=== PATIENT | female | born 1995 | race Caucasian/White ===

== ENCOUNTER → 2025-02-19 | Outpatient (CLI) | payer OTHER, SELFPAY ==
[2025-02-23 21:07] LABS: Chlamydia By Nucleic Acid AMP Negative (Negative); Gonococcus By Nucleic Acid AMP Negative (Negative)
== END | disposition home or self-care (01) ==
LOC: LABSPEC 16:06
PROVIDERS: Visit Provider Advanced Practice Midwife
DX: O09.90 Supervision of high risk pregnancy, unspecified, unspecified trimester (principal); Z3A.00 Weeks of gestation of pregnancy not specified
CPT/HCPCS: 87086; 87088; 87491; 87591

== ENCOUNTER → 2025-04-20 | Outpatient (CLI) | payer OTHER, SELFPAY ==
--- OUTSIDE RECORDS SUMMARY | 2024-12-05 07:26 | XMS RPT_ITS ---
Author Name Auto Generated Organization OHIP Care Team Providers Care Wardrobe Coordinator Name Role Phone JS BUTTERFIELD Attending Unavailable IVÁN RODRIGUEZ Primary Care Unavailabl e LINDSAY SYKES Attending Unavailable JS BUTTERFIELD Primary Care Unavailable JS BUTTERFIELD Attending Unavailable JS BUTTERFIELD Primary Care Unavailable JS BUTTERFIELD Primary Care Unavailable PROBLEMS DATE TYPE CONDITION / CODE ATTENDING STATUS [facility] 12/05/2024 Admitting Diagnosis Diarrhea, unspecified / R19.7(ICD-10) JS BUTTERFIELD [facility] 11/06/2024 Admitting Diagnosis Encounter for screening for malignant neoplasm of cervix / Z12.4(ICD-10) LINDSAY SYKES [facility] 11/06/2024 Admitting Diagnosis Encounter for gynecological examination (general) (routine) without abnormal findings / Z01.419(ICD-10) LINDSAY SYKES [facility] 05/23/2024 Admitting Diagnosis Encounter for general adult medical examination without abnormal findings / Z00.00(ICD-10) JS BUTTERFIELD [facility] 05/23/2024 Admitting Diagnosis Encounter for other screening for malignant neoplasm of breast / Z12.39(ICD-10) JS BUTTERFIELD Active [facility] PROCEDURES No Procedure Records Found RESULTS GASTROINTESTINAL PATHOGEN PANEL, REAL TIME PCR Collected: 12/05/2024 11:10 AM Status: F Source: [facility] Order Comment: FASTING:YES FASTING: YES TYPE CODE TESTS RESULT OUT OF RANGE REFERENCE UNITS LAB [id number] CAMPYLOBACTER GROUP NOT DETECTED Normal NOT DETECTED LAB [id number] SALMONELLA SPECIES NOT DETECTED Normal NOT DETECTED LAB 99517086 SHIGELLA SPECIES NOT DETECTED Normal NOT DETECTED LAB 93220467 VIBRIO GROUP NOT DETECTED Normal NOT DETECTED LAB 91437023 YERSINIA ENTEROCOLITICA NOT DETECTED Normal NOT DETECTED LAB 64272554 SHIGA TOXIN 1 NOT DETECTED Normal NOT DETECTED LAB 63187503 SHIGA TOXIN 2 NOT DETECTED Normal NOT DETECTED LAB 93453627 NOROVIRUS GI/GII NOT DETECTED Normal NOT DETECTED LAB 88139944 ROTAVIRUS A NOT DETECTED Normal NOT DETECTED Result Comment: Organisms in cluded in the Campylobacter group include C. coli, C. jejuni, and C. aretha. Organisms included in the Shigella species include S. dysenteriae, S. boydii, S. sonnei, and S. flexneri. Organisms included in the Vibrio group include V. cholerae and V. parahaemolyticus. Performed By: #### [id number] ### # [facility] [address], [address] [place] [phone] Director Orange: Amish Willis MD HUMAN PAPILLOMA VIRUS 16 Collected: 3:49 PM Status: F Source: [facility] Order Comment: Testing for h igh-risk (HR) types of human papilloma virus (HPV) is performed by the [place] gogo HPV Test. The gogo HPV Test is a qualitative polymerase chain reaction that amplifies DNA of HPV16, HPV18, and 12 other high-risk HPV types (31, 33, 35, 39, 45, 51, 52, 56, 58, 59, 66, and 68) associated with cervical cancer and its precursor lesions. A positive result indicates the presence of HPV DNA due to one or more of the 14 genotypes: 16, 18, 31, 33, 35, 39, 45, 51, 52, 56, 58, 59, 66, and 68. Negative results indicates HPV DNA concentrations are undectectable or below the pre-set threshold for detection. False negative results may be associated with unoptimized sampling. A negative HR HPV result does not exclude the possibility of future cytologic HSIL or underlying CIN2-3 or cancer. This test is approved by the [place] Food and Drug Administration. Results of this test should be interpreted in conjunction with the patient Pap test results. Please refer to ASCCP current quidelines for the use of HPV DNA testing, result interpretation, and patient management. The performance of this test was verified by the [facility] at [facility]. The lab is certified under the Clinical Laboratory Amendments of 1988 (CLIA 88) as qualified to perform high complexity clinical laboratory testing. PERFORMING LAB LOCATIONS [facility]: [address] [place] [address] TYPE CODE TESTS RESULT OUT OF RANGE REFERENCE UNITS LAB 51035-1([facility]) Human papilloma virus high-risk genotypes panel Negative Negative LAB 75007-3([facility]) Human papilloma virus 16 DNA Negative Negative LAB 40444-0([facility]) Human papilloma virus 18 DNA Negative Negative LAB 17123-6([facility]) Human papilloma virus 31+33+35+39+4 5+51+52+56+58 +59+66+68 DNA Negative Negative Performed By: #### 01710-3 # ### HAILEY Pacheco ([id number]) [facility] ([facility]) [address] [place] [address] CERVICAL Observed: 11/06/2024 3:49 PM Status: F Source: [facility] Pathology report.total SEE COMMENT Gynecologic Cytology Case: [id number] Authorizing Provider: ELI Penaloza, Collected: 11/06/2024 1549 WANDA, LINDA Ordering Location: [facility] Received: 11/06/2024 1549 First Screen: CHET Gomes Rescreen: CHET Mejía Specimen: ThinPrep Liquid-Based Pap-Imaging System Screen, CERVIX, SCREENING Cytology study comment SEE COMMENT A. THINPREP PAP CERVIX, SCREENING - Specimen Adequacy Satisfactory for evaluation; endocervical/transformation zone component is present General Categorization Negative for intraepithelial lesion or malignancy. Descriptive Interpretation Negative for intraepithelial lesion or malignancy at 1101 EDT Laboratory comment SEE COMMENT Slide(s) initially screened by CHET Gomes at [facility] [address] [place] [address] QC review performed by CHET Mejía at [id number] [facility] [phone] By the signature on this report, the individual or group listed as making the Final Interpretation/Diagnosis certifies that they have reviewed this case. This specimen has been analyzed by the [employer] Technology[employer] Imaging System (Go[employer], [employer].), an automated imaging and review system, which assists the laboratory in evaluating cells on ThinPrep Pap tests. Following automated imaging, selected shell from every slide were reviewed by a impregnator carbon products and/or pathologist. Cervical cytology is a screening procedure primarily for squamous cancers and precursors and has associated false-negative and false-positives results as evidenced by published data. Your patient's test should be interpreted in this context, together with the patient's history and clinical findings. Regular sampling and follow-up of unexplained clinical signs and symptoms are recommended to minimize false negative results. LAB AP HPV HR Always (all interpretations) LAB AP HPV GENOTYPE QUESTION Yes Date last menstrual period 10/21/2024 BRCA 1/2 SEQUENCING AND DEL/DUP Collected: 10/09/2024 6:07 AM Status: C Source: [facility] Order Comment: This order co ntains result documents that were not sent. The result might be incomplete. TYPE CODE TESTS RESULT OUT OF RANGE REFERENCE UNITS LAB [id number] SCAN RESULT See Scanned Result LAB MPRESULTTYPE COMMENTS - MP RESULT TYPE Report has been scanned to the patient's chart. Performed By: #### [id number] #### [facility] ([id number]) [address] [place] [address] LIPID PANEL, STANDARD Collected: 10/09/2024 6:05 AM Status: F Source: [facility] Order Comment: FASTING:YES FASTING: YES TYPE CODE TESTS RESULT OUT OF RANGE REFERENCE UNITS LAB [id number] CHOLESTEROL, TOTAL 153 Normal <200 mg/dL LAB 62985281 HDL CHOLESTEROL 49 Low > OR = 50 mg/dL LAB 91943364 TRIGLYCERIDES 80 Normal <150 mg/dL LAB 79026674 LDL-CHOLESTEROL 87 Normal mg/dL (calc) Result Comment: Reference ra nge: <100 Desirable range <100 mg/dL for primary prevention; <70 mg/dL for patients with CHD or diabetic patients with > or = 2 CHD risk factors. LDL-C is now calculated using the Rosie calculation, which is a validated novel method providing better accuracy than the Friedewald equation in the estimation of LDL-C. Jordi MORALES et al. MAC. 2013;310(19): 8183-8012 (http://education.LeukoDx.Silicium Energy/faq/WRQ089) LAB 91186457 CHOL/HDLC RATIO 3.1 Normal <5.0 (calc) LAB 51503482 NON HDL CHOLESTEROL 104 Normal <130 mg/dL (calc) Result Comment: For patients with diabetes plus 1 major ASCVD risk factor, treating to a non-HDL-C goal of <100 mg/dL (LDL-C of <70 mg/dL) is considered a therapeutic option. Performed By: #### 7600, 926 65, 9935, 13311 #### [facility] [address], [address] [place] [phone] Director Orange: Amish Willis MD COMPREHENSIVE METABOLIC PANE L W/ANION GAP Collected: 10/09/2024 6:05 AM Status: F Source: [facility] TYPE CODE TESTS RESULT OUT OF RANGE REFERENCE UNITS LAB 39926770 GLUCOSE 92 Normal 65-99 mg/dL Result Comment: Fasting reference interval LAB 34950980 UREA NITROGEN (BUN) 18 Normal 7-25 mg/dL LAB 06865465 CREATININE 0.94 Normal 0.50-0.97 mg/dL LAB 66007200 EGFR 84 Normal > OR = 60 mL/min/1 .73m2 LAB 34991118 SODIUM 138 Normal 135-146 mmol/L LAB 09937524 POTASSIUM 4.7 Normal 3.5-5.3 mmol/L LAB 71906073 CHLORIDE 105 Normal 98-110 mmol/L LAB 38024467 CARBON DIOXIDE 26 Normal 20-32 mmol/L LAB 32733133 ELECTROLYTE BALANCE 7 Normal 7-17 mmol/L (calc) LAB 11694063 CALCIUM 9.3 Normal 8.6-10.2 mg/dL LAB 10119640 PROTEIN, TOTAL 7.0 Normal 6.1-8.1 g/dL LAB 56913900 ALBUMIN 4.6 Normal 3.6-5.1 g/dL LAB 39151810 BILIRUBIN, TOTAL 0.4 Normal 0.2-1.2 mg/dL LAB 93441101 ALKALINE PHOSPHATASE 49 Normal 31-125 U/L LAB 37235482 AST 13 Normal 10-30 U/L LAB 73890354 ALT 13 Normal 6-29 U/L Performed By: #### 7600, 926 86, 3867, 61614 #### [facility] [address], [address] [place] [phone] Director Orange: Amish Willis MD CBC (INCLUDES DIFF/PLT) Collected: 10/09/2024 6:05 AM Status: I Source: [facility] TYPE CODE TESTS RESULT OUT OF RANGE REFERENCE UNITS LAB 20574611 WHITE BLOOD CELL COUNT LAB 42285686 RED BLOOD CELL COUNT LAB 26816277 HEMOGLOBIN LAB 21630603 HEMATOCRIT LAB 21695401 MCV LAB 10724631 MCH LAB 31775788 MCHC LAB 45363587 RDW LAB 11090017 PLATELET COUNT LAB 30232358 MPV LAB 08668009 ABSOLUTE NEUTROPHILS LAB 80793859 ABSOLUTE BAND NEUTROPHILS LAB 66543254 ABSOLUTE METAMYELOCYTES LAB 09450404 ABSOLUTE MYELOCYTES LAB 02671004 ABSOLUTE PROMYELOCYTES LAB 29334238 ABSOLUTE LYMPHOCYTES LAB 63595055 ABSOLUTE MONOCYTES LAB 54661216 ABSOLUTE EOSINOPHILS LAB 95282842 ABSOLUTE BASOPHILS LAB 91383162 ABSOLUTE BLASTS LAB 31091810 ABSOLUTE NUCLEAT ED RBC LAB 18370104 NEUTROPHILS LAB 56590700 BAND NEUTROPHILS LAB 23873078 METAMYELOCYTES LAB 44286690 MYELOCYTES LAB 81386034 PROMYELOCYTES LAB 64470128 LYMPHOCYTES LAB 47904465 REACTIVE LYMPHOCYTES LAB 86134386 MONOCYTES LAB 82002626 EOSINOPHILS LAB 87853139 BASOPHILS LAB 56533171 BLASTS LAB 75885907 NUCLEATED RBC LAB 38008101 COMMENT(S) Performed By: #### 7600, 926 65, 1537, 95209 #### [facility] [address], [address] [place] [address] Director Orange: Amish Willis MD TSH W/REFLEX TO FT4 Collected: 10/10/19 6:05 AM Status: F Source: [facility] TYPE CODE TESTS RESULT OUT OF RANGE REFERENCE UNITS LAB 48322836 TSH W/REFLEX TO FT4 3.58 Normal mIU/L Result Comment: Reference Ra nge > or = 20 Years 0.40-4.50 Ranges First trimester 0.26-2.66 Second trimester 0.55-2.73 Third trimester 0.43-2.91 Performed By: #### 7600, 262 24, 9100, 01755 #### [facility] [address] [facility], [address] [place] [phone] Director Orange: Amish Willis MD ALLERGIES DATE TYPE / CODE NAME / CODE REACTION SEVERITY SOURCE 07/24/2023 Drug Class/50844189 3(SNOMED CT) SULFA (SULFONAMIDE ANTIBIOTICS) Anaphylaxis~Anxie ty~Hives~Sob~Swel ling [facility] ENCOUNTERS ADMIT/DISCHARGE ACCOUNT NUMBER ADMITTING ENCOUNTER CLASS LOCATION SOURCE 12/05/2024/ 5 [id number] Ambulatory Building:[facility] [id number] [facility] 11/06/2024/ 5 [id number] [facility] 10/09/2024/ 5 [id number] Ambulatory Building:[facility] 05/23/2024/ 4 [id number] Ambulatory Building:[address] Ambulatory PAYERS ENCOUNTER GUARANTOR PAYER SUBSCRIBER SOURCE 12/05/2024 GENARO JURADOB: [place], [place] [address]Oaj: () Primary Insurance:[facility] Number: [id number] ve Date:2023-07-23 GENARO JURADOB: [id number] [place], [place] [address]Oka: () [facility] 11/06/2024 GENARO JURADOB: [place], [place] [address]Icl: () Primary Insurance:[facility] Number: [id number] ve Date:2023-07-23 GENARO JURADOB: [id number] [place], [place] [address]Cpa: () [facility] 10/09/2024 GENARO KIMBLETILBURGDOB: [place], [place] [address]Aiy: () Primary Insurance:[facility] Number: [id number] ve Date:2023-07-23 GENARO KIMBLETILBURGDOB: [id number] [place], [place] [address]Dea: () [facility] 05/23/2024 GENARO KIMBLETILBURGDOB: [place], [place] [address]Nsb: () Primary Insurance:[facility] Number: [id number] ve Date:2023-07-23 GENARO KIMBLETILBURGDOB: [id number] [place], [place] [address]Yuj: () [facility]
--- OUTSIDE RECORDS SUMMARY | 2024-12-05 07:26 | XMS RPT_ITS ---
Author Name Auto Generated Organization OH[facility] Care Team Providers Care Nutrition Faculty Member Name Role Phone JS BUTTERFIELD Attending Unavailable IVÁN RODRIGUEZ Primary Care Unavailabl e LINDSAY SYKES Attending Unavailable JS BUTTERFIELD Primary Care Unavailable JS BUTTERFIELD Attending Unavailable JS BUTTERFIELD Primary Care Unavailable JS BUTTERFIELD Primary Care Unavailable PROBLEMS DATE TYPE CONDITION / CODE ATTENDING STATUS [facility] 12/05/2024 Admitting Diagnosis Diarrhea, unspecified / R19.7(ICD-10) JS BUTTERFIELD [facility] 11/06/2024 Admitting Diagnosis Encounter for screening for malignant neoplasm of cervix / Z12.4(ICD-10) LINDSAY SYKES [facility] 11/06/2024 Admitting Diagnosis Encounter for gynecological examination (general) (routine) without abnormal findings / Z01.419(ICD-10) LINDSAY SYKES [facility] 05/23/2024 Admitting Diagnosis Encounter for general adult medical examination without abnormal findings / Z00.00(ICD-10) JS BUTTERFIELD [facility] 05/23/2024 Admitting Diagnosis Encounter for other screening for malignant neoplasm of breast / Z12.39(ICD-10) JS BUTTERFIELD Active [facility] PROCEDURES No Procedure Records Found RESULTS GASTROINTESTINAL PATHOGEN PANEL, REAL TIME PCR Collected: 12/05/2024 11:10 AM Status: F Source: [facility] Order Comment: FASTING:YES FASTING: YES TYPE CODE TESTS RESULT OUT OF RANGE REFERENCE UNITS LAB [id number] CAMPYLOBACTER GROUP NOT DETECTED Normal NOT DETECTED LAB [id number] SALMONELLA SPECIES NOT DETECTED Normal NOT DETECTED LAB [id number] SHIGELLA SPECIES NOT DETECTED Normal NOT DETECTED LAB 59117944 VIBRIO GROUP NOT DETECTED Normal NOT DETECTED LAB 97857380 YERSINIA ENTEROCOLITICA NOT DETECTED Normal NOT DETECTED LAB 75557810 SHIGA TOXIN 1 NOT DETECTED Normal NOT DETECTED LAB 12345380 SHIGA TOXIN 2 NOT DETECTED Normal NOT DETECTED LAB 69639949 NOROVIRUS GI/GII NOT DETECTED Normal NOT DETECTED LAB 89001073 ROTAVIRUS A NOT DETECTED Normal NOT DETECTED Result Comment: Organisms in cluded in the Campylobacter group include C. coli, C. jejuni, and C. aretha. Organisms included in the Shigella species include S. dysenteriae, S. boydii, S. sonnei, and S. flexneri. Organisms included in the Vibrio group include V. cholerae and V. parahaemolyticus. Performed By: #### [id number] ### # [facility] [address], [address] [place] [phone] Digital Media Designer: Amish Willis MD HUMAN PAPILLOMA VIRUS 16 Collected: 3:49 PM Status: F Source: [facility] Order Comment: Testing for h igh-risk [...] verified by the [facility] at [facility]. The lab is certified under the Clinical Laboratory Amendments of 1988 (CLIA 88) as qualified to perform high complexity clinical laboratory testing. PERFORMING LAB LOCATIONS [facility]: [address] [place] [address] TYPE CODE TESTS RESULT OUT OF RANGE REFERENCE UNITS LAB 79704-8([facility]) Human papilloma virus high-risk genotypes panel Negative Negative LAB 82253-7([facility]) Human papilloma virus 16 DNA Negative Negative LAB 08584-9([facility]) Human papilloma virus 18 DNA Negative Negative LAB 01063-5([facility]) Human papilloma virus 31+33+35+39+4 5+51+52+56+58 +59+66+68 DNA Negative Negative Performed By: #### 64539-4 # ### HAILEY Pacheco ([id number]) [facility] ([facility]) [address] [place] [address] CERVICAL Observed: 11/06/2024 3:49 PM Status: F Source: [facility] Pathology report.total SEE COMMENT Gynecologic Cytology Case: [id number] Authorizing Provider: ELI Penaloza, Collected: 11/06/2024 1549 WANDA, LINDA Ordering Location: [facility] Received: 11/06/2024 1549 First Screen: CHET [...] Slide(s) initially screened by CHET Gomes at [facility] [address] [place] [address] QC review performed by CHET Mejía at [facility] [facility] [phone] By the signature on this report, the individual or group listed as making the Final Interpretation/Diagnosis certifies that they have reviewed this case. This specimen has been analyzed by the InnerWirelessPrep Imaging System (Content [employer]: [employer], [employer].), an automated imaging and review system, which assists the laboratory in evaluating cells on ThinPrep Pap tests. Following automated imaging, selected shell from every slide were reviewed by a job development specialist and/or pathologist. Cervical cytology is a screening [...] Collected: 10/09/2024 6:07 AM Status: C Source: [facility] Order Comment: This order co ntains result documents that were not sent. The result might be incomplete. TYPE CODE TESTS RESULT OUT OF RANGE REFERENCE UNITS LAB [id number] SCAN RESULT See Scanned Result LAB MPRESULTTYPE COMMENTS - MP RESULT TYPE Report has been scanned to the patient's chart. Performed By: #### [id number] DEL #### [facility] ([id number]) [address] [place] [address] LIPID PANEL, STANDARD Collected: 10/09/2024 6:05 AM Status: F Source: [facility] Order Comment: FASTING:YES FASTING: YES TYPE CODE TESTS RESULT OUT OF RANGE REFERENCE UNITS LAB [id number] CHOLESTEROL, TOTAL 153 Normal <200 mg/dL LAB 70761744 HDL CHOLESTEROL 49 Low > OR = 50 mg/dL LAB 78814426 TRIGLYCERIDES 80 Normal <150 mg/dL LAB 40340663 LDL-CHOLESTEROL 87 Normal mg/dL (calc) Result Comment: [...] LDL-C. Jordi MORALES et al. MAC. 2013;310(19): 7721-8257 (http://education.CliqSearch.4Less/faq/NTY091) LAB 87395526 CHOL/HDLC RATIO 3.1 Normal <5.0 (calc) LAB 95972220 NON HDL CHOLESTEROL 104 Normal <130 mg/dL (calc) Result Comment: For patients with diabetes plus 1 major ASCVD risk factor, treating to a non-HDL-C goal of <100 mg/dL (LDL-C of <70 mg/dL) is considered a therapeutic option. Performed By: #### 7600, 926 65, 8136, 50261 #### [facility] [address], [address] [place] [phone] Digital Media Designer: Amish Willis MD COMPREHENSIVE METABOLIC PANE L W/ANION GAP Collected: 10/09/2024 6:05 AM Status: F Source: [facility] TYPE CODE TESTS RESULT OUT OF RANGE REFERENCE UNITS LAB [id number] GLUCOSE 92 Normal 65-99 mg/dL Result Comment: Fasting reference interval LAB 63207387 UREA NITROGEN (BUN) 18 Normal 7-25 mg/dL LAB 69577977 CREATININE 0.94 Normal 0.50-0.97 mg/dL LAB 55887971 EGFR 84 Normal > OR = 60 mL/min/1 .73m2 LAB 52695013 SODIUM 138 Normal 135-146 mmol/L LAB 43398684 POTASSIUM 4.7 Normal 3.5-5.3 mmol/L LAB 60672815 CHLORIDE 105 Normal 98-110 mmol/L LAB 92271960 CARBON DIOXIDE 26 Normal 20-32 mmol/L LAB 94700472 ELECTROLYTE BALANCE 7 Normal 7-17 mmol/L (calc) LAB 50671726 CALCIUM 9.3 Normal 8.6-10.2 mg/dL LAB 90556934 PROTEIN, TOTAL 7.0 Normal 6.1-8.1 g/dL LAB 10702370 ALBUMIN 4.6 Normal 3.6-5.1 g/dL LAB 77561310 BILIRUBIN, TOTAL 0.4 Normal 0.2-1.2 mg/dL LAB 37225986 ALKALINE PHOSPHATASE 49 Normal 31-125 U/L LAB 65080490 AST 13 Normal 10-30 U/L LAB 93253738 ALT 13 Normal 6-29 U/L Performed By: #### 7600, 926 18, 5938, 62347 #### [facility] [address], [address] [place] [phone] Digital Media Designer: Amish Willis MD CBC (INCLUDES DIFF/PLT) Collected: 10/09/2024 6:05 AM Status: I Source: [facility] TYPE CODE TESTS RESULT OUT OF RANGE REFERENCE UNITS LAB 12108141 WHITE BLOOD CELL COUNT LAB 79539120 RED BLOOD CELL COUNT LAB 52779656 HEMOGLOBIN LAB 63505325 HEMATOCRIT LAB 52562051 MCV LAB 25849430 MCH LAB 92449132 MCHC LAB 08464778 RDW LAB 97875743 PLATELET COUNT LAB 27562357 MPV LAB 43691959 ABSOLUTE NEUTROPHILS LAB 24990529 ABSOLUTE BAND NEUTROPHILS LAB 89175365 ABSOLUTE METAMYELOCYTES LAB 03289372 ABSOLUTE MYELOCYTES LAB 69455009 ABSOLUTE PROMYELOCYTES LAB 87162962 ABSOLUTE LYMPHOCYTES LAB 62498496 ABSOLUTE MONOCYTES LAB 00337120 ABSOLUTE EOSINOPHILS LAB 02540572 ABSOLUTE BASOPHILS LAB 08434942 ABSOLUTE BLASTS LAB 96801087 ABSOLUTE NUCLEAT ED RBC LAB 25227411 NEUTROPHILS LAB 43522187 BAND NEUTROPHILS LAB 70545136 METAMYELOCYTES LAB 98926244 MYELOCYTES LAB 98435200 PROMYELOCYTES LAB 98043543 LYMPHOCYTES LAB 33476280 REACTIVE LYMPHOCYTES LAB 97642928 MONOCYTES LAB 89572714 EOSINOPHILS LAB 58462285 BASOPHILS LAB 59043059 BLASTS LAB 29149822 NUCLEATED RBC LAB 34658772 COMMENT(S) Performed By: #### 7600, 926 65, 9556, 28368 #### [facility] [address], [address] [place] [address] Digital Media Designer: Amish Willis MD TSH W/REFLEX TO FT4 Collected: 10/10/19 6:05 AM Status: F Source: [facility] TYPE CODE TESTS RESULT OUT OF RANGE REFERENCE UNITS LAB 71795450 TSH W/REFLEX TO FT4 3.58 Normal mIU/L Result Comment: Reference Ra nge > or = 20 Years 0.40-4.50 Ranges First trimester 0.26-2.66 Second trimester 0.55-2.73 Third trimester 0.43-2.91 Performed By: #### 7600, 790 95, 9999, 98593 #### [facility] [place] [id number] [facility], [address] [place] [phone] Digital Media Designer: Amish Willis MD ALLERGIES DATE TYPE / CODE NAME / CODE REACTION SEVERITY SOURCE 07/24/2023 Drug Class/91714791 3(SNOMED CT) SULFA (SULFONAMIDE ANTIBIOTICS) Anaphylaxis~Anxie ty~Hives~Sob~Swel ling [facility] ENCOUNTERS ADMIT/DISCHARGE ACCOUNT NUMBER ADMITTING ENCOUNTER CLASS LOCATION SOURCE 12/05/2024/ 5 [id number] Ambulatory Building:[facility] [id number] [facility] 11/06/2024/ 5 [id number] Ambulatory Building:[facility] 10/09/2024/ 5 [id number] Ambulatory Building:[facility] 05/23/2024/ 4 [id number] Ambulatory Building:[address] Ambulatory PAYERS ENCOUNTER GUARANTOR PAYER SUBSCRIBER SOURCE 12/05/2024 GENARO JURADOB: [place], [place] [address]Jla: () Primary Insurance:[facility] Number: [id number] ve Date:2023-07-23 GENARO JURADOB: [id number] [place], [place] [address]Dcx: () [facility] 11/06/2024 GENARO JURADOB: [place], [place] [address]Sjk: () Primary Insurance:[facility] Number: [id number] ve Date:2023-07-23 GENARO JURADOB: [id number] [place], [place] [address]Drj: () [facility] 10/09/2024 GENARO KIMBLETILBURGDOB: [place], [place] [address]Vak: () Primary Insurance:[facility] Number: [id number] ve Date:2023-07-23 GENARO KIMBLETILBURGDOB: [id number] [place], [place] [address]Uio: () [facility] 05/23/2024 GENARO KIMBLETILBURGDOB: [place], [place] [address]Jnn: () Primary Insurance:[facility] Number: [id number] ve Date:2023-07-23 GENARO KIMBLETILBURGDOB: [id number] [place], [place] [address]Php: () [facility]
[2025-04-20 10:42] LABS: Hematocrit 35.5 % (37-47); Hemoglobin 12.2 g/dL (12.0-15.0); Immature Granulocytes Count 0.050 X10^3/uL (0.0-0.0); Mean Corp Hgb Conc 34.4 g/dL (32-36); Mean Corpuscular Volume 91.5 fL (81-99); Mean Platelet Vol. 10.3 fl (6.2-12.0); NRBC Flagged by Analyzer 0 % (0-5); Platelet Count 190 K/mm3 (150-450); RBC Distribution Width CV 12.7 % (11.6-14.6); RBC Distribution Width SD 42.2 fl (35.1-43.9); Red Blood Count 3.88 M/mm3 (4.2-5.4); White Blood Count 8.2 K/mm3 (4.4-11.0)
[2025-04-20 11:23] LABS: HIV Nonreactive (Nonreactive); Hepatitis B Surface Antigen Nonreactive (Nonreactive); Hepatitis C Antibody Nonreactive (Nonreactive); Syphilis Antibodies Nonreactive (Nonreactive)
== END | disposition home or self-care (01) ==
PROVIDERS: Referring Provider Advanced Practice Midwife; Visit Provider Advanced Practice Midwife
DX: O09.90 Supervision of high risk pregnancy, unspecified, unspecified trimester (principal); O99.210 Obesity complicating pregnancy, unspecified trimester; Z3A.00 Weeks of gestation of pregnancy not specified
CPT/HCPCS: 36415; 83036; 85025; 86703; 86762; 86780; 86803; 86850; 86900; 86901; 87340

== ENCOUNTER → 2025-06-30 | Outpatient (CLI) | payer OTHER, SELFPAY ==
[2025-06-30 10:48] LABS: Hematocrit 35.4 % (37-47); Hemoglobin 11.9 g/dL (12.0-15.0); Immature Granulocytes Count 0.060 X10^3/uL (0.0-0.0); Mean Corp Hgb Conc 33.6 g/dL (32-36); Mean Corpuscular Volume 92.2 fL (81-99); Mean Platelet Vol. 9.8 fl (6.2-12.0); NRBC Flagged by Analyzer 0 % (0-5); Platelet Count 183 K/mm3 (150-450); RBC Distribution Width CV 12.6 % (11.6-14.6); RBC Distribution Width SD 41.9 fl (35.1-43.9); Red Blood Count 3.84 M/mm3 (4.2-5.4); White Blood Count 8.4 K/mm3 (4.4-11.0)
[2025-06-30 11:24] LABS: Glucose Challenge Gest 1H 50g 139 mg/dL (70-140); HIV Nonreactive (Nonreactive); Syphilis Antibodies Nonreactive (Nonreactive)
== END | disposition home or self-care (01) ==
LOC: LAB 09:19
PROVIDERS: Referring Provider Obstetrics & Gynecology; Visit Provider Obstetrics & Gynecology
DX: O09.92 Supervision of high risk pregnancy, unspecified, second trimester (principal); Z3A.25 25 weeks gestation of pregnancy; Z13.1 Encounter for screening for diabetes mellitus
CPT/HCPCS: 36415; 82950; 85025; 86703; 86780

== ENCOUNTER → 2025-07-08 | Outpatient (CLI) | payer OTHER, SELFPAY ==
--- OUTSIDE RECORDS SUMMARY | 2025-07-08 07:04 | XMS RPT_ITS | CCD ---
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 reviewed and updated with the most current plan of care details and appropriate orders placed. Relevant counseling for the gestational age provided. Continue routine care and follow up unless otherwise noted in visit notes/problem list details Initial Weight: 206 lb Date -???-???-???-???-???-??? -???-???-???-???-???-??? - EGA Weight BP Urine Prot -???-???-???-???-???-??? -???-???-???-???-???-??? - Glucose FHR FuHt Pres Dilation -???-???-???-???-???-??? -???-???-???-???-???-??? - Effaced St Visit Note 02/19/25 -???-???-???-???-???-??? -???-???-???-???-???-??? - 9w 3d 206 lb 8 oz (+8 oz) 124/83 -???-???-???-???-???-??? -???-???-???-???-???-??? - 172 -???-???-???-???-???-??? -???-???-???-???-???-??? - KW- CRL 2.66 and cons with dates. accepts NIPT 03/19/25 -???-???-???-???-???-??? -???-???-???-???-???-??? - 13w 3d 216 lb 5 oz (+10 lb 5 oz) 120/84 Negative -???-???-???-???-???-??? -???-???-???-???-??? (more content not included)... Normal [facility] Absolute lymphocyte countOrd ered By: Johana Hightower on 04-20-2025 Lymphocytes Auto (Unsp spec) [#/Vol] 1.35 10*3/uL 0.83-4.51 [facility] Absolute neutrophil countOrd ered By: Johana Hightower on 04-20-2025 Neutrophils (Bld) [#/Vol] 6.2 10*3/uL 2.0-7.7 [facility] Automated lymphocyte count a s percentage of total leukocytesOrdered By: Johana Hightower on 04-20-2025 Lymphocytes/100 WBC Auto (Unsp spec) 16.4 % Low 19-41 [facility] Basophil percentageOrdered B y: Johana Hightower on 04-20-2025 Basophils/100 WBC (Bld) 0.5 % 0-1 [facility] CBC W/Diff, Automatedon 03-24 Absolute Lymph 1.35 X10 3/uL Normal 0.83-4.51 [facility] Comment on above: Performed By: #### L 509.4006, L509.8002, L100.0100, BTS, L3890.6102, L3890.6301, L501.9985, L3890.6006 #### [facility] [address] [place], [address] Absolute Neut 6.2 X10 3/uL Normal 2.0-7.7 [facility] Comment on above: Performed By: #### L 509.4006, L509.8002, L100.0100, BTS, L3890.6102, L3890.6301, L501.9985, L3890.6006 #### [facility] [address] [place], [address] Basophils/100 WBC (Bld) 0.5 % Normal 0-1 [facility] Comment on above: Performed By: #### L 509.4006, L509.8002, L100.0100, BTS, L3890.6102, L3890.6301, L501.9985, L3890.6006 #### [facility] [address] [place], [address] Eosinophils/100 WBC (Bld) 1.0 % Normal 0-5 [facility] Comment on above: Performed By: #### L 509.4006, L509.8002, L100.0100, BTS, L3890.6102, L3890.6301, L501.9985, L3890.6006 #### [facility] [address] [place], [address] Erythrocyte distribution width (RBC) [Ratio] 12.7 % Normal 11.6-14.6 [facility] Comment on above: Performed By: #### L 509.4006, L509.8002, L100.0100, BTS, L3890.6102, L3890.6301, L501.9985, L3890.6006 #### [facility] [address] [place], [address] Hematocrit (Bld) [Volume fraction] 35.5 % Low 37-47 [facility] Comment on above: Performed By: #### L 509.4006, L509.8002, L100.0100, BTS, L3890.6102, L3890.6301, L501.9985, L3890.6006 #### [facility] [address] [place], [address] Hemoglobin (Bld) [Mass/Vol] 12.2 g/dL Normal 12.0-15.0 [facility] Comment on above: Performed By: #### L 509.4006, L509.8002, L100.0100, BTS, L3890.6102, L3890.6301, L501.9985, L3890.6006 #### [facility] [address] [place], [address] IG% 0.600 Normal 0.0-0.9 [facility] Comment on above: Result Comment: IG% - Immature Granulocytes (promyelocytes, myelocytes and metamyelocytes) > 1% indicates that a LEFT SHIFT is Present. Performed By: #### L 509.4006, L509.8002, L100.0100, BTS, L3890.6102, L3890.6301, L501.9985, L3890.6006 #### [facility] [address] [place], [address] Lymphocytes/100 WBC (Bld) 16.4 % Low 19-41 [facility] Comment on above: Performed By: #### L 509.4006, L509.8002, L100.0100, BTS, L3890.6102, L3890.6301, L501.9985, L3890.6006 #### [facility] [address] [place], [address] MCH (RBC) [Entitic mass] 31.4 pg Normal 27.0-32.0 [facility] Comment on above: Performed By: #### L 509.4006, L509.8002, L100.0100, BTS, L3890.6102, L3890.6301, L501.9985, L3890.6006 #### [facility] [address] [place], [address] MCHC (RBC) [Mass/Vol] 34.4 g/dL Normal 32-36 [facility] Comment on above: Performed By: #### L 509.4006, L509.8002, L100.0100, BTS, L3890.6102, L3890.6301, L501.9985, L3890.6006 #### [facility] [address] [place], [address] MCV (RBC) [Entitic vol] 91.5 fL Normal 81-99 [facility] Comment on above: Performed By: #### L 509.4006, L509.8002, L100.0100, BTS, L3890.6102, L3890.6301, L501.9985, L3890.6006 #### [facility] [address] [place], [address] Monocytes/100 WBC (Bld) 6.3 % Normal 0-10 [facility] Comment on above: Performed By: #### L 509.4006, L509.8002, L100.0100, BTS, L3890.6102, L3890.6301, L501.9985, L3890.6006 #### [facility] [address] [place], [address] Neutrophils/100 WBC (Bld) 75.2 % High 47-70 [facility] Comment on above: Performed By: #### L 509.4006, L509.8002, L100.0100, BTS, L3890.6102, L3890.6301, L501.9985, L3890.6006 #### [facility] [address] [place], [address] Nucleated RBC (Bld) [#/Vol] 0 10*3/uL Normal 0-5 [facility] Comment on above: Performed By: #### L 509.4006, L509.8002, L100.0100, BTS, L3890.6102, L3890.6301, L501.9985, L3890.6006 #### [facility] [address] [place], [address] Platelet mean volume (Bld) [Entitic vol] 10.3 fL Normal 6.2-12.0 [facility] Comment on above: Performed By: #### L 509.4006, L509.8002, L100.0100, BTS, L3890.6102, L3890.6301, L501.9985, L3890.6006 #### [facility] [address] [place], [address] Platelets (Bld) [#/Vol] 190 10*3/uL Normal 150-450 [facility] Comment on above: Performed By: #### L 509.4006, L509.8002, L100.0100, BTS, L3890.6102, L3890.6301, L501.9985, L3890.6006 #### [facility] [address] [place], [address] RBC (Bld) [#/Vol] 3.88 10*6/uL Low 4.2-5.4 [facility] Comment on above: Performed By: #### L 509.4006, L509.8002, L100.0100, BTS, L3890.6102, L3890.6301, L501.9985, L3890.6006 #### [facility] [address] [place], [address] RDW SD 42.2 fl Normal 35.1-43.9 [facility] Comment on above: Performed By: #### L 509.4006, L509.8002, L100.0100, BTS, L3890.6102, L3890.6301, L501.9985, L3890.6006 #### [facility] [address] [place], [address] WBC (Bld) [#/Vol] 8.2 10*3/uL Normal 4.4-11.0 [facility] Comment on above: Performed By: #### L 509.4006, L509.8002, L100.0100, BTS, L3890.6102, L3890.6301, L501.9985, L3890.6006 #### [facility] [address] [place], [address] Eosinophil percentageOrdered By: Johana Hightower on 04-20-2025 Eosinophils/100 WBC (Bld) 1.0 % 0-5 [facility] Erythrocyte distribution wid th ratioOrdered By: Johana Hightower on 04-20-2025 Erythrocyte distribution width (RBC) [Ratio] 12.7 % 11.6-14.6 [facility] Erythrocyte distribution wid th standard deviationOrdered By: Johana Hightower on 04-20-2025 Erythrocyte distribution width (RBC) [Ratio] 42.2 fl 35.1-43.9 [facility] HIVon 04-20-2025 HIV Non-Reactive Normal Nonreactive [facility] Comment on above: Result Comment: Non- Reactive Reactive Repeatedly reactive samples must be confirmed according to CDC recommended confirmatory algorithms. The subresults for either HIVAG or AHIV can be used as an aid in the selection of the confirmation algorithm for reactive samples. Send out specimens with Reactive results to [facility] for confirmation. Order the HIV antibody detection and differentiation: [id number] Performed By: #### L 509.4006, L509.8002, L100.0100, BTS, L3890.6102, L3890.6301, L501.9985, L3890.6006 ####[facility] [address] [place], [address] Hematocrit Auto (Bld) [Volum e fraction]Ordered By: Johana Hightower on 04-20-2025 Hematocrit (Bld) [Volume fraction] 35.5 % Low 37-47 [facility] Hemoglobin A1con 04-20-2025 HbA1c (Bld) [Mass fraction] 5.0 % Normal <=5.6 [facility] Comment on above: Result Comment: Norm al < 5.7 % Prediabetic 5.7 - 6.4 % Diabetic >or= 6.5 % Please note range changes. Performed By: #### L 509.4006, L509.8002, L100.0100, BTS, L3890.6102, L3890.6301, L501.9985, L3890.6006 #### [facility] [address] [place], [place], [address] Hemoglobin A1c percentageOrd ered By: Johana Hightower on 04-20-2025 HbA1c (Bld) [Mass fraction] 5.0 % <5.7 [facility] Comment on above: Normal < 5.7 % Predi abetic 5.7 - 6.4 % Diabetic >or= 6.5 % Please note range changes. Hemoglobin measurementOrdere d By: Johana Hightower on 04-20-2025 Hemoglobin (Bld) [Mass/Vol] 12.2 g/dL 12.0-15.0 [facility] Hepatitis C Antibodyon 04-20 Hepatitis C Ab Non-Reactive Normal Nonreactive [facility] Comment on above: Result Comment: Reac tive: Presumptive evidence of antibodies to HCV. Follow CDC recommendations for supplemental testing. Non-Reactive: Antibodies to HCV were not detected; does not exclude the possibility of exposure to HCV Reactive Results are presumptive evidence of antibodies to HCV. Follow CDC recommendations for supplemental testing. Order confirmation testing: HCV Quant by PCR testing - HCVPCR #[id number] Non Reactive: < 0.8 Equivocal: >/= 0.8 to < 1.0 Reactive: >/= 1.0 The CDC requires that a reactive/equivocal HCV antibody result be sent out for confirmation. HCV Quant by PCR testing. Performed By: #### L 509.4006, L509.8002, L100.0100, BTS, L3890.6102, L3890.6301, L501.9985, L3890.6006 ####[facility] [address] [place], [place], [id number] Immature granulocytes/100 WB C Auto (Bld)Ordered By: Johana Hightower on 04-20-2025 Immature granulocytes/100 WBC (Bld) 0.600 % 0.0-0.9 [facility] Comment on above: IG% - Immature Granu locytes (promyelocytes, myelocytes and metamyelocytes) > 1% indicates that a LEFT SHIFT is Present. L3890.6102on 04-20-2025 HEP B Surf Ag Non-Reactive Normal Nonreactive [facility] Comment on above: Result Comment: Reac tive: Presumptive evidence of HBV. Repeatedly reactive samples must be confirmed using a neutralization test ([employer] HBsAg Confirmatory Test) Non-Reactive: HBsAg not detected; does not exclude the possibility of exposure to HBV Performed By: #### L 509.4006, L509.8002, L100.0100, BTS, L3890.6102, L3890.6301, L501.9985, L3890.6006 ####[facility] [address] [facility] [place], [address] L509.4006on 04-20-2025 Rubella IgG REAC Normal Nonreactive [facility] Comment on above: Result Comment: Anti body Result: Interpretation Non-Reactive: Non-Immune Reactive: Immune The following results were obtained with the [employer] Rubella IgG assay. Results from assays of other manufacturers cannot be used interchangeably. Performed By: #### L 509.4006, L509.8002, L100.0100, BTS, L3890.6102, L3890.6301, L501.9985, L3890.6006 #### [facility] [address] [facility] [place], [place], [id number] Laboratory - Chemistry and C hemistry - challengeOrdered By: Latisha Vega on 04-20-2025 Glucose Ql (U) Negative [facility] - Microbiology an d Antimicrobial susceptibilityOrdered By: Johana Hightower on 04-20-2025 HBV surface Ag Ql (S) Non-Reactive Nonreactive [facility] Comment on above: Reactive: Presumptiv e evidence of HBV. Repeatedly reactive samples must be confirmed using a neutralization test ([employer] HBsAg Confirmatory Test)Non-Reactive: HBsAg not detected; does not exclude the possibility of exposure to HBV Laboratory - UrinalysisOrder ed By: Latisha Vega on 04-20-2025 Protein Ql (U) Negative [facility] MCV (mean corpuscular volume ) determinationOrdered By: Johana Hightower on 04-20-2025 MCV (RBC) [Entitic vol] 91.5 fL 81-99 [facility] Mean corpuscular hemoglobin (MCH) determinationOrdered By: Johana Hightower on 04-20-2025 MCH (RBC) [Entitic mass] 31.4 pg 27.0-32.0 [facility] Mean corpuscular hemoglobin concentration (MCHC) determinationOrdered By: Johana Hightower on 04-20-2025 MCHC (RBC) [Mass/Vol] 34.4 g/dL 32-36 [facility] Mean platelet volume determi nationOrdered By: Johana Hightower on 04-20-2025 Platelet mean volume (Bld) [Entitic vol] 10.3 fL 6.2-12.0 [facility] Monocyte percentageOrdered B y: Johana Hightower on 04-20-2025 Monocytes/100 WBC (Bld) 6.3 % 0-10 [facility] Neutrophil percentageOrdered By: Johana Hightower on 04-20-2025 Neutrophils/100 WBC (Bld) 75.2 % High 47-70 [facility] No Panel InformationOrdered By: Johana Hightower on 04-20-2025 HIV (1&2) Antibody Non-Reactive Nonreactive [facility] Comment on above: Non-ReactiveReactive Repeatedly reactive samples must be confirmed according to CDC recommended confirmatory algorithms. The subresults for either HIVAG or AHIV can be used as an aid in the selection of the confirmation algorithm for reactive samples.Send out specimens with Reactive results to [facility] for confirmation.Order the HIV antibody detection and differentiation: #[id number] Nucleated red blood cell per centageOrdered By: Johana Hightower on 04-20-2025 Nucleated RBC/100 WBC (Bld) [Ratio] 0 % 0-5 [facility] Fire Controlman Office Visit Reporton 04-20-2025 Fire Controlman Office Visit Report [facility] [address], [address] [place] [address] OFFICE VISIT Date of Service: 04/20/25 MR#: [id number] Acct: [id number] Name: GENARO HATHAWAY Rep #: [id number] : 1995 Provider: AMANDA leon Age/Sex: 29/F Location: [facility] Status: Signed Intake Vital Signs 02/19/25 14:41 03/19/25 15:09 04/20/25 08:31 Height 5 ft 7 in 5 ft 7 in 5 ft 7 in Weight: 223 lb 3 oz BMI 34.9 BP 128/78 H Intake Visit Reasons: 17 wk ob Chief Complaint: 17 Week OB Iuss Master Analyst Required: No Is patient in pain?: No Allergies Sulfa (Sulfonamide Antibiotics) Allergy (Intermediate, Verified 04/20/25 08:33) Swelling Medications ???Medication ???Instructions ???Recorded ???Confirmed ???Type docosahexaenoic acid 200 mg mg PO 01/28/25 04/20/25 History capsule ( DHA) Last Menstrual Period: 12/15/24 Zika: Zika virus screening: Negative : No PFSH PFSH Surgical History [place] teeth removed S/P D C (status post dilation and curettage) Family History Mother Breast cancer History of kidney cancer Osteoporosis Father Hypertension Sister Pre-eclampsia Grandmother Breast cancer Aunt Breast cancer Aunt Acute rheumatoid arthritis Social History adopted: No household members: spouse and children number of children: 2 current occupational status: employed 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 pets and animals: Yes (Gloves/mask) pets and animals: cat(s) history of recent travel: Yes ([place]) out of state: Yes out of country: No sexually active: Yes Smoking Status: Former smoker quit date: 07/23/24 second hand exposure: Yes alcohol intake: never substance use type: does not use well-balanced diet: about half the time caffeine: Yes Type: coffee Number of servings: 1 eating out: 1-3 times/week during the past year weight has: decreased > 10 lbs what type of physical activity do you participate in: walking frequency: 5-6 times per week duration: 15-30 minutes/day katya/yazidism: Baptist seatbelt use: always do you feel safe at home: Yes additional social history: : Ayush - [employer] Work History 3 Elective abortions Hx Para 2 Spontaneous abortions Hx # Term Pregnancies Ectopic pregnancies Hx # Pregnancies Multiple births # of living children 2 Past Pregnancies Del. Date Name GA/Weeks Outcome Route Bth Weight Infant Gen Labor Lgth Anesthesia Del Locatn Provider FOB 05/15/18 Charlene 39 live - full term 7lbs 4oz Female epidural [facility] 09/05/22 Cheyanne 39 live - full term 8lbs 3oz Female epidural [place] Delivery Date: 05/15/18 Last Updated by: Alyssa Reed RN Sub chorionic hematoma, Induced Delivery Date: 09/05/22 Last Updated by: Alyssa Reed RN [place] GDM, Induced HPI 17 wk ob Details: GENARO HATHAWAY is a 29 year old who presents for routine OB visit. OB Visit TIGIST Calculator Estimated Delivery Date Method Current WG Current Estimate 09/21/25 LMP (Certain) 18w 0d Other Estimates 09/21/25 Ultrasound #1 18w 0d Expected Delivery Route/Plan Labor Preferences- CB/BF classes: [] labor support person: [] labor intervention preferences: [] pain management options preferred: [] cut cord/dad catch: [] : [] PP control planned: [] discussed possible routes of delivery and associated risks: [] special requests: [] Specific Issue/Plans Covid status: [] Flu vaccine: [] Tdap vaccine: [] Rhogam: [] LARC form signed: [] Problem list reviewed and updated with the most current plan of care details and appropriate orders placed. Relevant counseling for the gestational age provided. Continue routine care and follow up unless otherwise noted in visit notes/problem list details Initial Weight: 206 lb Date -???-???-???-???-???-??? -???-???-???-???-???-??? - EGA Weight BP Urine Prot -???-???-???-???-???-??? -???-???-???-???-???-??? - Glucose FHR FuHt Pres Dilation -???-???-???-???-???-??? -???-???-???-???-???-??? - Effaced St Visit Note 02/19/25 -???-???-???-???-???-??? -???-???-???-???-???-??? - 9w 3d 206 lb 8 oz (+8 oz) 124/83 -???-???-???-???-???-??? -???-???-???-???-???-??? - 172 -???-???-???-???-???-??? -???-???-???-???-???-??? - KW- CRL 2.66 and cons with dates. accepts NIPT 03/19/25 -???-???-???-???-???-??? -???-???-???-???-???-??? - 13w 3d 216 lb 5 oz (+10 lb 5 oz) 120/84 Negative -???-???-???-???-???-?? (more content not included)... Normal [facility] Platelet countOrdered By: David Hightower on 04-20-2025 Platelets (Bld) [#/Vol] 190 10*3/uL 150-450 [facility] RBC Auto (Bld) [#/Vol]Ordere d By: Johana Hightower on 04-20-2025 RBC (Bld) [#/Vol] 3.88 10*6/uL Low 4.2-5.4 [facility] Syphilis Antibodieson 2024 Syphilis Abs Non-Reactive Normal Nonreactive [facility] Comment on above: Performed By: #### L 509.4006, L509.8002, L100.0100, BTS, L3890.6102, L3890.6301, L501.9985, L3890.6006 #### [facility] [address] [place], [address] Type AND Screenon 04-20-2025 ABO and Rh group Nom (Bld) Blood group A Rh(D) positive Normal [facility] Comment on above: Order Comment: PN Performed By: #### L 509.4006, L509.8002, L100.0100, BTS, L3890.6102, L3890.6301, L501.9985, L3890.6006 #### [facility] [address] [place], [address] White blood cell (WBC) count Ordered By: Johana Hightower on 04-20-2025 WBC (Bld) [#/Vol] 8.2 10*3/uL 4.4-11.0 [facility] - Chemistry and C hemistry - challengeOrdered By: Silke Burnett on 03-19-2025 Glucose Ql (U) Negative [facility] - UrinalysisOrder ed By: Silke Burnett on 03-19-2025 Protein Ql (U) Negative [facility] Fire Controlman Office Visit Reporton 03-19-2025 Fire Controlman Office Visit Report [address], [address] [place] [address] OFFICE VISIT Date of Service: 03/19/25 MR#: [id number] Acct: [id number] Name: GENARO HATHAWAY Rep #: [id number] : 1995 Provider: Dr. Silke suarez MD Age/Sex: 29/F Location: [facility] Status: Signed Intake Vital Signs 01/28/25 14:53 02/19/25 14:41 03/19/25 15:09 Height 5 ft 7 in 5 ft 7 in 5 ft 7 in Weight: 216 lb 5 oz BMI 33.8 BP 120/84 H Intake Visit Reasons: 13wk OB Iuss Master Analyst Required: No Is patient in pain?: No Allergies Sulfa (Sulfonamide Antibiotics) Allergy (Intermediate, Verified 03/19/25 15:10) Swelling Medications ???Medication ???Instructions ???Recorded ???Confirmed ???Type docosahexaenoic acid 200 mg mg PO 01/28/25 03/19/25 History capsule ( DHA) Last Menstrual Period: 12/15/24 Zika: Zika virus screening: Negative : No PFSH PFSH Surgical History [place] teeth removed S/P D C (status post dilation and curettage) Family History Mother Breast cancer History of kidney cancer Osteoporosis Father Hypertension Sister Pre-eclampsia Grandmother Breast cancer Aunt Breast cancer Aunt Acute rheumatoid arthritis Social History adopted: No household members: spouse and children number of children: 2 current occupational status: employed 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 pets and animals: Yes (Gloves/mask) pets and animals: cat(s) history of recent travel: Yes ([place]) out of state: Yes out of country: No sexually active: Yes Smoking Status: Former smoker quit date: 07/23/24 second hand exposure: Yes alcohol intake: never substance use type: does not use well-balanced diet: about half the time caffeine: Yes Type: coffee Number of servings: 1 eating out: 1-3 times/week during the past year weight has: decreased > 10 lbs what type of physical activity do you participate in: walking frequency: 5-6 times per week duration: 15-30 minutes/day katya/yazidism: [employer] seatbelt use: always do you feel safe at home: Yes additional social history: : Ayush Berrios Work History 3 Elective abortions Hx Para 2 Spontaneous abortions Hx # Term Pregnancies Ectopic pregnancies Hx # Pregnancies Multiple births # of living children 2 Past Pregnancies Del. Date Name GA/Weeks Outcome Route Bth Weight Infant Gen Labor Lgth Anesthesia Del Locatn Provider FOB 05/15/18 Charlene 39 live - full term 7lbs 4oz Female epidural [facility] 09/05/22 Cheyanne 39 live - full term 8lbs 3oz Female epidural [place] Delivery Date: 05/15/18 Last Updated by: Alyssa Reed RN Sub chorionic hematoma, Induced Delivery Date: 09/05/22 Last Updated by: Alyssa Reed RN [place] GDM, Induced HPI 13wk OB Details: GENARO HATHAWAY is a 29 year old who presents for routine OB visit. OB Visit TIGIST Calculator Estimated Delivery Date Method Current WG Current Estimate 09/21/25 LMP (Certain) 13w 3d Other Estimates 09/21/25 Ultrasound #1 13w 3d Expected Delivery Route/Plan Labor Preferences- CB/BF classes: [] labor support person: [] labor intervention preferences: [] pain management options preferred: [] cut cord/dad catch: [] : [] PP control planned: [] discussed possible routes of delivery and associated risks: [] special requests: [] Specific Issue/Plans Covid status: [] Flu vaccine: [] Tdap vaccine: [] Rhogam: [] LARC form signed: [] Problem list reviewed and updated with the most current plan of care details and appropriate orders placed. Relevant counseling for the gestational age provided. Continue routine care and follow up unless otherwise noted in visit notes/problem list details Initial Weight: 206 lb Date -???-???-???-???-???-??? -???-???-???-???-???-??? - EGA Weight BP Urine Prot -???-???-???-???-???-??? -???-???-???-???-???-??? - Glucose FHR FuHt Pres Dilation -???-???-???-???-???-??? -???-???-???-???-???-??? - Effaced St Visit Note 02/19/25 -???-???-???-???-???-??? -???-???-???-???-???-??? - 9w 3d 206 lb 8 oz (+8 oz) 124/83 -???-???-???-???-???-??? -???-???-???-???-???-??? - 172 -???-???-???-???-???-??? -???-???-???-???-???-??? - KW- CRL 2.66 and cons with dates. accepts NIPT 03/19/25 -???-???-???-???-???-??? -???-???-???-???-???-??? - 13w 3d 216 lb 5 oz (+10 lb 5 oz) 120/84 Negative -???-???-???-???-???-??? -???-???-???-???-???-??? - Negat (more content not included)... Normal [facility] Chlamydia/GC LAKISHA aptimaon CHLAMY,NUC ACID Negative Normal Negative [facility] Comment on above: Performed By: #### M 100.5400, L7000.1800 #### [facility] [address] [place], [place], [id number] GC BY NUC ACID Negative Normal Negative [facility] Comment on above: Result Comment: Perf ormed at: =G - [facility] [address] [place] [id number] Distribution Manager: Mary Ellen Shaffer MD, Phone: [phone] Performed By: #### M 100.2200, L7000.1800 #### [facility] [address] [place], [address] Urine Cultureon 02-21-2025 [facility] Mixed Gram Positive Organisms [place] Count 11,000-25,000 MIXC Mixed contaminants. Submit a new specimen if indicated. Normal [facility] Comment on above: Performed By: #### M 100.2200, L7000.1800 #### [facility] [address] [place], [address] Urine cultureOrdered By: Yvan Hightower on 02-20-2025 Bacteria identified Cx Nom (U) Positive Abnormal [facility] Chlamydia trachomatis rRNA d etection by probe and target amplification methodOrdered By: Johana Hightower on 02-19-2025 C. trachomatis rRNA LAKISHA+probe Ql (Unsp spec) Negative Negative [facility] Neisseria gonorrhoeae nuclei c acid detection by amplified probe techniqueOrdered By: Johana Hightower on 02-19-2025 N. gonorrhoeae DNA LAKISHA+probe Ql (Unsp spec) Negative Negative [facility] Comment on above: Performed at: =[facility] [address] [id number] Director: Mary Ellen Shaffer MD, Phone: [phone] Fire Controlman Office Visit Reporton 02-19-2025 Fire Controlman Office Visit Report [facility] [address], [address] [place] [address] OFFICE VISIT Date of Service: 02/19/25 MR#: [id number] Acct: [id number] Name: GENARO HATHAWAY SUNNY Rep #: [id number] : 1995 Provider: ROSALINDA Chang ams Age/Sex: 29/F Location: [facility] Status: Signed Intake Vital Signs 01/28/25 14:53 02/19/25 14:41 Height 5 ft 7 in 5 ft 7 in Weight: 206 lb 8 oz BMI 32.3 BP 124/83 H Intake Visit Reasons: *NEW* NOB LMP 12/15, TIGIST 09/21 Chief Complaint: New OB Iuss Master Analyst Required: No Is patient in pain?: No Allergies Sulfa (Sulfonamide Antibiotics) Allergy (Intermediate, Verified 02/19/25 14:39) Swelling Medications ???Medication ???Instructions ???Recorded ???Confirmed ???Type docosahexaenoic acid 200 mg mg PO 01/28/25 02/19/25 History capsule ( DHA) Last Menstrual Period: 12/15/24 : Yes PFSH PFSH Surgical History [place] teeth removed S/P D C (status post dilation and curettage) Family History Mother Breast cancer History of kidney cancer Osteoporosis Father Hypertension Sister Pre-eclampsia Grandmother Breast cancer Aunt Breast cancer Aunt Acute rheumatoid arthritis Social History adopted: No household members: spouse and children number of children: 2 current occupational status: employed 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 pets and animals: Yes (Gloves/mask) pets and animals: cat(s) history of recent travel: Yes ([place]) out of state: Yes out of country: No sexually active: Yes Smoking Status: Former smoker quit date: 07/23/24 second hand exposure: Yes alcohol intake: never substance use type: does not use well-balanced diet: about half the time caffeine: Yes Type: coffee Number of servings: 1 eating out: 1-3 times/week during the past year weight has: decreased > 10 lbs what type of physical activity do you participate in: walking frequency: 5-6 times per week duration: 15-30 minutes/day katya/yazidism: Baptist seatbelt use: always do you feel safe at home: Yes additional social history: : [employer] History 3 Elective abortions Hx Para 2 Spontaneous abortions Hx # Term Pregnancies Ectopic pregnancies Hx # Pregnancies Multiple births # of living children 2 Past Pregnancies Del. Date Name GA/Weeks Outcome Route Bth Weight Infant Gen Labor Lgth Anesthesia Del Locatn Provider FOB 05/15/18 Charlene 39 live - full term 7lbs 4oz Female epidural [place] [facility] 09/05/22 Cheyanne 39 live - full term 8lbs 3oz Female epidural [place] [facility] Delivery Date: 05/15/18 Last Updated by: Alyssa Reed RN Sub chorionic hematoma, Induced Delivery Date: 09/05/22 Last Updated by: Alyssa Reed RN [place] GDM, Induced HPI *NEW* NOB LMP 12/15, TIGIST 09/21 Details: GENARO HATHAWAY is a 29 year old who presents for New OB visit. OB Visit TIGIST Calculator Estimated Delivery Date Method Current WG Current Estimate 09/21/25 LMP (Certain) 9w 3d Other Estimates 09/21/25 Ultrasound #1 9w 3d Estimated Due Date: 09/21/25 Expected Delivery Route/Plan Labor Preferences- CB/BF classes: [] labor support person: [] labor intervention preferences: [] pain management options preferred: [] cut cord/dad catch: [] : [] PP control planned: [] discussed possible routes of delivery and associated risks: [] special requests: [] Specific Issue/Plans Covid status: [] Flu vaccine: [] Tdap vaccine: [] Rhogam: [] LARC form signed: [] Problem list reviewed and updated with the most current plan of care details and appropriate orders placed. Relevant counseling for the gestational age provided. Continue routine care and follow up unless otherwise noted in visit notes/problem list details Initial Weight: 206 lb Date -???-???-???-???-???-??? -???-???-???-???-???-??? - EGA Weight BP Urine Prot -???-???-???-???-???-??? -???-???-???-???-???-??? - Glucose FHR FuHt Pres Dilation -???-???-???-???-???-??? -???-???-???-???-???-??? - Effaced St Visit Note 02/19/25 -???-???-???-???-???-??? -???-???-???-???-???-??? - 9w 3d 206 lb 8 oz (+8 oz) 124/83 -???-???-???-???-???-??? -???-???-???-???-???-??? - 172 -???-???-???-???-???-??? -???-???-???-???-???-??? - KW- CRL 2.66 and cons with dates. accepts NIPT Menstrual History Last Menstrual Period: 12/15/24 Reported LMP: definite Normal amount/duration: Yes Frequency in days: 26 On hormonal BC at conception: (more content not included)... Normal [facility] Urine cultureOrdered By: Yvan Hightower on 02-19-2025 Bacteria identified Cx Nom (U) Positive Abnormal [facility] - Chemistry and C hemistry - challengeOrdered By: Latisha Vega on 01-28-2025 HCG ( test) Ql (U) Positive [facility] Office Visit Reporton 2024 Office Visit Report [facility] [address] [place] [address] OFFICE VISIT Date of Service: 01/28/25 MR#: [id number] Acct: [id number] Patient: GENARO HATHAWAY SUNNY Rep #: [id number] : 1995 Provider: AMANDA leon Age/Sex: 29/F Location: [facility] Status: Signed Intake Vital Signs 01/28/25 14:53 Height 5 ft 7 in Weight: 205 lb BMI 32.1 BP 138/91 H Intake Visit Reasons: PNOB Confirm Iuss Master Analyst Required: No Is patient in pain?: No Allergies Sulfa (Sulfonamide Antibiotics) Allergy (Intermediate, Verified 01/28/25 14:56) Swelling Medications ???Medication ???Instructions ???Recorded ???Confirmed ???Type docosahexaenoic acid 200 mg mg PO 01/28/25 01/28/25 History capsule ( DHA) Is last menstrual period known: Yes Last menstrual period: 01/16/25 Post menopausal: No Patient : Yes Have you fallen in the past year?: No Nurse's Note: pt states she is anxious is today but isnt treated for it because she learned to deal with it. no other complaints or issues. test positive. Results POC Urine Office , Urine Positive Last Edit by Page Hancock on 01/28/25 15:02 Assessment and Plan Assessment and Plan (1) Amenorrhea: Orders: Orders POC Urine Today Z34.90 - Encounter for supervision of normal , unspecified, unspecified trimester Plan Confirmed . RTO NOB appt Clinical Quality Measures Falls Risk Screening/Assistive Devices Have you fallen in the past year?: No 01/28/25 1517 Date Latisha Vega NP FINAL INSPECTOR TRUCK TRAILER-C Cosigner Signature: Date (if applicable) CC: Normal [facility] GASTROINTESTINAL PATHOGEN LISANDRA MERA, REAL TIME PCRon 12-06-2024 [employer] Not detected Normal NOT DETECTED [facility] Comment on above: Order Comment: FASTI NG:YES FASTING: YES Performed By: #### 3 0707 #### [facility] [address], [address] [place] [address] Director Compensation: Amish Willis MD NOROVIRUS GI/GII Not detected Normal NOT DETECTED [facility] Comment on above: Order Comment: FASTI NG:YES FASTING: YES Performed By: #### 3 9773 #### [facility] [address], [address] [place], [place] [id number] Director Compensation: Amish Willis MD ROTAVIRUS A Not detected Normal NOT DETECTED [facility] Comment on above: Order Comment: FASTI NG:YES FASTING: YES Result Comment: Orga nisms included in the Campylobacter group include C. coli, C. jejuni, and C. aretha. Organisms included in the Shigella species include S. dysenteriae, S. boydii, S. sonnei, and S. flexneri. Organisms included in the Vibrio group include V. cholerae and V. parahaemolyticus. Performed By: #### 3 8470 #### [facility] [address], [address] [place] [address] Director Compensation: Amish Willis MD SALMONELLA SPECIES Not detected Normal NOT DETECTED [facility] Comment on above: Order Comment: FASTI NG:YES FASTING: YES Performed By: #### 3 8470 #### [facility] [place] [address] Director Compensation: Amish Willis MD SHIGA TOXIN 1 Not detected Normal NOT DETECTED [facility] Comment on above: Order Comment: FASTI NG:YES FASTING: YES Performed By: #### 3 4370 #### [facility] of [place] [address] Director Compensation: Amish Willis MD SHIGA TOXIN 2 Not detected Normal NOT DETECTED [facility] Comment on above: Order Comment: FASTI NG:YES FASTING: YES Performed By: #### 3 5370 #### [facility] [place] [address] Director Compensation: Amish Willis MD SHIGELLA SPECIES Not detected Normal NOT DETECTED [facility] Comment on above: Order Comment: FASTI NG:YES FASTING: YES Performed By: #### 3 8470 #### [facility] of [place] [address] Director Compensation: Amish Willis MD VIBRIO GROUP Not detected Normal NOT DETECTED [facility] Comment on above: Order Comment: FASTI NG:YES FASTING: YES Performed By: #### 3 5470 #### [facility] [address], [address] [place] [address] Director Compensation: Amish Willis MD YERSINIA ENTEROCOLITICA Not detected Normal NOT DETECTED [facility] Comment on above: Order Comment: FASTI NG:YES FASTING: YES Performed By: #### 3 8470 #### [facility] [address], [address] [place] [address] Director Compensation: Amish Willis MD Cervicalon 11-06-2024 Cytology Cervical or vaginal smear or scraping study Pathology report.total SEE COMMENT Gynecologic Cytology Case: [id number] Authorizing Provider: ELI Penaloza, Collected: 11/06/2024 1549 WANDA, LINDA Ordering Location: [facility] Received: 11/06/2024 1549 First Screen: CHET Gomes Rescreen: CHET Mejía Specimen: ThinPrep Liquid-Based Pap-Imaging System Screen, CERVIX, SCREENING Cytology study comment SEE COMMENT A. THINPREP PAP CERVIX, SCREENING - Specimen Adequacy Satisfactory for evaluation; endocervical/transformat ion zone component is present General Categorization Negative for intraepithelial lesion or malignancy. Descriptive Interpretation Negative for intraepithelial lesion or malignancy at 1101 EDT Laboratory comment SEE COMMENT Slide(s) initially screened by CHET Gomes at [facility] [id number] [place] [phone] QC review performed by CHET Mejía at [id number] [facility] [id number] By the signature on this report, the individual or group listed as making the Final Interpretation/Diagnosis certifies that they have reviewed this case. This specimen has been analyzed by the VoloAgri GroupPrep Imaging System ([employer] an automated imaging and review system, which assists the laboratory in evaluating cells on ThinPrep Pap tests. Following automated imaging, selected shell from every slide were reviewed by a socket welder helper and/or pathologist. Cervical cytology is a screening [...] QUESTION Yes Date last menstrual period 10/21/2024 Normal [facility] HPV 16 and 18 and 31+33+35+3 9+45+51+52+56+58+59+66+68 DNA Pnl (Cvx)on 11-06-2024 HPV 16 DNA LAKISHA+probe Ql (Unsp spec) Negative Normal Negative [facility] Comment on above: Order Comment: Testi ng for high-risk (HR) types of human papilloma virus (HPV) [...] verified by the [facility] Diagnostic Laboratory at [facility]. The lab is certified under the Clinical Laboratory Amendments of 1988 (CLIA 88) as qualified to perform high complexity clinical laboratory testing. PERFORMING LAB LOCATIONS [facility]: [address] [place] [address] Performed By: #### 7 1432-9 #### HAILEY Pacheco ([id number]) [facility] ([facility]) [address] [place] [address] HPV 18 DNA LAKISHA+probe Ql (Unsp spec) Negative Normal Negative [facility] Comment on above: Order Comment: Testi ng for high-risk (HR) types of human papilloma virus (HPV) [...] verified by the [facility] Diagnostic Laboratory at [facility]. The lab is certified under the Clinical Laboratory Amendments of 1988 (CLIA 88) as qualified to perform high complexity clinical laboratory testing. PERFORMING LAB LOCATIONS [facility]: [address] [place] [address] Performed By: #### 7 1432-9 #### HAILEY Pacheco ([id number]) [facility] ([facility]) [address] [place] [address] HPV 31+33+35+39+45+51+52+5 6+58+59+66+68 DNA LAKISHA+probe Ql (Genital specimen) Negative Normal Negative [facility] Comment on above: Order Comment: Testi ng for high-risk (HR) types of human papilloma virus (HPV) [...] verified by the [facility] Diagnostic Laboratory at [facility]. The lab is certified under the Clinical Laboratory Amendments of 1988 (CLIA 88) as qualified to perform high complexity clinical laboratory testing. PERFORMING LAB LOCATIONS [facility]: [address] [place] [address] Performed By: #### 7 1432-9 #### HAILEY Pacheco ([id number]) [facility] ([facility]) [address] [place] [address] Human papilloma virus high-risk genotypes panel Negative Normal Negative [facility] Comment on above: Order Comment: Testi ng for high-risk (HR) types of human papilloma virus (HPV) [...] verified by the [facility] Diagnostic Laboratory at [facility]. The lab is certified under the Clinical Laboratory Amendments of 1988 (CLIA 88) as qualified to perform high complexity clinical laboratory testing. PERFORMING LAB LOCATIONS [facility]: [address] [place] [address] Performed By: #### 7 1432-9 #### HAILEY Pacheco ([id number]) [facility] ([facility]) [address] [place] [address] CBC (INCLUDES DIFF/PLT)on ABSOLUTE BAND NEUTROPHILS Normal [facility] Comment on above: Performed By: #### 7 600, 49214, 6399, 34261 #### [facility] [address], [address] [place], [place] [id number] Director Compensation: Amish Willis MD ABSOLUTE BASOPHILS Normal [facility] Comment on above: Performed By: #### 7 600, 38614, 6399, 63468 #### [facility] [address], [address] [place] [address] Director Compensation: Amish Willis MD ABSOLUTE BLASTS Normal [facility] Comment on above: Performed By: #### 7 600, 24643, 6399, 51538 #### [facility] of [address], [address] [place] [address] Director Compensation: Amish Willis MD ABSOLUTE EOSINOPHILS Normal [facility] Comment on above: Performed By: #### 7 600, 07299, 6399, 72832 #### [facility] [place] [address] [address] , [address] [place], [place] [id number] Director Compensation: Amish Willis MD ABSOLUTE LYMPHOCYTES Normal [facility] Comment on above: Performed By: #### 7 600, 08852, 6399, 33618 #### [facility] [address], [address] [place], [place] [id number] Director Compensation: Amish Willis MD ABSOLUTE METAMYELOCYTES Normal [facility] Comment on above: Performed By: #### 7 600, 26081, 6399, 78992 #### [facility] of [place] [address] Director Compensation: Amish Willis MD ABSOLUTE MONOCYTES Normal [facility] Comment on above: Performed By: #### 7 600, 92764, 6399, 99563 #### [facility] of [place] [address] Director Compensation: Amish Willis MD ABSOLUTE MYELOCYTES Normal [facility] Comment on above: Performed By: #### 7 600, 23269, 6399, 47272 #### [facility] of [place] [address] Director Compensation: Amish Willis MD ABSOLUTE NEUTROPHILS Normal [facility] Comment on above: Performed By: #### 7 600, 34584, 6399, 56571 #### [facility] [place] [address] Director Compensation: Amish Willis MD ABSOLUTE NUCLEATED RBC Normal [facility] Comment on above: Performed By: #### 7 600, 98374, 6399, 53581 #### [facility] [place] [address] Director Compensation: Amish Willis MD ABSOLUTE PROMYELOCYTES Normal [facility] Comment on above: Performed By: #### 7 600, 06475, 6399, 56606 #### [facility] [place] [address] Director Compensation: Amish Willis MD BAND NEUTROPHILS Normal [facility] Comment on above: Performed By: #### 7 600, 31741, 6399, 19709 #### [facility] of [place] [address] Director Compensation: Amish Willis MD BASOPHILS Normal [facility] Comment on above: Performed By: #### 7 600, 57642, 6399, 79816 #### [facility] of [facility] [address], [address] [place] [phone] Director Compensation: Amish Willis MD [facility] Normal [facility] Comment on above: Performed By: #### 7 600, 83951, 6399, 02419 #### [facility] [address], [address] [place] [phone] Director Compensation: Amish Willis MD COMMENT(S) Normal [facility] Comment on above: Performed By: #### 7 600, 33009, 6399, 38196 #### [facility] [address], [address] [place] [phone] Director Compensation: Amish Willis MD [facility] Normal [facility] Comment on above: Performed By: #### 7 600, 14617, 6399, 55480 #### [facility] [address], [address] [place] [phone] Director Compensation: Amish Willis MD [facility] Normal [facility] Comment on above: Performed By: #### 7 600, 60433, 6399, 61564 #### [facility] [address], [address] [place] [phone] Director Compensation: Amish Willis MD [facility] Normal [facility] Comment on above: Performed By: #### 7 600, 74553, 6399, 95129 #### [facility] [address], [address] [place] [phone] Director Compensation: Amish Willis MD [facility] Normal [facility] Comment on above: Performed By: #### 7 600, 67727, 6399, 31151 #### [facility] [address], [address] [place] [phone] Director Compensation: Amish Willis MD [facility] Normal [facility] Comment on above: Performed By: #### 7 600, 44103, 6399, 59573 #### [facility] [address], [address] [place] [phone] Director Compensation: Amish Willis MD [facility] Normal [facility] Comment on above: Performed By: #### 7 600, 53124, 6399, 34751 #### [facility] [address], [address] [place] [address] Director Compensation: Amish Willis MD MCV Normal [facility] Comment on above: Performed By: #### 7 600, 51149, 6399, 45701 #### [facility] [address], [address] [place] [address] Director Compensation: Amish Willis MD METAMYELOCYTES Normal [facility] Comment on above: Performed By: #### 7 600, 79802, 6399, 64963 #### [facility] of [place] [address], [address] [place] [address] Director Compensation: Amish Willis MD MONOCYTES Normal [facility] Comment on above: Performed By: #### 7 600, 15199, 6399, 76430 #### [facility] [address], [address] [place] [address] Director Compensation: Amish Willis MD MPV Normal [facility] Comment on above: Performed By: #### 7 600, 26337, 6399, 52802 #### [facility] [address], [address] [place] [address] Director Compensation: Amish Willis MD MYELOCYTES Normal [facility] Comment on above: Performed By: #### 7 600, 76316, 6399, 20594 #### [facility] [address], [address] [place] [address] Director Compensation: Amish Willis MD NEUTROPHILS Normal [facility] Comment on above: Performed By: #### 7 600, 86388, 6399, 76750 #### [facility] [address], [address] [place] [address] Director Compensation: Amish Willis MD NUCLEATED RBC Normal [facility] Comment on above: Performed By: #### 7 600, 76870, 6399, 06790 #### [facility] [address], [address] [place] [address] Director Compensation: Amish Willis MD PLATELET COUNT Normal [facility] Comment on above: Performed By: #### 7 600, 05838, 6399, 77212 #### [facility] of [place] [address], [address] [place] [address] Director Compensation: Amish Willis MD PROMYELOCYTES Normal [facility] Comment on above: Performed By: #### 7 600, 11423, 6399, 67186 #### [facility] of [place] [address], [address] [place] [address] Director Compensation: Amish Willis MD RDW Normal [facility] Comment on above: Performed By: #### 7 600, 77911, 6399, 33408 #### [facility] of [place] [address], [address] [place] [address] Director Compensation: Amish Willis MD REACTIVE LYMPHOCYTES [facility] Comment on above: Performed By: #### 7 600, 76266, 6399, 09372 #### [facility] [place] [address], [address] [place] [address] Director Compensation: Amish Willis MD RED BLOOD CELL COUNT [facility] Comment on above: Performed By: #### 7 600, 23228, 6399, 56433 #### [facility] [place] [address], [address] [place], [place] [id number] Director Compensation: Amish Willis MD WHITE BLOOD CELL COUNT Normal [facility] Comment on above: Performed By: #### 7 600, 45867, 6399, 27353 #### [facility] of [place] [address], [address] [place], [place] [phone] Director Compensation: Amish Willis MD COMPREHENSIVE METABOLIC PANE L W/ANION GAPon 10-10-2024 Albumin [Mass/Vol] 4.6 g/dL Normal 3.6-5.1 [facility] Comment on above: Performed By: #### 7 600, 86732, 6399, 26429 #### [facility] of [place] [address], [address] [place] [address] Director Compensation: Amish Willis MD ALP [Catalytic activity/Vol] 49 U/L Normal 31-125 [facility] Comment on above: Performed By: #### 7 600, 90945, 78, 69984 #### [facility] of [address], [address] [place] [address] Director Compensation: Amish Willis MD ALT [Catalytic activity/Vol] 13 U/L Normal 6-29 [facility] Comment on above: Performed By: #### 7 600, 07733, 01, 83523 #### [facility] of [address], [address] [place] [address] Director Compensation: Amish Willis MD AST [Catalytic activity/Vol] 13 U/L Normal 10-30 [facility] Comment on above: Performed By: #### 7 600, 32295, 53, 91670 #### [facility] of [address], [address] [place] [address] Director Compensation: Amish Willis MD Bilirubin [Mass/Vol] 0.4 mg/dL Normal 0.2-1.2 [facility] Comment on above: Performed By: #### 7 600, 66610, 48, 34329 #### [facility] of [place] [address] Director Compensation: Amish Willis MD Calcium [Mass/Vol] 9.3 mg/dL Normal 8.6-10.2 [facility] Comment on above: Performed By: #### 7 600, 69367, 38, 69818 #### [facility] of [address], [address] [place] [address] Director Compensation: Amish Willis MD Chloride [Moles/Vol] 105 mmol/L Normal 98-110 [facility] Comment on above: Performed By: #### 7 600, 58971, 60, 34415 #### [facility] [place] [address] Director Compensation: Amish Willis MD CO2 [Moles/Vol] 26 mmol/L Normal 20-32 [facility] Comment on above: Performed By: #### 7 600, 39738, 85, 50705 #### [facility] of [address], [address] [place] [address] Director Compensation: Amish Willis MD Creatinine [Mass/Vol] 0.94 mg/dL Normal 0.50-0.97 [facility] st [facility] Comment on above: Performed By: #### 7 600, 22310, 63, 99473 #### [facility] of [address], [address] [place] [address] Director Compensation: Amish Willis MD ELECTROLYTE BALANCE 7 mmol/L (calc) Normal 7-17 [facility] Comment on above: Performed By: #### 7 600, 88950, 81, 36118 #### [facility] of [address], [address] [place] [address] Director Compensation: Amish Willis MD GFR/1.73 sq M.predicted among non-blacks MDRD (S/P/Bld) [Vol rate/Area] 84 mL/min/{1.73_m2} Normal > OR = 60 [facility] Comment on above: Performed By: #### 7 600, 70955, 09, 90433 #### [facility] [address], [address] [place] [address] Director Compensation: Amish Willis MD Glucose [Mass/Vol] 92 mg/dL Normal 65-99 [facility] Comment on above: Result Comment: Fasting reference interval Performed By: #### 7 600, 52630, 28, 71750 #### [facility] of [address], [address] [place] [address] Director Compensation: Amish Willis MD Potassium [Moles/Vol] 4.7 mmol/L Normal 3.5-5.3 [facility] st [facility] Comment on above: Performed By: #### 7 600, 55761, 19, 17458 #### [facility] of [address], [address] [place] [address] Director Compensation: Amish Willis MD Protein [Mass/Vol] 7.0 g/dL Normal 6.1-8.1 [facility] Comment on above: Performed By: #### 7 600, 23008, 6399, 15948 #### [facility] [place] [address] Director Compensation: Amish Willis MD Sodium [Moles/Vol] 138 mmol/L Normal 135-146 [facility] Comment on above: Performed By: #### 7 600, 80444, 6399, 03136 #### [facility] [place] [address] Director Compensation: Amish Willis MD Urea nitrogen [Mass/Vol] 18 mg/dL Normal 7-25 [facility] Comment on above: Performed By: #### 7 600, 96772, 5699, 52122 #### [facility] [place] [address] Director Compensation: Amish Willis MD LIPID PANEL, [facility] 03-2 Cholesterol [Mass/Vol] 153 mg/dL Normal <200 [facility] Comment on above: Order Comment: FASTI NG:YES FASTING: YES Performed By: #### 7 600, 70073, 3099, 00375 #### [facility] [place] [address] Director Compensation: Amish Willis MD Cholesterol in HDL [Mass/Vol] 49 mg/dL Low > OR = 50 [facility] Comment on above: Order Comment: FASTI NG:YES FASTING: YES Performed By: #### 7 600, 96961, 6399, 85303 #### [facility] [place] [address] Director Compensation: Amish Willis MD Cholesterol in LDL [Mass/Vol] 87 mg/dL Normal [facility] Comment on above: Order Comment: FASTI NG:YES FASTING: YES Result Comment: Refe rence range: <100 Desirable range <100 mg/dL for primary prevention; <70 mg/dL for patients with CHD or diabetic patients with > or = 2 CHD risk factors. LDL-C is now calculated using the Rosie calculation, which is a validated novel method providing better accuracy than the Friedewald equation in the estimation of LDL-C. Jordi MORALES et al. MAC. 2013;310(19): 9337-6338 (http://education.Anyvite.WorldMate/faq/PEG614) Performed By: #### 7 600, 49693, 2540, 47457 #### [facility] [address], [address] [place] [address] Director Compensation: Amish Willis MD Cholesterol.total/Chol esterol in HDL [Mass ratio] 3.1 {ratio} Normal <5.0 [facility] Comment on above: Order Comment: FASTI NG:YES FASTING: YES Performed By: #### 7 600, 04587, 9732, 69909 #### [facility] [place] [address] Director Compensation: Amish Willis MD NON HDL CHOLESTEROL 104 mg/dL (calc) Normal <130 [facility] Comment on above: Order Comment: FASTI NG:YES FASTING: YES Result Comment: For patients with diabetes plus 1 major ASCVD risk factor, treating to a non-HDL-C goal of <100 mg/dL (LDL-C of <70 mg/dL) is considered a therapeutic option. Performed By: #### 7 600, 23873, 7002, 84302 #### [facility] [place] [address] Director Compensation: Amish Willis MD Triglyceride [Mass/Vol] 80 mg/dL Normal <150 [facility] Comment on above: Order Comment: FASTI NG:YES FASTING: YES Performed By: #### 7 600, 03753, 3786, 20546 #### [facility] [place] [address] Director Compensation: Amish Willis MD TSH W/REFLEX TO FT4on 2024 TSH W/REFLEX TO FT4 3.58 mIU/L Normal [facility] Comment on above: Result Comment: Refe rence Range > or = 20 Years 0.40-4.50 Ranges First trimester 0.26-2.66 Second trimester 0.55-2.73 Third trimester 0.43-2.91 Performed By: #### 7 600, 82347, 6399, 90318 #### [facility] [address], [address] [place] [address] Director Compensation: Amish Willis MD BRCA 1/2 SEQUENCING AND DEL/ DUPon 10-09-2024 COMMENTS - MP RESULT TYPE Report has been scanned to the patient's chart. [facility] Comment on above: Order Comment: This order contains result documents that were not sent. The result might be incomplete. Performed By: #### B [id number] #### [email or web address] ([id number]) [address] [place] [address] SCAN RESULT See Scanned Result Normal [facility] Comment on above: Order Comment: This order contains result documents that were not sent. The result might be incomplete. Performed By: #### B [id number] #### [employer] ([id number]) [address] [place] [address] Nursing Communicationon Prepped [facility] Nursing CommunicationOrdered By: Ilene Zarate on 07-31-2023 [facility] ORTHO NURSE - Visiton 10-02-2022 ORTHO NURSE - Visit Chief Complaint Pt here for Post Visit (4 WEEK). Patient had a VAGINAL delivery of a FEMALE on 09/05/22 at ( 39 weeks), weighed 8# 8oz. Patient is currently BOTTLE feeding STILL PUMPING. Patient would like to discuss control options. Pt IS NOT HAVING ANY post depression. Pt has NOT resumed sexual activity. Pt has no questions or concerns at this time. History of Present IllnessPatient presents for checkup. She is breast-feeding and wishes to discuss forms of contraception. She voices no complaints and is doing well. Review of Systems Review of Systems: Constitutional: No fever or chills Respiratory: No shortness of breath, or cough Cardiovascular: No chest pain or syncope Breasts: No breast pain, no masses, no nipple discharge Gastrointestinal: No nausea, vomiting, or diarrhea, no abdominal pain Genitourinary: No dysuria or frequency Gynecology: Negative except as noted in history of present illness All other: All other systems reviewed and negative for complaint Active Problems Abnormal uterine bleeding (AUB) (626.9) (N93.9) Bacterial vaginosis (616.10,041.9) (N76.0,B96.89) Female pelvic pain (625.9) (R10.2) Gastroenteritis (558.9) (K52.9) Infertility Infertility counseling (V26.49) (Z31.69) Menorrhagia with regular cycle (626.2) (N92.0) Nausea and vomiting in (643.90) (O21.9) Negative test (V72.41) (Z32.02) Pelvic pain in female (625.9) (R10.2) Screen for STD (sexually transmitted disease) (V74.5) (Z11.3) Screening for breast cancer (V76.10) (Z12.39) Screening for cervical cancer (V76.2) (Z12.4) Women's annual routine gynecological examination (V72.31) (Z01.419) Past Medical History History of Menstruation Onset age 10 years History of Normal vaginal delivery (650) (O80) 09/05/22 39 WEEKS FEMALE 8LBS 8OZ 04/25/2018_40weeks 2days_Female_7# 4oz History of Pap test, as part of routine gynecological examination (V76.2) (Z01.419) 03/03/2022; NIL 09/10/2017: Negative Surgical History History of Dilation and curettage January, History of Hysteroscopy 02-10-2021 Family History Family history of malignant neoplasm of breast (V16.3) (Z80.3) Family history of osteoporosis (V17.81) (Z82.62) Family history of renal cell carcinoma (V16.51) (Z80.51) Family history of hypertension (V17.49) (Z82.49) Family history of malignant neoplasm of breast (V16.3) (Z80.3) Family history of malignant neoplasm of breast (V16.3) (Z80.3) Social History No alcohol use No illicit drug use Non-smoker (V49.89) (Z78.9) Sexually active Allergies Sulfa Drugs Recorded By: Aida Agudelo; 11/09/2020 11:46:14 AM Current Meds Prochlorperazine Maleate 10 MG Oral Tablet; TAKE 1 TABLET EVERY 6 HOURS NEEDED FOR NAUSEA; Therapy: [id number] to (Evaluate:03Jun2023) Requested for: 39Glk4038; Last Rx:[id number] Ordered Rx By: Massiel Yin; Dispense: 30 Days ; #:60 Tablet; Refill: 10;For: Gastroenteritis; WILL = N; [facility]; Last Updated By: Fast Orientation; 07/08/2022 9:46:36 PM Ondansetron HCl - 4 MG Oral Tablet; TAKE 1 TABLET Every 6 hours PRN nausea; Therapy: 95Ohl0780 to (Evaluate:86Vfy3893) Requested for: 14Dyv6265; Last Rx:[id number] Ordered Rx By: Pérez العلي; Dispense: 8 Days ; #:30 Tablet; Refill: 2;For: Nausea and vomiting in ; WILL = N; [facility]; Last Updated By: Fast Orientation; 02/23/2022 3:58:02 PM TABS; Therapy: (Recorded:09Nov2020) to Recorded Dispense: 0 Days ; #: Sufficient; Refill: 0; WILL = N; Record; Last Updated By: Aida Agudelo; 11/09/2020 11:46:14 AM Vitals Vital Signs Recorded: 02Oct2022 02:47PM Pvhscmsl720 Ottqyhepd38 Height5 ft 7 in Vahyvg240.42 kg BMI Omscjafkam98.71 kg/m2 BSA Calculated2.14 Physical Exam PHYSICAL EXAMINATION: Well-developed, well nourished, in no acute distress, alert and oriented x three, is pleasant and cooperative. HEENT: Clear. Pupils equal, round and reactive to light and accommodation. Extraocular muscles are intact. Oral mucosa pink without exudate. NECK: No lymphadenopathy, no thyromegaly. LUNGS: Clear bilaterally. HEART: Regular rate and rhythm without murmurs. ABDOMEN: Normoactive bowel sounds, soft and nontender, no guarding or rebound tenderness, no CVA tenderness. EXTREMITIES: No clubbing, cyanosis or edema. NEUROLOGIC: Cranial nerves II-XII grossly intact. : Normal external female genitalia, normal vulva, normal vagina. Normal urethral meatus, urethra and bladder. Pap smear performed today. Diagnoses/Problems follow-up (V24.2) (Z39.2) Contraception management (V25.9) (Z30.9) Orders Contraception management Start: Fariba 0.35 MG Oral Tablet; TAKE 1 TABLET DAILY Rx By: Isha Osei; Dispense: 28 Days ; #:1 X 28 Tablet Pack; Refill: 6;For: Contraception management; WILL = N; Sent To: [facility] Provider Im (more content not included)... Normal [employer] Daily Progress Note - OB-Pos t-partumon 09-06-2022 Daily Progress Note - AB-Spwv-dqwlnh Current Stage: Stage: Post- Subjective Data: Post : Ambulate: Yes Flatus: Yes Tolerate Diet: Yes : PPD #1 Resting well. Breast-feeding. Objective Information: Objective Information: T PRBPMAPSpO2 [id number] % Date/Time09/06 4: 4: 4: 4: 4: 4:33 Range(36.2C - 36.8C ) (66 - 132 ) (12 - 16 ) (107 - 165 )/ (51 - 98 ) (74 - 110 ) (95% - 99% ) Pain reported at 09/06 4:33: 0 = None Physical Exam: Constitutional: alert, oriented Obstetric: Abdomen: Soft and nontender Respiratory/Thorax: normal respiratory effort, lungs clear, no wheezes or rhonchi Cardiovascular: S1 S2 RRR, no murmurs Extremities: no calf tenderness, reflexes 2+ Assessment and Plan: Additional Dx: Single live : Entered Date: 05-Sep-2022 00:19 Normal spontaneous vaginal delivery: Entered Date: 05-Sep-2022 00:19 39 weeks gestation of : Entered Date: 01-Sep-2022 15:44 Assessment: PPD #1 Home today. Will discuss contraception at her checkup. Electronic Signatures: Isha Osei) (Signed 06-Sep-2022 07:16) Authored: Current Stage, Subjective Data, Objective Data, Assessment and Plan, Note Completion Last Updated: 06-Sep-2022 07:16 by Isha Osei) [facility] Discharge Planning Wien9ye 0 09-06-2022 Discharge Planning Note2 Discharge Planning: Discharge Barriersnone Planned Dispositionhome PCP/Next Provider Follow Up Scheduledyes (Adult Med/Surg) Is the Patient Being Discharged on an Opioidno [employer] of Choice Explainedyes Anticipated Discharge [id number] Assessment: Discharge Planning Assessment [id number]-Jpc-8592 Lives Withdependent child(ning); spouse(1) Living Arrangementshouse(1) [place] (1) Resource/Environmental Concernsnone(1) Anticipated Transition [place](1) Services Anticipated at Transitionnon(1) Nursing Checklist: Lines/Cathetersremoved/a ppropriate for next level of care Discharge Med Rec Reconciled with eMARosalind Patient has Prescriptionsno prescriptions needed Transportation for Discharge Confirmedyes Follow up Reviewedyes DME equipment orderedno, need prescription Discharge Instructions Reviewed WithPatient, Patient and Family Member Discharge Instructions Outcomeverbalize recall/understanding Discharge Documentation: Discharge/Transfer Date/Srua90-Kof-8843 10:17 Discharged Accompanied Byspouse Transportation Methodprivate car Discharge Modeambulatory Code StatusCode Status order at time of discharge: Full Code Discharge Order Writtenyes [place] DNR Form Sent with Patient and/or Familyno Final Disposition.Home Electronic Signatures: Altagracia Lee (MARKELL) (Signed 06-Sep-2022 10:17) Authored: Discharge Planning, Assessment, Nursing Checklist, Discharge Documentation Last Updated: 06-Sep-2022 10:17 by Altagracia Lee (MARKELL) References: 1. Data Referenced From Patient Profile - OB v3 04-Sep-2022 07:08 [facility] Discharge Xtekmpz4ak -15-2 023 Discharge Profile2 Discharge Orders: Anticipated Discharge Date: Anticipated Discharge Jatt62-Rbl-4415 Problem List: Additional Dx: Single live : Catalog Name: Single live Normal spontaneous vaginal delivery: Catalog Name: Encounter for full-term uncomplicated delivery 39 weeks gestation of : Catalog Name: 39 weeks gestation of Hospital Providers: Provider RoleProvider Name AttendingIsha Osei DNAR: Code Status at Discharge: Full Code : Activity: Return to normal activity as tolerated. Patient Instructions: Pelvic Rest: DO NOT place anything in vagina until cleared by OB Provider. Diet: Regular. Follow-Up - OB Provider: Physician/Dept/Ramana Osei MD Call to Schedule in4 weeks [facility] / NICU: Patient / Family Instructions - Feeding: - FEEDING. Hospital Course (Home Care/Gold Form): Hospital Course: Hospital Course: include significant abnormal lab values Patient progressed through labor well and had a normal spontaneous vaginal delivery for viable female infant on September 05, 2022. Patient is breast-feeding and was discharged on day 1. Provider FINAL REVIEW of Orders: Final Review: Final Review of Medication Reconciliation and Orders Completedby Physician Reviewing Chayo Osei MD at 06-Sep-2022 07:17:47 Other Clinician Instructions: Other Instructions: Other Clinician InstructionsAny woman can have complications after the of a baby including a blood clot, a heart problem, hypertensive disorder/eclampsia, depression, hemorrhage, or infection. Notify all providers of your delivery date up to one year after .* Call 911 or go to nearest emergency room right away if you have: PAIN or pressure in chest; OBSTRUCTED breathing or shortness of breath; SEIZURES; THOUGHTS of hurting yourself or your baby; heart palpitations/racing; change in alertness/confusion. Call your provider if you have: BLEEDING, soaking through a pad/hour, or blood clots the size of an egg or bigger; INCISION (episiotomy stitches or site) that is not healing (increased redness, pain, drainage/pus, or separation); RED or swollen leg/calf that is painful or warm to touch, especially in one leg more than the other; TEMPERATURE of 100.4 F or higher or chills; HEADACHE that does not get better with medicine, rest or hydration, or bad headache with vision changes like spots or flashing lights; increased swelling of face, hands or legs; severe cramps or upper right belly pain; red or swollen breast that is painful or warm to touch; an unusual, foul odor from your vaginal discharge; pain, burning, or difficulty during urination; severe constipation (more than 5 days); feelings of depression (such as depressed mood, loss of interest in enjoyable things, unable to care for yourself, trouble sleeping, lack of appetite, or feeling worthless). If you cant reach your provider or symptoms worsen, call 911 or go to nearest emergency room. *Information [facility] from [facility]: [facility] Your Life: Get Care for These POST- Warning Signs On Behalf on the [facility] Maternity Staff, Congratulations on your . It was our pleasure to take care of you and your infant during your stay. We hope during this stay that we have exceeded all of your expectations. We will be calling you in a few days to check up on you and your infant. Please allow us to speak with you and please ask questions or let us know if you have any concerns. Again, Congratulations! Warmest Regards, Altagracia Peñaloza Electronic Signatures: Isha Osei) (Signed 06-Sep-2022 07:17) Authored: Discharge Orders, , Hospital Course (Home Care/Gold Form), Provider FINAL REVIEW of Orders, Gold Form - [employer] History Professor Summary Altagracia Lee (MARKELL) (Signed 06-Sep-2022 09:02) Authored: [facility] / NICU, Other Clinician Instructions Last Updated: 06-Sep-2022 09:02 by Altagracia Lee) [facility] Order Reconciliationon 09-06 Order Reconciliation Page 1 Discharge Reconciliation Document Reconciliation Type: Discharge requested on behalf of Isha Osei (Physician) done by Isha Osei) Discharge - Reconciliation: 06-Sep-2022 07:18 by: Isha Osei) Home Medications EnteredHOME MEDICATIONS AT DISCHARGE DateReconciliation Comment/ Additional Information 1 oral capsule 22-Feb-2022 20:43 1 oral capsule 22-Feb-2022 20:43 1 oral capsule is continued as 1 oral capsule Current OrdersDateHOME MEDICATIONS AT DISCHARGE DateReconciliation Comment/ Additional Information Acetaminophen Tablet (TYLENOL)DOSE = 975 mg Oral Every 6 HoursClinician Notes: Give with Ibuprofen. 05-Sep-2022 00:16 Acetaminophen is not required Benzocaine 20% - Menthol 0.5% Topical Bowers (DERMOPLAST)DOSE = 1 application(s) Topical 4 Times a Day, PRN DiscomfortApply to Perianal Area 05-Sep-2022 00:16 Benzocaine 20% - Menthol 0.5% Topical is not required Bisacodyl Rectal Suppository (DULCOLAX)DOSE = 10 mg Rectal Daily, PRN Severe constipation 05-Sep-2022 00:16 Bisacodyl Rectal is not required Carboprost IntraMuscular (HEMABATE)DOSE = 250 microgram(s) IntraMuscular Once, PRN post bleeding in non-asthmatic patientClinician Notes: Consult provider prior to administration. 05-Sep-2022 00:16 Carboprost IntraMuscular is not required diphenhydrAMINE Injectable (BENADRYL)DOSE = 25 mg IntraVenous Push Every 4 Hours, PRN Itching 04-Sep-2022 22:13 diphenhydrAMINE Injectable is not required Enoxaparin SubCutaneous (LOVENOX)DOSE = 60 mg SubCutaneous Every 24 HoursClinician Notes: Wait 4 hours after neuraxial catheter removal AND 24 hours after placement of neuraxial catheter. BMI 40-49.9. 05-Sep-2022 00:16 Enoxaparin SubCutaneous is not required hydrALAZINE (APRESOLINE) Injectable DOSE = 5 mg IntraVenous Push Once, PRN Acute-onset, severe HTN w/out known, suspected CADClinician Notes: Consult provider prior to administration. Push over more than 2 minutes. Systolic greater than or equal to 16 05-Sep-2022 00:16 hydrALAZINE (APRESOLINE) Injectable is not required Ibuprofen Tablet (ADVIL, MOTRIN)DOSE = 600 mg Oral Every 6 HoursClinician Notes: Give with Acetaminophen. 05-Sep-2022 00:16 Ibuprofen is not required Labetalol Injectable (TRANDATE)DOSE = 20 mg IntraVenous Push Once, PRN Acute-onset, sev HTN w/o active asthma, joan<60Clinician Notes: Consult provider prior to administration. Push over more than 2 minutes. Systolic greater than or equal to 160 OR 05-Sep-2022 00:16 Labetalol Injectable is not required Lanolin Topical Ointment (LANSINOH)DOSE = 1 application(s) Topical Every 24 Hours, PRN Dry SkinApply to NippleClinician Notes: After and PRN 05-Sep-2022 00:16 Lanolin Topical is not required Loperamide Capsule (IMODIUM)DOSE = 4 mg Oral Every 2 Hours, PRN If Carboprost given or loose stoolsClinician Notes: Max dose of 16mg / 24 hours 05-Sep-2022 00:16 Loperamide is not required Magnesium Hydroxide -Al Hydrox -Simethicone Oral Liquid (MAALOX)DOSE = 30 mL Oral Every 4 Hours, PRN Indigestion 05-Sep-2022 00:16 Magnesium Hydroxide -Al Hydrox -Simethicone Oral Liquid is not required Measles -Mumps -Rubella (Live) MMR Vaccine DOSE = 0.5 mL SubCutaneous Once, PRN if patient screen is non- immune or equivocalClinician Notes: administer if patient screen is non- immune or equivocal 05-Sep-2022 00:16 Measles -Mumps -Rubella (Live) MMR Vaccine is not required Methylergonovine Injectable (METHERGINE)DOSE = 0.2 mg IntraMuscular Once, PRN PPH in pts w/o HTN or receiving ART for HIV mgmt.Clinician Notes: Consult provider prior to administration.Notes from Pharmacy: Reproductive Risk - Single Nitrile Glove 05-Sep-2022 00:16 Methylergonovine Injectable is not required Metoclopramide Injectable (REGLAN)DOSE = 10 mg IntraVenous Push Every 6 Hours, PRN persistent PONV if first line ineffective 05-Sep-2022 00:16 Metoclopramide Injectable is not required miSOPROStol Rectal Tablet (Cytotec)DOSE = 800 microgram(s) Rectal Once, PRN post bleedingClinician Notes: Consult provider prior to administration.Notes from Pharmacy: Reproductive Risk - Single Nitrile Glove 05-Sep-2022 00:16 miSOPROStol Rectal is not required NIFEdipine (PROCARDIA) Immediate Release CapsuleDOSE = 10 mg Oral Once, PRN Acute-onset, severe HTN w/out IV access/ pref oralClinician Notes: Consult provider prior to administration. Systolic greater than or equal to 160 OR Diastolic greater than or 05-Sep-2022 00:16 NIFEdipine (PROCARDIA) Immediate Release is not required Ondansetron Injectable (ZOFRAN)DOSE = 4 mg IntraVenous Push Every 6 Hours, PRN PONV, first line 05-Sep-2022 00:16 Ondansetron Injectable is not required Oxytocin 30 units/ NaCL 0.9% 500 mL Infusion with Bolus from Bag IntraVenous (PITOCIN)INITIAL Bolus = 600 milliunits/min infused over 30 minutesDose Rate: 60 milliunits/minAdmin Rate = 60 mL/hrSt (more content not included)... [facility] Daily Progress Note - OB-Pos t-partumon 09-05-2022 Daily Progress Note - GM-Ihqo-eatgwg Current Stage: Stage: Post- Subjective Data: Post : Ambulate: Yes Flatus: Yes Tolerate Diet: Yes : PPD #1/2 Resting well. Breast-feeding. Objective Information: Objective Information: T PRBPMAPSpO2 [id number] % Date/Time09/05 3: 3: 3: 3: 3: 3:03 Range(36.1C - 37.2C ) (66 - 132 ) (16 - 18 ) (107 - 165 )/ (51 - 98 ) (74 - 113 ) (90% - 100% ) Highest temp of 37.2 C was recorded at 09/04 11:01 Pain reported at 09/05 3:03: 3 = Mild Physical Exam: Constitutional: alert, oriented Obstetric: Abdomen: Soft and nontender Respiratory/Thorax: normal respiratory effort, lungs clear, no wheezes or rhonchi Cardiovascular: S1 S2 RRR, no murmurs Extremities: no calf tenderness, reflexes 2+ Assessment and Plan: Additional Dx: Single live : Entered Date: 05-Sep-2022 00:19 Normal spontaneous vaginal delivery: Entered Date: 05-Sep-2022 00:19 39 weeks gestation of : Entered Date: 01-Sep-2022 15:44 Assessment: PPD #1/2 Progressing well. Electronic Signatures: Isha Osei) (Signed 05-Sep-2022 07:04) Authored: Current Stage, Subjective Data, Objective Data, Assessment and Plan, Note Completion Last Updated: 05-Sep-2022 07:04 by Isha Osei) [facility] Delivery Recordon 09-05-2022 Delivery Record Lab Tests/Results: Labs: Labs: Blood Typed Date: 03-Mar-2022 Blood Type: A positive Antibody Screen Results: negative Chlamydia Date: 03-Mar-2022 Chlamydia Results: negative Gonorrhea Date: 03-Mar-2022 Gonorrhea Results: negative Group B Strep Date: 15-Aug-2022 Strep Results: negative GCT (dd-mmm-yy): 21-Jun-2022 GCT result: 166 GTT - Extended (dd-mmm-yy): 26-Jun-2022 GTT - Extended - Fastin GTT - Extended - 1 hour: 168 GTT - Extended - 2 hour: 176 GTT - Extended - 3 hour: 118 HBsAG Date: 03-Mar-2022 HBsAG Results: negative HIV Date: 03-Mar-2022 HIV Results: negative Rubella Date: 03-Mar-2022 Rubella Results: immune Rubella Comments: Result Value POSITIVE Syphilis (mmm-dd-yyyy): 04-Sep-2022 Syphilis Results: negative Maternal Delivery Information: Vaginal Delivery Information: Counts Correctyes Delivery Information: A Delivery Information: Baby A Delivery: Rupture of Membranes date/[id number] 16:08 Amniotic Fluid Colorclear Delivery Typevaginal delivery Delivery Locationlabor and delivery Delivery Date/[id number] 00:05 Length of Time of ROM (rounded down to nearest hour)7 Sexfemale Identification Band [id number] Electronic Transponder [id number] ID Bands Verified byMarcos Jones RN 4th ID band toSteve FOB Weight (kg)3.855 kilogram(s) Length (cm)52 centimeter(s) Head Circumference (cm)33 centimeter(s) Chest Circumference (cm)33 Delivery of Placenta (hh:mm)00:09 Baby A: Placenta disposaldiscarded 1 Min: Heart Ratemore than 100 beats/min Respiratory Rateweak, irregular Muscle Tonesome flexion of extremities Reflex Irritabilitygrimace Colorbody pink, extremities blue 1 Minute Score, Baby A6 Apgars assessed byMarcos Jones RN 5 Min: Heart Ratemore than 100 beats/min Respiratory Rategood, crying Muscle Tonewell flexed Reflex Irritabilitycough or sneeze Colorbody pink, extremities blue 5 Minute Score, Baby A9 Apgars assessed byMarcos Jones RN Resuscitation Efforts: Resuscitation Effortstactile stimulation; bulb syringe Baby A: Transfer Baby A: Transfer toRemains with mother Delivery Team: Maite Jones RN Electronic Signatures: Libby Fowelr (RN) (Signed 05-Sep-2022 01:58) Authored: Maternal Delivery Information Mirtha JonesRN) (Signed 05-Sep-2022 02:39) Authored: Lab Tests/Results, Delivery Information Last Updated: 05-Sep-2022 02:39 by Mirtha Jones (RN) [facility] No Panel Informationon 09-05 ORDER RECD [facility] [address] Work Phone: REQUEST-LEUKOREDUCED RED CELSO LSon 09-05-2022 REQUEST-LEUKOREDUCED RED CELLS ORDER RECD [facility] Comment on above: Performed By: #### O SAFETY SITTER #### [place] [address] Admission Risk Screen - OBon 09-04-2022 Admission Risk Screen - OB Allergies: Allergies: sulfa drugs: Swelling/Edema, Resp Distress Patient Verification: New W ID Band Applied in my Departmentyes Patient Identity Verified Bypatient ID Band FULL Name, include Middle, spelling matches patient's ID used for verificationyes ID Band Matches Patient ID used for Verficationyes ID Band MRN Matches EMR MRNyes Visitor Restriction: Coronavirus Visitor Restriction: Reasonable restrictions to in-person visitors will be observed due to current coronavirus pandemic. Travel History: COVID-19 Screening Completedno exposure or symptoms Travel or Exposure Past 30 DaysNO travel to International locations in the past 30 days Advance Directive: Advance Directive/DNRno Advance Directive Information Givenpatient/family declined Farley Fall Screen: History of falling (immediate or previous)no (0) Secondary Diagnosisno (0) Intravenous Therapy/ Heparin/Saline Lockno (0) Gait/Transferringnormal/ bedrest/wheelchair (0) Ambulatory Aidsnone/bedrest/nurse assist (0) Mental Statusoriented to own ability (0) Score: Low risk (<25). Moderate risk (25-44). High risk (>44).0 Farley InterventionsLOW INTERVENTIONS: *patient oriented to surroundings and call system, * patient/family falls education completed and documented, *patients fall status communicated during bedside handoff, *whiteboard updated, *mode of toileting discussed with patient, *bed in low position with brakes locked, *call light in reach, * non-skid footwear Functional screen: Functional Screen: In the recent/past 2-4 weeks, patient or family have noticedno issues that require a rehabilitation consult at this time Learning Assessment (Patient): Patient is Able to be Assessed for Learningyes Factors Influencing Readiness to Learnanxiety Factors that Impact Ability to Learnnone Devices/Methods Used to Communicateglasses Learning Preferencesverbal instruction; written material Cultural Considerationsnone Developmental Considerationsnone Islam Considerationsnone Learning Assessment (Other Learner): Other learner availableno Nutrition Risk Screen: Nutrition Risk Screenno indicators present Nutrition Consult needed this visitno Can Patient Participate in Room Serviceyes Pain Screen: Pain Control Method: Laborepidural; medication Pain Control Method: Postpartummedication Pain Scalenumerical 0-10 Pain Scale Educationteaching provided Acceptable Pain Level7 = Severe Presence of Painno Expression of Pain (nonverbal)change in activity pattern, verbalization Lifestyle Changes/Adaptations in Response to Painno change Barriers to Reporting Painnone Chronic Painno Skin - Too Scale: Too Scale (daily): Too: Sensory Perception (response to environment)(4) no impairment Too: Moisture (degree skin exposed to moisture)(4) rarely moist Too: Activity (ability to walk)(4) walks frequently Too: Mobility (amount/control of body movement)(4) no limitation Too: Nutrition (quality of food intake)(4) excellent Too: Friction and Shear(3) no apparent problem Too: Score23 Pressure Injury Present on Admissionno Spiritual Screen: Are there any cultural, spiritual, jain practices/values/needs that are important for us to knowno Do you want a visit/item from Pastoral Careno Would you like your Vice President Sales And Marketing/Fine Hairer notifiedno Depression Screen: During the past month, have you often been bothered by feeling down, depressed or hopelessno During the past month, have you often had little interest or pleasure in doing thingsno Have you had any thoughts of harming anyone elseno [place] Suicide: Risk Screen Not Applicable/Able to Answerable to be screened In the Past Month: Have you wished you were or could go to sleep and not wake upno In the Past Month: Have you had any actual thoughts of killing yourselfno Lifetime: Have you ever done, started to do, or prepared to do anything to end your lifeno [place] Suicide Risknegative Family Violence Screen: Are you or have you been threatened or abused physically, emotionally, or sexually by anyoneno Has anyone ever threatened to hurt your family or your petsno Does anyone try to keep you from having/contacting other friends or doing things outside your homeno Do you feel UNSAFE going back to the place where you are livingno Do you feel anyone has exploited or taken advantage of you financially or of your personal propertyno Clinical assessment: Are there any apparent signs of injuries/behaviors that could be related to abuse/neglectno Social Service Consult for abuse/neglect needed this visitno Vaccinations: Vaccination - Influenza Vaccination Screen: Is it flu season (between and October 20)Yes Screening for identified contraindications to influenza vaccination patient/caregiver refusal Vaccination - Pneumonia Vaccination Screen (more content not included)... Normal [facility] CBCon 09-04-2022 Erythrocyte distribution width (RBC) [Ratio] 13.3 % Normal 11.5 - 14.5 [facility] Comment on above: Performed By: #### C BC #### [place] [address] Hematocrit (Bld) [Volume fraction] 36.2 % Normal 36.0 - 46.0 [facility] Comment on above: Performed By: #### C BC #### [address] [address] Hemoglobin (Bld) [Mass/Vol] 11.8 g/dL Low 12.0 - 16.0 [facility] Comment on above: Performed By: #### C BC #### [address] [address] MCHC (RBC) [Mass/Vol] 32.6 g/dL Normal 32.0 - 36.0 [facility] Comment on above: Performed By: #### C BC #### [address] [place] [address] MCV (RBC) [Entitic vol] 91 fL Normal 80 - 100 [facility] Comment on above: Performed By: #### C BC #### [address] [address] Platelets (Bld) [#/Vol] 189 10*3/uL Normal 150 - 450 [facility] Comment on above: Performed By: #### C BC #### [place] [id number] RBC 3.98 x10E12/L Low 4.00 - 5.20 [facility] Comment on above: Performed By: #### C BC #### [place] [id number] WBC (Bld) [#/Vol] 9.7 10*3/uL Normal 4.4 - 11.3 [facility] Comment on above: Performed By: #### C BC #### [place] [id number] Clinical Event Note-Labor No reji 09-04-2022 Clinical Event Note-Labor Note Clinical Event: Clinical Event Note: TopicLabor Note Details 1. Caceres bulb came out about an hour ago 2. Vaginal exam: 3-4/50%/-2 3. AROM for clear fluid 4. Pitocin at 10MU, contractions every 2-3 minutes 5. Cat I tracing Electronic Signatures: Isha Osei) (Signed 04-Sep-2022 16:14) Authored: Clinical Event Note Last Updated: 04-Sep-2022 16:14 by Isha Osei) [facility] Clinical Event Note-Labor Note Clinical Event: Clinical Event Note: TopicLabor Note Details 1. Vaginal exam: 1/thick/-2 2. Caceres bulb placed and balloon inflated with 60ml of saline and taped to right inner thigh 3. Pitocin at 10MU, contractions every 2-3 minutes 4. Cat I tracing Electronic Signatures: Isha Osei) (Signed 04-Sep-2022 12:26) Authored: Clinical Event Note Last Updated: 04-Sep-2022 12:26 by Isha Osei) [facility] Laboratory - Blood bankon ABO group Nom (Bld) [facility] [address] Work Phone: [phone] Blood group antibody screen Ql Negative [facility] [address] Work Phone: [phone] Rh immune globulin screen (Bld) [Interp] Positive [facility] [address] Work Phone: [phone] Laboratory - Hematology and Cell countson 09-04-2022 Erythrocyte distribution width (RBC) [Ratio] 13.3 % See Below [facility] [address] Work Phone: [phone] Comment on above: Reference Range: 11. 5 - 14.5 Hematocrit (Bld) [Volume fraction] 36.2 % See Below [facility] [address] Work Phone: [phone] Comment on above: Reference Range: 36. 0 - 46.0 Hemoglobin (Bld) [Mass/Vol] 11.8 g/dL below low threshold See Below [facility] [address] Work Phone: [phone] Comment on above: Reference Range: 12. 0 - 16.0 MCHC (RBC) [Mass/Vol] 32.6 g/dL See Below [facility] [address] Work Phone: [phone] Comment on above: Reference Range: 32. 0 - 36.0 MCV (RBC) [Entitic vol] 91 fL 80 - 100 [facility] [address] Work Phone: [phone] Platelets (Bld) [#/Vol] 189 10*3/uL 150 - 450 [facility] [address] Work Phone: [phone] RBC (Bld) [#/Vol] 3.98 {x10E12/L} below low threshold See Below [facility] [address] Work Phone: [phone] Comment on above: Reference Range: 4.0 0 - 5.20 WBC (Bld) [#/Vol] 9.7 10*3/uL 4.4 - 11.3 [facility] [address] Work Phone: Order Reconciliationon 09-04 Order Reconciliation Page 1 Admission Reconciliation Document Reconciliation Type: Admission requested on behalf of Isha Osei (Physician) done by Isha Osei) Admission - Reconciliation: 04-Sep-2022 06:49 by: Isha Osei) Home MedicationsEnteredLast Dose TakenReconciled with current Order Reconciliation Comment/ Additional Information 1 oral capsule 04-Sep-2022 Reviewed and Held Additional Current Orders Acetaminophen Rectal Suppository (TYLENOL)DOSE = 650 mg Rectal Once, PRN Initial pain mgmt following deliveryClinician Notes: Administer in the OR. Butorphanol Injectable (NON-Formulary) (STADOL)DOSE = 1 mg IntraVenous Push Every 10 Minutes, PRN Labor coping per patient requestStop After 2 DosesClinician Notes: Only to be used during a shortage of NalbuphineRepeat 1 mg dose 10 minutes after initial dose if labor pain unrelieved. Carboprost IntraMuscular (HEMABATE)DOSE = 250 microgram(s) IntraMuscular Once, PRN post bleeding in non-asthmatic patientClinician Notes: Consult provider prior to administration. hydrALAZINE (APRESOLINE) Injectable DOSE = 5 mg IntraVenous Push Once, PRN Acute-onset, severe HTN w/out known, suspected CADClinician Notes: Consult provider prior to administration. Push over more than 2 minutes. Systolic greater than or equal to 160 OR Diastolic greater than or equal to 110. Contraindication: coronary artery disease (CAD); Caution in suspected CAD. Labetalol Injectable (TRANDATE)DOSE = 20 mg IntraVenous Push Once, PRN Acute-onset, sev HTN w/o active asthma/ joan<60Clinician Notes: Consult provider prior to administration. Push over more than 2 minutes. Systolic greater than or equal to 160 OR Diastolic greater than or equal to 110. Contraindications: active asthma, heart disease, heart failure, maternal bradycardia < 60. Lactated Ringers Infusion IV Bag Volume = 1,000 mL Run at: 125 mL/hr IntraVenous Lactated Ringers IV Bolus DOSE = 500 mL Once, PRN resuscitationInfuse over 30 minute(s) Lactated Ringers IV Bolus DOSE = 500 mL Once, PRN If patient is given an EpiduralInfuse over 30 minute(s)Clinican Notes: Give 30 minutes prior to Epidural catheter placement Loperamide Capsule (IMODIUM)DOSE = 4 mg Oral Every 2 Hours, PRN If Carboprost given or loose stoolsClinician Notes: Max dose of 16mg / 24 hours Methylergonovine Injectable (METHERGINE)DOSE = 0.2 mg IntraMuscular Once, PRN PPH in pts w/o HTN or receiving ART for HIV mgmt.Clinician Notes: Consult provider prior to administration. miSOPROStol Rectal Tablet (Cytotec)DOSE = 800 microgram(s) Rectal Once, PRN post bleedingClinician Notes: Consult provider prior to administration. NIFEdipine (PROCARDIA) Immediate Release CapsuleDOSE = 10 mg Oral Once, PRN Acute-onset, severe HTN w/out IV access/ pref oralClinician Notes: Consult provider prior to administration. Systolic greater than or equal to 160 OR Diastolic greater than or equal to 110. Capsules administered orally and swallowed whole; Do not puncture or crush; Do not administer sublingually. Ondansetron Injectable (ZOFRAN)DOSE = 4 mg IntraVenous Push Once, PRN Nausea & Vomiting Oxytocin 30 units/ NaCL 0.9% 500 mL Infusion with Bolus from Bag IntraVenous (PITOCIN)INITIAL Bolus = 600 milliunits/min infused over 30 minutesDose Rate: 60 milliunits/minAdmin Rate = 60 mL/hrStop After 1 DosesClinician Notes: 600 milliunits/min x 30 mins., then 60 milliunits/min for the remainder of the bag. Begin infusion at delivery of infant(s).Notes from Pharmacy: DOSE Rate = 60 milliunits/min = 60 mL/hr. Oxytocin 30 units/ NaCL 0.9% 500 mL Infusion with Bolus from Bag IntraVenous (PITOCIN)INITIAL Bolus = 600 milliunits/min infused over 30 minutesDose Rate: 60 milliunits/minAdmin Rate = 60 mL/hrStop After 1 DosesClinician Notes: Conditional order. 600 milliunits/min x 30 mins., then 60 milliunits/min for the remainder of the bag. Consult Provider prior to administration.Notes from Pharmacy: DOSE Rate = 60 milliunits/min = 60 mL/hr. Oxytocin 30 units/ NaCL 0.9% 500 mL Infusion. Solution (PITOCIN)IntraVenous Initial Admin Rate = 2 mL/hrMAX DOSE Rate = 30 milliunits/minTitration Directions: Increase infusion rate every 30 min by 2 mU/min per Oxytocin Administration guideline and algorithm. Titrate to maintain adequate contraction pattern with labor progress. Titration dosing schedule: 60 mU/ mL at 1 mL/hr = 60 mU/60 min = 1 mU/minNotes from Pharmacy: Initial DOSE Rate = 2 milliunits/min = 2 mL/hr. Oxytocin Injectable (PITOCIN)DOSE = 10 unit(s) IntraMuscular OnceClinician Notes: Conditional order. Consult Provider prior to administration. Oxytocin Injectable (PITOCIN)DOSE = 10 unit(s) IntraMuscular Once, PRN Management-3rd Stage of labor if not given IVPBClinician Notes: Consult Provider prior to administration. Sodium Chloride 0.9% Injectable Flush via Peripheral LineVolume = 10 mL IntraVenous Flush Lissette (more content not included)... [facility] Patient Profile - OB v3on Patient Profile - OB v3 Profile: Initial Info: How to be Addressedbrittany(1) Spoken Language PreferredEnglish Source of Informationpatient Reason for admission this visitexpected delivery Wants Family/Rep Notified of Admissionn/a; family present Notify PCPdo not notify PCP Informed of Patient Visiting Rightsyes Limitations on Visitors/Phone Callsnone Temporary Family Living Arrangements (While Hospitalized)none [facility] in Past 90 Daysnone Patient Belongingsremains with patient Patient Belongings Remaining with Patientcash/credit card; cell phone/electronics; clothing; purse/wallet Home Meds have been Reviewed and Verified with Patient/Familyyes Medications Brought to Hospitalno Info: Gravida2 Term Deliveries1 Deliveries0 Abortions0 Living Children1 Patient stated [id number] Calculation of EGA based on patient stated EDD39.1 Records availableyes Trimester Care Initiatedfirst Care ProviderAllman Current Risksnone Testsultrasound Previous live (any gestational age)yes Most Recent Live [id number] All Previous Delivery Type(s)vaginal delivery All Previous /Delivery Complicationsnone Planno Baby's Post Discharge Care Provider (Provider Name, Address and Phone Number) [facility] Cord Blood/Tissue Banking Plannednone Feedingbreastmilk Benefits of Breast Milk DiscussionThe benefits of exclusive breast milk feeding and the risk of adding formula have been discussed with patient / mother. Discussion Date / [id number] 07:15 Previous Experienceyes General Health: Current Weight in kg118.5 kilogram(s) Current Weight in ech255.2 pound(s) Weight Methodactual (measured) Scale Typestanding Pre Weight (lb)197 pound(s) Total Weight Gain (lb)64 pound(s) Height in feet5 feet Height in inches6.97 inch(es) Height in cm170.1 centimeter(s) Height Methodstated BMI (kg/m2)40.955 square meter Patient or Family Member Reaction to Anesthesiano previous reaction; no previous family member reaction Blood Avoidance/Restrictionsno ne Previous Transfusion Reactionnot applicable Rsp Based Care: How would you like to participate in your carekeep involved What is the number one concern for you during this hospitalizationhealthy momand baby What is the most important thing we can do to support you during this hospitalizationupdated Is there anything we need to know to best care for youno Substance: Smoking Statusnever smoker Alcohol Usedenies Drug Usedenies Drug 2 Usedenies Health Mgmt: Symptoms/Conditions Managed at Homenone Barriers to Managing Healthnone Relationship/Environ: Primary Source of Support/Comfortspouse; parent Lives Withdependent child(ning); spouse Living Arrangementshouse Significant Exposurenone Resource/Environmental Concernsnone [facility] Anticipated at Transitionnone Additional Information: Information Review: Allergies and Significant Events have been Reviewed and Verified with Patient/Familyyes Allergy, Intolerance, Adverse Event: Allergies: sulfa drugs: Drug Category, Swelling/Edema, Resp Distress, Active Electronic Signatures: Carley Coates (MARKELL) (Signed 04-Sep-2022 07:28) Authored: Initial Info, Info, General Health, Rsp Based Care, Substance, Health Mgmt, Relationship/Environ, Additional Information Last Updated: 04-Sep-2022 07:28 by Carley Coates (MARKELL) References: 1. Data Referenced From Patient Profile - Preop v2 02-Feb-2021 12:10 [facility] SYPHILIS SCREENING WITH REFL EXon 09-04-2022 SYPHILIS TOTAL AB Non-Reactive Normal NONREACTIVE [facility] Comment on above: Result Comment: No s ignificant level of Treponema pallidum antibody detected. Repeat testing in 2 to 4 weeks may be considered if early infection or incubating syphilis infection is suspected. Performed By: #### S YPHR #### [facility] [place] [facility] [address] [place] [address] Lab Specimen Source Normal [facility] Comment on above: Performed By: #### S YPHR #### [facility] [address] [place] [address] T. pallidum IgG+IgM IA Ql (S) Non-Reactive See Below [facility] [address] Work Phone: Comment on above: SOURCE: Reference Ra nge: NONREACTIVENo significant level of Treponema pallidum antibody detected. Repeat testing in 2 to 4 weeks may be considered if early infection or incubating syphilis infection is suspected. TYPE + SCREENon 09-04-2022 ABO TYPE A [facility] Comment on above: Performed By: #### T +S ####[place] [address] RH TYPE Positive [facility] Comment on above: Performed By: #### T +S ####[place] [id number] CORONAVIRUS 2019, SCREEN ASY MPTOMATICon 09-02-2022 SARS-CoV-2 (COVID-19) RNA LAKISHA+probe Ql (Unsp spec) Not detected Normal Not Detected [facility] Comment on above: Result Comment: . This assay is designed to detect the ORF1a/b and E genes of SARS-CoV-2 via nucleic acid amplification. A Not Detected result does not preclude 2019-nCoV infection since the adequacy of sample collection and/or low viral burden may result in presence of viral nucleic acids below the clinical sensitivity of this test method. Fact sheet for providers: https://www.fda.gov/media/124636/download Fact sheet for patients: https://www.fda.gov/media/717521/download This test has received FDA Emergency Use Authorization (EUA) and has been verified for use by [facility] ([facility]). This test is only authorized for the duration of time that circumstances exist to justify the authorization of the emergency use of in vitro diagnostic tests for the detection of SARS-CoV-2 virus and/or diagnosis of COVID-19 infection under section 564(b)(1) of the Act, 21 U.S.C. 360bbb-3(b)(1), unless the authorization is terminated or revoked sooner. [facility] is certified under CLIA-88 as qualified to perform high complexity testing. Testing is performed in the [facility] laboratories located at [address] [place] [address]. Performed By: #### C OVSC #### [address] [place] [address] Covid 19 Resultson 3 SARS-CoV-2 (COVID-19) RNA LAKISHA+probe Ql (Unsp spec) NEGATIVE COVID-19 Test Coronaviruses are common world-wide and are the cause of many common colds. SARS-COV2 is a new coronavirus that began circulating worldwide in 2019 so we are calling it COVID-19. It has been estimated that four out of five patients with COVID-19 will recover at home without the need for medical attention. Symptoms of COVID-19 may include cough, fever, shortness of breath, loss of taste or smell and other flu-like symptoms including chills, sore muscles, sore throat, and headache. Severe illness is more common in older people and people with other health problems such as high blood pressure, obesity, and immune system problems. If the test is positive, you have COVID-19. You will be contacted by the ordering physicians office and instructed to remain on home isolation, in accordance with CDC guidelines. You may also be contacted by the [facility] to see if any of your close contacts may have been exposed to the virus and need to quarantine. If the test is negative, you likely do not have COVID-19 at this time, but you still may have a different illness that can spread to other people (like Influenza, or the Flu) and could still be at risk for getting COVID-19. We recommend that you stay away from other people to limit the spread of illness until your symptoms are improving and you are fever-free for 24 hours without the use of fever lowering medications such as acetaminophen or ibuprofen. No test is 100% accurate so if you are still concerned you may have COVID-19, talk to your doctor about the need to continue to stay away from others. Medicines Unless your provider told you not to use the following: Acetaminophen (Tylenol and others) is generally safe. Anti-inflammatory medications, such as Ibuprofen (Advil or Motrin) or Naproxen (Aleve) can also be used. Msuw-zxs-ogigedk cough and cold medicines can be used according to the instructions on the package. Some lgvq-saq-jpinxnf medicines also contain acetaminophen. Make sure you are not taking more than your recommended dose. For those not hospitalized, there is no specific treatment available for this illness. Antibiotics do not treat Coronaviruses. Follow-Up Follow up with your doctor by scheduling a virtual visit or consider follow-up at one of our urgent care fever clinics. If you are having difficulty breathing, or are very weak and having difficulty standing, this is a medical emergency. Call 911 or have someone take you to the nearest emergency room immediately. If possible, wear a facemask. Additional guidance from the CDC for patients who tested POSITIVE for COVID-19 How to isolate: Isolate yourself in a specific room at home and limit your contact with others. Use a separate bathroom from other members of the household, when possible. Leave home only to get essential medical care. Do not go to work, school or public areas. Avoid using public transportation, ride-sharing, or taxis. Restrict contact with pets and other animals. If you must care for your pet or be around animals while you are sick, wash your hands before and after your interaction and wear a facemask. Make sure that shared spaces in the home have good airflow, such as by an air conditioner or an opened window, weather permitting. Personal Hygiene Procedures: Wear a face mask when in the same room as other people or pets. If a face mask interferes with your breathing, others should wear a mask when sharing space with you. Frequent hand-washing: wash your hands with soap and water for at least 20 seconds. If soap and water are not available, use alcohol-based hand well control instructor. Avoid touching your eyes, nose, and mouth with unwashed hands. Household Hygiene Procedures: Avoid sharing personal household items such as dishes, glassware, cups, eating utensils, towels or bedding with other people or pets in your home. After use, these items should be washed with soap and hot water. Disinfect all high-touch surfaces every day with antibacterial cleaning solutions such as Lysol wipes, bleach, cleansers, etc. High-touch surfaces include tabletops, doorknobs, bathroom fixtures, toilets, phones, keyboards, tablets and bedside tables. Immediately clean any surfaces that may have blood, poop or body fluids on them, using antibacterial cleaning solutions such as Lysol wipes, bleach, cleansers, etc. If clothing or bedding come into contact with blood, poop or body fluids, they should be washed immediately. Follow the directions on the laundry detergent and clothing labels but hot water is recommended when possible. Stopping home isolation precautions: If possible, consult your doctor before stopping home isolation precautions. According to the CDC, you can discontinue home isolation precautions when you have met both of these criteria: Your fever and respiratory symptoms have been gone for 24 norberto (more content not included)... Normal [facility] CORONAVIRUS 2019, SCREEN ASY MPTOMATICon 09-01-2022 Lab Specimen Source Nasal, Nasopharyngeal Normal [facility] Comment on above: Performed By: #### C OVSC #### [facility] [address] [place] [address] Coronavirus 2019 RNA by PCR, Screening Asymptomticon 09-01-2022 Coronavirus 2019 RNA by PCR, Screening Asymptomtic Not detected Normal See Below [facility] [address] Work Phone: Comment on above: SOURCE: Nasal, Nasop haryngealReference Range: Not Detected.This assay is designed to detect the ORF1a/b and E genes of SARS-CoV-2 via nucleic acid amplification. A Not Detected result does not preclude 2019-nCoV infection since the adequacy of sample collection and/or low viral burden may result in presence of viral nucleic acids below the clinical sensitivity of this test method. Fact sheet for providers: https://www.fda.gov/media/304300/download Fact sheet for patients: https://www.fda.gov/media/491611/download This test has received FDA Emergency Use Authorization (EUA) and has been verified for use by [facility] ([facility]). This test is only authorized for the duration of time that circumstances exist to justify the authorization of the emergency use of in vitro diagnostic tests for the detection of SARS-CoV-2 virus and/or diagnosis of COVID-19 infection under section 564(b)(1) of the Act, 21 U.S.C. 360bbb-3(b)(1), unless the authorization is terminated or revoked sooner.[facility] is certified under CLIA-88 as qualified to perform high complexity testing. Testing is performed in the [facility] laboratories located at [address] [place] [address]. No Panel Informationon 08-28 Normal [facility] [address] Work Phone: US AGE FOL-UP PER FETU Son 08-28-2022 US AGE FOL-UP PER FETUS Patient Name: GENARO STOKES STUDY: US AGE FOL-UP PER FETUS 08/28/2022 3:00 pm INDICATION: 27 y/o F with growth Z3A.36: 36 weeks gestation of . LMP: Unknown. COMPARISON: None. ACCESSION NUMBER(S): [id number] ORDERING CLINICIAN: ISHA OSEI TECHNIQUE: Routine ultrasound of the pelvis was performed. Evaluation of the female pelvis was performed by transabdominal technique. Static images were obtained for remote interpretation. FINDINGS: There is a single live intrauterine gestation in cephalic presentation. Measurements by gestational age: BPD: 38 weeks 4 days HC: 38 weeks 3 days AC: 9 weeks 4 days FL: 38 weeks This results in a composite gestational age of 38 weeks 5 days , + / -2 weeks 5 days. The estimated date of delivery by ultrasound is 09/06/2022. heart rate measures 152bpm. The placenta is posterior in position. The amniotic fluid volume appears appropriate with a fluid index of 17 cm.. Cervical length: 5.4 cm. weight: 3644 + / - 546 g. This is at the approximate 80 percentile. anatomy: Evaluation of anatomy was not performed. Maternal anatomy: Not specifically evaluated, but no abnormalities observed. IMPRESSION: Single live intrauterine gestation corresponding to a gestational age of 3 weeks 5 days , + / -2 weeks 5 days. This demonstrates adequate interval growth from the previous examination. Electronically signed by: ERLINDA TAYLOR MD Normal [facility] GROUP B STREP SCREENon 08-15 GROUP B STREP SCREEN PATIENT: GENARO STOKES [place] [facility] [id number] : 89 AGE: SEX: F ORDERED BY: ISHA OSEI SOURCE: VAGINAL COLLECTED: 08/15/22 13:16 ANTIBIOTICS AT ERROL.: RECEIVED : 08/15/22 23:21 SITE: R E S U L T S GROUP B STREP SCREEN FINAL 08/17/22 12:43 NEGATIVE FOR GROUP B BETA STREP. Normal [facility] Comment on above: Performed By: #### G BSCR #### [facility] [address] [place] [address] Laboratory - Microbiology an d Antimicrobial susceptibilityon 08-15-2022 Bacteria identified Aer cx Nom (Genital specimen) [facility] [address] Work Phone: GLUCOSE FREEMAN,3HR PREGNANCYon 06-26-2022 Glucose [Mass/Vol] 118 mg/dL Normal <140 [facility] Comment on above: Performed By: #### G TTP3 #### [address] [address] Glucose [Mass/Vol] 176 mg/dL Abnormal <155 [facility] Comment on above: Performed By: #### G TTP3 #### [address] [address] Glucose [Mass/Vol] 168 mg/dL Normal <180 [facility] Comment on above: Performed By: #### G TTP3 #### [address] [address] Glucose [Mass/Vol] 90 mg/dL Normal <95 [facility] Comment on above: Performed By: #### G TTP3 #### [address] [address] INTERPRETATION SEE BELOW Normal [facility] Comment on above: Result Comment: Diag nostics with glucose loading dose of 100 g. Reference values from [place] [employer]. Diabetes Care 2015;38(Suppl.1):S8-S16. Performed By: #### G TTP3 #### [address] [address] No Panel Informationon 06-26 SEE BELOW [facility] [address] Work Phone: [phone] Comment on above: Diagnostics with glu cose loading dose of 100 g. Reference values from [place] [employer]. Diabetes Care 2015;38(Suppl.1):S8-S16. 118 mg/dL <140 [facility] [address] Work Phone: [phone] mg/dL Abnormal <155 [facility] [address] Work Phone: [phone] mg/dL <180 [facility] [address] Work Phone: [phone] 90 mg/dL <95 [facility] [address] Work Phone: [phone] CBC ANEMIA PANEL WITH REFLEX ,PREGNANCYon 06-21-2022 Erythrocyte distribution width (RBC) [Ratio] 13.0 % Normal 11.5 - 14.5 [facility] Comment on above: Performed By: #### A NEMI #### [address] [address] Hematocrit (Bld) [Volume fraction] 32.7 % Low 36.0 - 46.0 [facility] Comment on above: Performed By: #### A NEMI #### [address] [address] Hemoglobin (Bld) [Mass/Vol] 10.8 g/dL Low 12.0 - 16.0 [facility] Comment on above: Performed By: #### A NEMI #### [address] [address] MCHC (RBC) [Mass/Vol] 33.0 g/dL Normal 32.0 - 36.0 [facility] Comment on above: Performed By: #### A NEMI #### [address] [address] MCV (RBC) [Entitic vol] 93 fL Normal 80 - 100 [facility] Comment on above: Performed By: #### A NEMI #### [address] [address] Platelets (Bld) [#/Vol] 177 10*3/uL Normal 150 - 450 [facility] Comment on above: Performed By: #### A NEMI #### [address] [address] RBC 3.51 x10E12/L Low 4.00 - 5.20 [facility] Comment on above: Performed By: #### A NEMI #### [address] [address] REFLEX ADDED, ANEMIA PANEL FERRITIN,VTB12,FOLATE,IR ON+TIBC Normal [facility] Comment on above: Performed By: #### A NEMI #### [address] [address] WBC (Bld) [#/Vol] 10.3 10*3/uL Normal 4.4 - 11.3 [facility] Comment on above: Performed By: #### A NEMI #### [address] [address] FERRITIN, PREGNANCYon 2021 FERRITIN, 14 ug/L Abnormal > 15 [facility] Comment on above: Performed By: #### F ERRP #### [facility] [address] [address] FOLATE, SERUM, PREGNANCYon 08-21-2021 FOLATE, SERUM, >24.0 Normal >5.0 [facility] Comment on above: Result Comment: Low <3.4 Borderline 3.4-5.0 Normal >5.0 . Biotin interference may cause falsely elevated results. Patients taking a Biotin dose of up to 5 mg/day should refrain from taking Biotin for 24 hours before sample collection. Providers may contact their local laboratory for further information. Performed By: #### F OLPR #### [facility] [address] [place] [address] GLUCOSE,1 HR SCREEN, PREGon 06-21-2022 Glucose [Mass/Vol] 166 mg/dL Abnormal <135 [facility] Comment on above: Result Comment: Diag nostic value with glucose loading dose of 50 g. Reference values from [place] [employer]. Diabetes Care 2015;38(Suppl.1):S8-S16 Performed By: #### G LUS1 #### [facility] [address] [place] [address] Glucose, 1 Hour Screen, Preg nancyon 06-21-2021 Glucose 1 Hr post 50 g glucose PO [Mass/Vol] 166 mg/dL Abnormal <135 [facility] [address] Work Phone: Comment on above: Diagnostic value wit h glucose loading dose of 50 g. Reference values from [place] [employer]. Diabetes Care 2015;38(Suppl.1):S8-S16 IRON + TIBC PREGNANCYon 11-3 0-2022 % SATURATION, 16 % Normal [facility] Comment on above: Result Comment: . Non- 25 - 45 % First Trimester 7 - 57 % Second Trimester 10 - 44 % Third Trimester 5 - 37 % Please note results will not flag based on reference ranges above. Performed By: #### I RNPR #### [facility] [address] [place] [address] IRON, 81 ug/dL Normal [facility] Comment on above: Result Comment: . Non- Female 14-17y 28 - 175 ug/dL Non- Female >=18y 35 - 150 ug/dL . First Trimester 72 - 143 ug/dL Second Trimester 44 - 178 ug/dL Third Trimester 30 - 193 ug/dL Please note results will not flag based on reference ranges above. Performed By: #### I RNPR #### [facility] [address] [address] TIBC, 494 ug/dL Normal [facility] Comment on above: Result Comment: . Non- 240 - 445 ug/dL First Trimester 278 - 403 ug/dL Second Trimester 325 - 514 ug/dL Third Trimester 359 - 609 ug/dL Please note results will not flag based on reference ranges above. Performed By: #### I RNPR #### [facility] [address] [address] IRON + TIBC 16 % [facility] [address] Work Phone: [phone] Comment on above: .Non- 25 - 45 %First Trimester 7 - 57 %Second Trimester 10 - 44 %Third Trimester 5 - 37 %Please note results will not flag based on reference ranges above. IRON + TIBC 494 ug/dL [facility] [address] Work Phone: [phone] Comment on above: .Non- 240 - 445 ug/dLFirst Trimester 278 - 403 ug/dLSecond Trimester 325 - 514 ug/dLThird Trimester 359 - 609 ug/dLPlease note results will not flag based on reference ranges above. IRON + TIBC 81 ug/dL [facility] [address] Work Phone: [phone] Comment on above: .Non- Femal e 14-17y 28 - 175 ug/dLNon- Female >=18y 35 - 150 ug/dL.First Trimester 72 - 143 ug/dLSecond Trimester 44 - 178 ug/dLThird Trimester 30 - 193 ug/dLPlease note results will not flag based on reference ranges above. Laboratory - Chemistry and C hemistry - challengeon 06-21-2022 Cobalamin (Vitamin B12) [Mass/Vol] 296 pg/mL [facility] [address] Work Phone: [phone] Comment on above: Non- 211 - 911 pg/mLFirst Trimester >=118 pg/mLSecond Trimester >=130 pg/mLThird Trimester >= 99 pg/mLPlease note results will not flag based on reference ranges above. Laboratory - Hematology and Cell countson 06-21-2022 Erythrocyte distribution width (RBC) [Ratio] 13.0 % See Below [facility] [address] Work Phone: [phone] Comment on above: Reference Range: 11. 5 - 14.5 Hematocrit (Bld) [Volume fraction] 32.7 % below low threshold See Below [facility] [address] Work Phone: [phone] Comment on above: Reference Range: 36. 0 - 46.0 Hemoglobin (Bld) [Mass/Vol] 10.8 g/dL below low threshold See Below [facility] [address] Work Phone: [phone] Comment on above: Reference Range: 12. 0 - 16.0 MCHC (RBC) [Mass/Vol] 33.0 g/dL See Below [facility] [address] Work Phone: [phone] Comment on above: Reference Range: 32. 0 - 36.0 MCV (RBC) [Entitic vol] 93 fL 80 - 100 [facility] [address] Work Phone: [phone] Platelets (Bld) [#/Vol] 177 10*3/uL 150 - 450 [facility] [address] Work Phone: [phone] RBC (Bld) [#/Vol] 3.51 {x10E12/L} below low threshold See Below [facility] [address] Work Phone: [phone] Comment on above: Reference Range: 4.0 0 - 5.20 WBC (Bld) [#/Vol] 10.3 10*3/uL 4.4 - 11.3 [facility] [address] Work Phone: [phone] No Panel Informationon 06-21 14 ug/L Abnormal > 15 [facility] [address] Work Phone: [phone] FERRITIN,VTB12,FOLAT E,IR ON+TIBC [facility] [address] Work Phone: [phone] >24.0 >5.0 [facility] [address] Work Phone: [phone] Comment on above: Low <3.4Borderline 3 .4-5.0Normal >5.0. Biotin interference may cause falsely elevated results. Patients taking a Biotin dose of up to 5 mg/day should refrain from taking Biotin for 24 hours before sample collection. Providers may contact their local laboratory for further information. VITAMIN B12, PREGNANCYon Cobalamin (Vitamin B12) [Mass/Vol] 296 pg/mL Normal [facility] Comment on above: Result Comment: Non- 211 - 911 pg/mL First Trimester >=118 pg/mL Second Trimester >=130 pg/mL Third Trimester >= 99 pg/mL Please note results will not flag based on reference ranges above. Performed By: #### V 12PR #### [facility] [address] [place] [address] No Panel Informationon 05-11 Normal [facility] [address] Work Phone: [phone] Panel Informationon 04-21 Normal [facility] [address] Work Phone: [phone] Cult, Urineon 03-03-2022 Bacteria identified Cx Nom (U) [facility] [address] Work Phone: [phone] GC + Chlamydia By Amplified Detectionon 03-03-2022 C. trachomatis rRNA LAKISHA+probe Ql (Unsp spec) Negative Negative [facility] [address] Work Phone: [phone] Comment on above: The APTIMA Combo 2 a ssay is FDA-approved for Chlamydia trachomatis and Neisseria gonorrhoeae testing on female endocervical and vaginal swabs, ThinPrep liquid pap samples, male urine samples and urethral swabs. Performance characteristics for Chlamydia trachomatis and Neisseria gonorrhoeae testing on specific mgk-VPE-vsvujtfo sample types (female urine samples) have been validated by [facility]. This laboratory is certified by CLIA to perform high complexity testing. Samples from all other sites are not validated for this method. N. gonorrhoeae rRNA LAKISHA+probe Ql (Unsp spec) Negative Negative [facility] [address] Work Phone: Comment on above: SOURCE: Urine The AP JIMY Combo 2 assay is FDA-approved for Chlamydia trachomatis and Neisseria gonorrhoeae testing on female endocervical and vaginal swabs, ThinPrep liquid pap samples, male urine samples and urethral swabs. Performance characteristics for Chlamydia trachomatis and Neisseria gonorrhoeae testing on specific eum-NFY-bpgindej sample types (female urine samples) have been validated by [facility]. This laboratory is certified by CLIA to perform high complexity testing. Samples from all other sites are not validated for this method. HIV 1/2 ANTIGEN/ANTIBODY SCR EEN WITH REFLEX TO CONFIRMATIONon 03-03-2022 HIV 1+2 Ab Qn (S) Non-Reactive See Below [facility] [address] Work Phone: [phone] Comment on above: SOURCE: Reference Ra nge: NONREACTIVE HIV Ag/Ab screen is performed using the [employer] [address] HIV Ag/Ab Combo assay which detects the presence of HIV p24 antigen as well as antibodies to HIV-1 (Group M and O) and HIV-2..No laboratory evidence of HIV infection. If acute HIV infection is suspected, consider testing for HIV RNA by PCR (viral load). Hepatitis B Surface Antigeno n 03-03-2022 Hepatitis B Surface Antigen Non-Reactive See Below [facility] [address] Work Phone: [phone] Comment on above: SOURCE: Reference Ra nge: NONREACTIVE Biotin interference may cause falsely decreased results. Patients taking a Biotin dose of up to 5 mg/day should refrain from taking Biotin for 24 hours before sample collection. Providers may contact their local laboratory for further information. SOURCE: Reference Ra nge: NONREACTIVE Results from patients taking biotin supplements or receiving high-dose biotin therapy should be interpreted with caution due to possible interference with this test. Providers may contact their local laboratory for further information. Laboratory - Blood bankon ABO group Nom (Bld) Canceled [facility] [address] Work Phone: [phone] ABO group Nom (Bld) A [facility] [address] Work Phone: [phone] Blood group antibody screen Ql Canceled [facility] [address] Work Phone: [phone] Blood group antibody screen Ql Negative [facility] [address] Work Phone: [phone] Rh immune globulin screen (Bld) [Interp] Canceled [facility] [address] Work Phone: [phone] Rh immune globulin screen (Bld) [Interp] Positive [facility] [address] Work Phone: [phone] Laboratory - Cytologyon 02-20 Cytology report Cyto stain.thin prep Doc (Cvx/Vag) [facility] [address] Work Phone: [phone] Laboratory - Hematology and Cell countson 03-03-2022 Erythrocyte distribution width (RBC) [Ratio] 13.0 % See Below [facility] [address] Work Phone: [phone] Comment on above: Reference Range: 11. 5 - 14.5 Hematocrit (Bld) [Volume fraction] 38.6 % See Below [facility] [address] Work Phone: [phone] Comment on above: Reference Range: 36. 0 - 46.0 Hemoglobin (Bld) [Mass/Vol] 13.0 g/dL See Below [facility] [address] Work Phone: [phone] Comment on above: Reference Range: 12. 0 - 16.0 MCHC (RBC) [Mass/Vol] 33.7 g/dL See Below [facility] [address] Work Phone: [phone] Comment on above: Reference Range: 32. 0 - 36.0 MCV (RBC) [Entitic vol] 90 fL 80 - 100 [facility] [address] Work Phone: [phone] Platelets (Bld) [#/Vol] 214 10*3/uL 150 - 450 [facility] [address] Work Phone: [phone] RBC (Bld) [#/Vol] 4.29 {x10E12/L} See Below [facility] [address] Work Phone: [phone] Comment on above: Reference Range: 4.0 0 - 5.20 WBC (Bld) [#/Vol] 7.7 10*3/uL 4.4 - 11.3 [facility] [address] Work Phone: [phone] Panel Informationon 03-03 NONE [facility] [address] Work Phone: [phone] Rubella IgG Antibodyon 03-03 Rubella virus IgG IA Ql Positive [facility] [address] Work Phone: Comment on above: INTERPRETATIVE COMME NT NEGATIVE: No IgG antibodies specific to Rubella detected. It is likely that the patient has not had a previous exposure to Rubella through infection or vaccination. Alternatively, the patient may have been exposed to Rubella but a failure to respond may indicate immunodeficiency. EQUIVOCAL:Equivocal results; obtain additional sample for retesting. POSITIVE: IgG antibody to Rubella detected. This may indicate that the patient was exposed to Rubella through infection or vaccination.The interpretation of serological tests should take into accountthe immunological status of the patient. Test results forpatients, including immunocompromised patients, neonates, andpediatric patients, reflect their capacity to respondimmunologically to the virus as well as their exposure to thepathogen. Patients treated with IVIG may demonstrate alteredresults in serological assays. SYPHILIS SCREENING WITH REFL EXon 03-03-2022 T. pallidum IgG+IgM IA Ql (S) Non-Reactive See Below [facility] [address] Work Phone: Comment on above: Reference Range: NON REACTIVENo significant level of Treponema pallidum antibody detected. Repeat testing in 2 to 4 weeks may be considered if early infection or incubating syphilis infection is suspected. TYPE + SCREENon 03-03-2022 ABO TYPE A Normal [facility] Comment on above: Performed By: #### T +S #### [place] [address] RH TYPE Positive Normal [facility] Comment on above: Performed By: #### T +S #### [place] [address] CORONAVIRUS 2019 BY PCRon Lab Specimen Source Nasal, Nasopharyngeal Normal [facility] Comment on above: Performed By: #### C OV19 ####[place] [address] SARS-CoV-2 (COVID-19) RNA LAKISHA+probe Ql (Unsp spec) Not detected Normal Not Detected [facility] Comment on above: Result Comment: . This test has received FDA Emergency Use Authorization (EUA) and has been verified by [facility]. This test is only authorized for the duration of time that circumstances exist to justify the authorization of the emergency use of in vitro diagnostic tests for the detection of SARS-CoV-2 virus and/or diagnosis of COVID-19 infection under section 564(b)(1) of the Act, 21 U.S.C. 360bbb-3(b)(1), unless the authorization is terminated or revoked sooner. [facility] is certified under CLIA-88 as qualified to perform high complexity testing. Testing is performed in the [facility] laboratory located at [address] [place] [address]. SARS-CoV-2/Flu/RSV Multiplex Test: Fact sheet for providers: https://www.fda.gov/media/955249/download Fact sheet for patients: https://www.fda.gov/media/961536/download Performed By: #### C OV19 ####[place] [address] Coronavirus 2019 RNA by PCR, Symptomaticon 02-22-2022 Coronavirus 2019 RNA by PCR, Symptomatic Not detected Normal See Below [facility] [address] Work Phone: Comment on above: SOURCE: Nasal, Nasop haryngealReference Range: Not Detected.This test has received FDA Emergency Use Authorization (EUA) and has been verified by [facility]. This test is only authorized for the duration of time that circumstances exist to justify the authorization of the emergency use of in vitro diagnostic tests for the detection of SARS-CoV-2 virus and/or diagnosis of COVID-19 infection under section 564(b)(1) of the Act, 21 U.S.C. 360bbb-3(b)(1), unless the authorization is terminated or revoked sooner. [facility] is certified under CLIA-88 as qualified to perform high complexity testing. Testing is performed in the [facility] laboratory located at [address] [place] [address].SARS-CoV-2/Flu/RSV Multiplex Test: Fact sheet for providers: https://www.fda.gov/media/886040/downloadFact sheet for patients: https://www.fda.gov/media/208905/download Covid 19 Resultson 2 SARS-CoV-2 (COVID-19) RNA LAKISHA+probe Ql (Unsp spec) NEGATIVE COVID-19 Test Coronaviruses are common world-wide and are the cause of many common colds. SARS-COV2 is a new coronavirus that began circulating worldwide in 2019 so we are calling it COVID-19. It has been estimated that four out of five patients with COVID-19 will recover at home without the need for medical attention. Symptoms of COVID-19 may include cough, fever, shortness of breath, loss of taste or smell and other flu-like symptoms including chills, sore muscles, sore throat, and headache. Severe illness is more common in older people and people with other health problems such as high blood pressure, obesity, and immune system problems. If the test is positive, you have COVID-19. You will be contacted by the ordering physicians office and instructed to remain on home isolation, in accordance with CDC guidelines. You may also be contacted by the [facility] to see if any of your close contacts may have been exposed to the virus and need to quarantine. If the test is negative, you likely do not have COVID-19 at this time, but you still may have a different illness that can spread to other people (like Influenza, or the Flu) and could still be at risk for getting COVID-19. We recommend that you stay away from other people to limit the spread of illness until your symptoms are improving and you are fever-free for 24 hours without the use of fever lowering medications such as acetaminophen or ibuprofen. No test is 100% accurate so if you are still concerned you may have COVID-19, talk to your doctor about the need to continue to stay away from others. Medicines Unless your provider told you not to use the following: Acetaminophen (Tylenol and others) is generally safe. Anti-inflammatory medications, such as Ibuprofen (Advil or Motrin) or Naproxen (Aleve) can also be used. Ywab-gxi-lwgrbza cough and cold medicines can be used according to the instructions on the package. Some zqaq-vul-sqvuqbs medicines also contain acetaminophen. Make sure you are not taking more than your recommended dose. For those not hospitalized, there is no specific treatment available for this illness. Antibiotics do not treat Coronaviruses. Follow-Up Follow up with your doctor by scheduling a virtual visit or consider follow-up at one of our urgent care fever clinics. If you are having difficulty breathing, or are very weak and having difficulty standing, this is a medical emergency. Call 911 or have someone take you to the nearest emergency room immediately. If possible, wear a facemask. Additional guidance from the CDC for patients who tested POSITIVE for COVID-19 How to isolate: Isolate yourself in a specific room at home and limit your contact with others. Use a separate bathroom from other members of the household, when possible. Leave home only to get essential medical care. Do not go to work, school or public areas. Avoid using public transportation, ride-sharing, or taxis. Restrict contact with pets and other animals. If you must care for your pet or be around animals while you are sick, wash your hands before and after your interaction and wear a facemask. Make sure that shared spaces in the home have good airflow, such as by an air conditioner or an opened window, weather permitting. Personal Hygiene Procedures: Wear a face mask when in the same room as other people or pets. If a face mask interferes with your breathing, others should wear a mask when sharing space with you. Frequent hand-washing: wash your hands with soap and water for at least 20 seconds. If soap and water are not available, use alcohol-based hand well control instructor. Avoid touching your eyes, nose, and mouth with unwashed hands. Household Hygiene Procedures: Avoid sharing personal household items such as dishes, glassware, cups, eating utensils, towels or bedding with other people or pets in your home. After use, these items should be washed with soap and hot water. Disinfect all high-touch surfaces every day with antibacterial cleaning solutions such as Lysol wipes, bleach, cleansers, etc. High-touch surfaces include tabletops, doorknobs, bathroom fixtures, toilets, phones, keyboards, tablets and bedside tables. Immediately clean any surfaces that may have blood, poop or body fluids on them, using antibacterial cleaning solutions such as Lysol wipes, bleach, cleansers, etc. If clothing or bedding come into contact with blood, poop or body fluids, they should be washed immediately. Follow the directions on the laundry detergent and clothing labels but hot water is recommended when possible. Stopping home isolation precautions: If possible, consult your doctor before stopping home isolation precautions. According to the CDC, you can discontinue home isolation precautions when you have met both of these criteria: Your fever and respiratory symptoms have been gone for 24 norberto (more content not included)... Normal [facility] Risk Screen - OB Triageon Risk Screen - OB Triage Allergies: Allergies: Allergies: sulfa drugs: Swelling/Edema, Resp Distress Patient Verification: Patient Verification: New W ID Band Applied in my Departmentyes Patient Identity Verified Bypatient ID Band FULL Name, include Middle, spelling matches patient's ID used for verificationyes ID Band Matches Patient ID used for Verficationyes ID Band MRN Matches EMR MRNyes Travel History: Travel History: COVID-19 Screening Completedno exposure or symptoms Travel or Exposure Past 30 DaysNO travel to International locations in the past 30 days Advance Directives: Advance Directive: Advance Directive/DNRno Advance Directive Information Givenpatient/family declined Falls Risk: Farley Fall Screen: History of falling (immediate or previous)no (0) Secondary Diagnosisno (0) Intravenous Therapy/ Heparin/Saline Lockno (0) Gait/Transferringnormal/ bedrest/wheelchair (0) Ambulatory Aidsnone/bedrest/nurse assist (0) Mental Statusoriented to own ability (0) Score: Low risk (<25). Moderate risk (25-44). High risk (>44).0 Farley InterventionsLOW INTERVENTIONS: *patient oriented to surroundings and call system, * patient/family falls education completed and documented, *patients fall status communicated during bedside handoff, *whiteboard updated, *mode of toileting discussed with patient, *bed in low position with brakes locked, *call light in reach, * non-skid footwear Learning Assessment (Patient): Learning Assessment (Patient): Patient is Able to be Assessed for Learningyes Factors Influencing Readiness to Learninterest in learning Factors that Impact Ability to Learnnone Devices/Methods Used to Communicateglasses Learning Preferenceswritten material Cultural Considerationsnone Developmental Considerationsnone Islam Considerationsnone Learning Assessment (Other Learner): Other learner availableno Depression/Suicide: Depression Screen: During the past month, have you often been bothered by feeling down, depressed or hopelessyes During the past month, have you often had little interest or pleasure in doing thingsyes Have you had any thoughts of harming anyone elseno [place] Suicide: Risk Screen Not Applicable/Able to Answerable to be screened In the Past Month: Have you wished you were or could go to sleep and not wake upno In the Past Month: Have you had any actual thoughts of killing yourselfno Lifetime: Have you ever done, started to do, or prepared to do anything to end your lifeno [place] Suicide Risknegative Family Violence: Abuse Screen: Are you or have you been threatened or abused physically, emotionally, or sexually by anyoneno Do you feel UNSAFE going back to the place where you are livingno Clinical assessment: Are there any apparent signs of injuries/behaviors that could be related to abuse/neglectno Electronic Signatures: Mirtha Jones (RN) (Signed 22-Feb-2022 20:43) Authored: Allergies, Patient Verification, Travel History, Advance Directives, Farley Fall Screen, Learning Assessment (Patient), Learning Assessment (Other Learner), Depression/Suicide, Family Violence Last Updated: 22-Feb-2022 20:43 by Mirtha Jones (RN) [facility] Triage Note - OB v4on 2021 Triage Note - OB v4 Triage: General Info: Time of Arrival on [id number] 20:05 [facility] Time Acuity Level [id number] 20:10 Chief ComplaintVOMITING DIARRHEA Source of Informationpatient Weight in kg92.5 kilogram(s) Weight in eje985.9 pound(s) Weight Methodactual (measured) Scale Typestanding Height in feet5 feet Height in inches6.97 inch(es) Height in cm170.1 centimeter(s) Height Methodstated BMI (kg/m2)31.969 square meter Home Meds have been Reviewed and Verified with Patient/Familyyes Info: Gravida2 Term Deliveries1 Deliveries0 Abortions0 Living Children1 Patient stated [id number] Calculation of EGA based on patient stated EDD11.4 Records availableyes Trimester Care Initiatedfirst Current Risksnone Substance: Smoking Statusnever smoker Alcohol Usedenies Drug Usedenies Drug 2 Usedenies Disposition/Disch: Dispositiondischarged from facility, home with own care Patient Meets Criteria for Home Blood Pressure Monitorno Admission/Observation/Di scharge/Transfer Date/[id number]-4903 21:35 Discharge Modeambulatory Transportation Methodprivate car Travel History: Travel or ExposureNO travel to International locations in the past 30 days Additional Information: Information Review: Allergies have been Reviewed and Verified with Patient/Familyyes Allergy, Intolerance, Adverse Event: Allergies: sulfa drugs: Drug Category, Swelling/Edema, Resp Distress, Active Electronic Signatures: Mirtha Jones (RN) (Signed 22-Feb-2022 21:43) Authored: General Info, Info, Substance, Disposition/Disch, Travel History, Additional Information Last Updated: 22-Feb-2022 21:43 by Mirtha Jones (RN) [facility] IO HCG, Urine Test on 01-27-2022 HCG ( test) Ql (U) Positive Abnormal [facility] [address] Work Phone: [phone] LMPon 01-27-2022 Last menstrual period start date 04Dec2021 [facility] [address] Work Phone: [phone] ORTHO NURSE - Office Visiton ORTHO NURSE - Office Visit Diagnoses/Problems Assessed Positive urine test (V72.42) (Z32.01) Amenorrhea (626.0) (N91.2) Orders IO HCG, Urine Test; Status:Resulted - Requires Verification,Retrospecti ve Authorization; Done: [id number] 02:31PM Provider Impressions 1. Amenorrhea Follow-up in 4 weeks for new OB visit, cultures and labs. Chief Complaint Patient is here due to amenorrhea. LMP: 12/04/2021. Patient c/o being tired and breast tenderness. Patient denies any nausea, vomiting, cramps or vaginal bleeding. History of Present IllnessPatient presents for evaluation stating she has not had a menstrual flow since November. Patient has some breast tenderness. Denies any nausea or vaginal bleeding. Review of Systems Review of Systems: Constitutional: No fever or chills Respiratory: No shortness of breath, or cough Cardiovascular: No chest pain or syncope Breasts: No masses, no nipple discharge Gastrointestinal: No nausea, vomiting, or diarrhea, no abdominal pain Genitourinary: No dysuria or frequency Gynecology: Negative except as noted in history of present illness All other: All other systems reviewed and negative for complaint Active Problems Problems Abnormal uterine bleeding (AUB) (626.9) (N93.9) Bacterial vaginosis (616.10,041.9) (N76.0,B96.89) Female pelvic pain (625.9) (R10.2) Infertility Infertility counseling (V26.49) (Z31.69) Menorrhagia with regular cycle (626.2) (N92.0) Negative test (V72.41) (Z32.02) Pelvic pain in female (625.9) (R10.2) Positive urine test (V72.42) (Z32.01) Screening for breast cancer (V76.10) (Z12.39) Screening for cervical cancer (V76.2) (Z12.4) Women's annual routine gynecological examination (V72.31) (Z01.419) Past Medical History Problems History of Menstruation Onset age 10 years History of Normal vaginal delivery (650) (O80) 04/25/2018_40weeks 2days_Female_7# 4oz History of Pap test, as part of routine gynecological examination (V76.2) (Z01.419) 09/10/2017: Negative Surgical History Problems History of Dilation and curettage January, History of Hysteroscopy 02-10-2021 Family History Mother Family history of malignant neoplasm of breast (V16.3) (Z80.3) Family history of osteoporosis (V17.81) (Z82.62) Family history of renal cell carcinoma (V16.51) (Z80.51) Father Family history of hypertension (V17.49) (Z82.49) Grandmother Family history of malignant neoplasm of breast (V16.3) (Z80.3) Aunt Family history of malignant neoplasm of breast (V16.3) (Z80.3) Social History Problems No alcohol use No illicit drug use Non-smoker (V49.89) (Z78.9) Sexually active Allergies Medication Sulfa Drugs Recorded By: Aida Agudelo; 11/09/2020 11:46:14 AM Current Meds Medication NameInstruction TABS Vitals Vital Signs Recorded: 27Jan2022 02:31PM Odnvlnal029 Pesnskpum32 Height5 ft 7 in Rydyvi00.6 kg BMI Gnzojsweck97.97 kg/m2 BSA Calculated2.04 [id number] Physical Exam PHYSICAL EXAMINATION: Well-developed, well nourished, in no acute distress, alert and oriented x three, is pleasant and cooperative. HEENT: Clear. Pupils equal, round and reactive to light and accommodation. Extraocular muscles are intact. Oral mucosa pink without exudate. NECK: No lymphadenopathy, no thyromegaly. LUNGS: Clear bilaterally. HEART: Regular rate and rhythm without murmurs. ABDOMEN: Normoactive bowel sounds, soft and nontender, no guarding or rebound tenderness, no CVA tenderness. EXTREMITIES: No clubbing, cyanosis or edema. NEUROLOGIC: Cranial nerves II-XII grossly intact. : Normal external female genitalia, normal vulva, normal vagina. Normal urethral meatus, urethra and bladder. Vaginal ultrasound shows a live intrauterine at 7 weeks 6 days gestation which is consistent with LMP. EDC is September 10, 2022. Results/Data IO HCG, Urine [id number] 02:31PIsha Peck Medline hCG [id number] Chloe:08/22/2023 Test NameResultFlagReference IO Urine hCGPositiveA Signatures Electronically signed by : Isha Osei MD; Jan 27 2022 2:44PM EST (Author) Normal Touchworks LMPon 12-16-2021 Last menstrual period start date 06Dec2021 [facility] [address] Work Phone: ORTHO NURSE - Office Visiton 11-21 ORTHO NURSE - Office Visit Diagnoses/Problems Assessed Infertility Provider Impressions 1) infertility-unclear etiology potentially multifactorial. Patient with pelvic pain and has not been diagnosed with endometriosis but is on the differential. Patient ovulating regularly discussed that is unlikely the culprit. Discussed tubal factor as potential. Discussed potential HSG in the future. Reviewed ovulation kits she is taking home and timing for intimacy. Which seems to be doing. Patient greater than 1 year without achieving . Reviewed semen analysis with some low volume but good concentration mobility. Borderline normal morphology of the sperm. A little bit of leukocytes noted in the sample as well. notes that there may be little bit delay as far as masturbation with a sample. Counseled given the greater than 1 year without achieving patient very interested in achieving would recommend follow-up with infertility and an KANE consult. Discussed there are some question about abstinence prior to semen analysis to repeat. Prescription given to repeat semen analysis and refer to KANE for further management Chief Complaint PT HERE TODAY TO GO OVER RESULTS. PT HAS NO CONCERNS AT THIS TIME. LMP 12/06/21 History of Present Lwlwpjo84-hxbf-ouk presents to my office for concern for infertility related to go over her 's semen analysis. There was initial issue that they were on each other's hip so was brought in today to correct hip with documentation and have a discussion. Patient know she is ovulating somewhere between day 12 and day 17. Patient working on diet and exercise. Patient has conceive another child previously. Patient is no acute concerns Review of Systems Constitutional: No fevers, chills Eye:no vision changes Respiratory: no SOB Cardiovascular: no chest pain Gastrointestinal: No nausea, vomiting, diarrhea, constipation, abdominal pain Genitourinary:no dysuria Gynecology: See HPI Active Problems Problems Abnormal uterine bleeding (AUB) (626.9) (N93.9) Bacterial vaginosis (616.10,041.9) (N76.0,B96.89) Female pelvic pain (625.9) (R10.2) Menorrhagia with regular cycle (626.2) (N92.0) Negative test (V72.41) (Z32.02) Pelvic pain in female (625.9) (R10.2) Screening for breast cancer (V76.10) (Z12.39) Screening for cervical cancer (V76.2) (Z12.4) Women's annual routine gynecological examination (V72.31) (Z01.419) Past Medical History Problems History of Menstruation Onset age 10 years History of Normal vaginal delivery (650) (O80) 04/25/2018_40weeks 2days_Female_7# 4oz History of Pap test, as part of routine gynecological examination (V76.2) (Z01.419) 09/10/2017: Negative Surgical History Problems History of Dilation and curettage January, History of Hysteroscopy 02-10-2021 Family History Mother Family history of malignant neoplasm of breast (V16.3) (Z80.3) Family history of osteoporosis (V17.81) (Z82.62) Family history of renal cell carcinoma (V16.51) (Z80.51) Father Family history of hypertension (V17.49) (Z82.49) Grandmother Family history of malignant neoplasm of breast (V16.3) (Z80.3) Aunt Family history of malignant neoplasm of breast (V16.3) (Z80.3) Social History Problems No alcohol use No illicit drug use Non-smoker (V49.89) (Z78.9) Sexually active Allergies Medication Sulfa Drugs Recorded By: Aida Agudelo; 11/09/2020 11:46:14 AM Current Meds Medication NameInstruction TABS Vitals Vital Signs Recorded: 16Dec2021 03:02PM Vpuigyql124 Waujbuuul49 Height5 ft 7 in Vmfhns618 lb 11.76 oz BMI Oseekftwlm44.28 kg/m2 BSA Calculated2.02 [id number] Physical Exam General: None acute distress Eye: Intraocular movements are intact HEENT: Normocephalic Cardiovascular: Regular rate Respiratory: Respirations are nonlabored Gastrointestinal: Nondistended Musculoskeletal: Normal range of motion Neurologic: Alert and oriented x3 Psychiatric: Cooperative appropriate mood and affect. Signatures Electronically signed by : Pérez Bell DO; Dec 16 2021 4:14PM EST (Author) Normal Touchworks LMPon 07-12-2021 Last menstrual period start date 18Jun2021 [facility] [address] Work Phone: Progesterone, Serumon 2020 Progesterone [Mass/Vol] 12.1 ng/mL [facility] [address] Phone: Comment on above: REF VALUESMALE <0.3- 1.2 FOLLICULAR PHASE <0.3- 1.4 LUTEAL PHASE 3.3-25.6 MID-LUTEAL PHASE 4.4-28.0POSTMENOPAUSAL <0.3- 0.7 FEMALES: 1ST TRIMESTER 11.2- 90.0 2ND TRIMESTER 25.6- 89.4 3RD TRIMESTER 48.4-422.5 .Patients receiving DHEA-S supplements may show false elevation ofprogesterone for results near 1.0 ng/mL. Contact laboratory [phone] if alternative testing is needed. LMPon 06-21-2021 Last menstrual period start date 18Jun2021 [facility] [address] Work Phone: [phone] Laboratory - Chemistry and C hemistry - challengeon 06-21-2021 Follitropin Qn 8.3 {IU/L} [facility] [address] Work Phone: Comment on above: REF VALUESFOLLICULAR 4-33VFE-YDCUD 12-25LUTEAL PHASE 2-12MENOPAUSE 30-150PREPUBERTY 50% ADULTADULT MALE 2-10INFANTS 0-1 Lutropin Qn 6.1 {IU/L} [facility] Work Phone: Comment on above: REF VALUESFOLLICULAR PHASE 1.9-12.5MID-CYCLE 8.7-76.3LUTEAL PHASE 0.5-16.9POST MENOPAUSE 5.0-55.2CHILDREN 0- 6.0ADULT MALE 18-70 1.5- 9.3ADULT MALE >70 3.1-34.6 TSH Qn 2.88 m[IU]/L See Below [facility] [address] Work Phone: Comment on above: Reference Range: 0.4 4 - 3.98 TSH testing is performed using different testing methodology at [facility] than at other [facility]. Direct result comparisons should only be made within the same method. Testosterone, Levelon 2020 Testosterone [Mass/Vol] ng/dL 0 - 70 [facility] [address] Work Phone: Comment on above: Nandrolone decanoate , 11 Beta-hydroxytestosterone, androstenedione, testosterone propionate and 07-msbk-zuxhbhdozaqt strongly cross react with this test method. Biotin interference may cause falsely elevated results. Patients taking a Biotin dose of up to 5 mg/day should refrain from taking Biotin for 24 hours before sample collection. Providers may contact their local laboratory for further information. Testing by a more sensitive method (Testosterone Total LC-MS/MS) is recommended for accurate quantification of testosterone levels less than 60 ng/dL. No Panel Informationon 02-10 [facility] [address] Work Phone: Coronavirus 2019 RNA by PCR, Screening Asymptomticon 02-07-2021 Coronavirus 2019 RNA by PCR, Screening Asymptomtic Not detected Normal See Below [facility] [address] Work Phone: Comment on above: SOURCE: Nasal, Nasop haryngealReference Range: Not Detected.This assay is designed to detect the N, ORF1ab and/or S genes of SARS-CoV-2 via nucleic acid amplification. A Negative (NOT DETECTED) result does not preclude 2019-nCoV infection since the adequacy of sample collection and/or low viral burden may result in presence of viral nucleic acids below the clinical sensitivity of this test method. Negative (NOT DETECTED) result should not be used as the sole basis for treatment or other patient management decisions. Rather negative results should be combined with clinical observations, patient history, and epidemiological information to make patient management decisions.Fact sheet for providers: https://www.fda.gov/media/063280/downloadFact sheet for patients: https://www.fda.gov/media/052158/downloadThis test has received FDA Emergency Use Authorization (EUA) and has been verified by [facility] ([facility]). This test is only authorized for the duration of time that circumstances exist to justify the authorization of the emergency use of in vitro diagnostic tests for the detection of SARS-CoV-2 virus and/or diagnosis of COVID-19 infection under section 564(b)(1) of the Act, 21 U.S.C. 360bbb-3(b)(1), unless the authorization is terminated or revoked sooner. [facility] is certified under CLIA-88 as qualified to perform high complexity testing. Testing is performed in the [facility] laboratories located at [address] [place] [address]. HCG, Serum - Qualitativeon 0 02-07-2021 HCG ( test) Ql Negative Negative [facility] [address] Work Phone: [phone] Laboratory - Blood bankon ABO group Nom (Bld) [facility] [address] Work Phone: [phone] Blood group antibody screen Ql Negative [facility] [address] Work Phone: [phone] Rh immune globulin screen (Bld) [Interp] Positive [facility] [address] Work Phone: [phone] Laboratory - Chemistry and C hemistry - challengeon 02-07-2021 Anion gap [Moles/Vol] 10 mmol/L 10 - 20 [facility] [address] Work Phone: [phone] Calcium [Mass/Vol] 9.0 mg/dL 8.6 - 10.3 [facility] [address] Work Phone: [phone] Chloride [Moles/Vol] 105 mmol/L 98 - 107 [facility] [address] Work Phone: [phone] CO2 [Moles/Vol] 27 mmol/L 21 - 32 [facility] [address] Work Phone: [phone] Creatinine [Mass/Vol] 0.81 mg/dL See Below [facility] [address] Work Phone: [phone] Comment on above: Reference Range: 0.5 0 - 1.05 Glucose [Mass/Vol] 102 mg/dL above high threshold 74 - 99 [facility] [address] Work Phone: [phone] Potassium [Moles/Vol] 4.3 mmol/L 3.5 - 5.3 [facility] [address] Work Phone: [phone] Sodium [Moles/Vol] 138 mmol/L 136 - 145 [facility] [address] Work Phone: [phone] Urea nitrogen [Mass/Vol] 15 mg/dL 6 - 23 [facility] [address] Work Phone: [phone] Laboratory - Hematology and Cell countson 02-07-2021 Erythrocyte distribution width (RBC) [Ratio] 12.7 % See Below [facility] [address] Work Phone: [phone] Comment on above: Reference Range: 11. 5 - 14.5 Hematocrit (Bld) [Volume fraction] 39.8 % See Below [facility] [address] Work Phone: [phone] Comment on above: Reference Range: 36. 0 - 46.0 Hemoglobin (Bld) [Mass/Vol] 13.4 g/dL See Below [facility] [address] Work Phone: [phone] Comment on above: Reference Range: 12. 0 - 16.0 MCHC (RBC) [Mass/Vol] 33.7 g/dL See Below [facility] [address] Work Phone: [phone] Comment on above: Reference Range: 32. 0 - 36.0 MCV (RBC) [Entitic vol] 91 fL 80 - 100 [facility] [address] Work Phone: [phone] Platelets (Bld) [#/Vol] 211 10*3/uL 150 - 450 [facility] [address] Work Phone: [phone] RBC (Bld) [#/Vol] 4.38 {x10E12/L} See Below [facility] [address] Work Phone: [phone] Comment on above: Reference Range: 4.0 0 - 5.20 WBC (Bld) [#/Vol] 4.7 10*3/uL 4.4 - 11.3 [facility] [address] Work Phone: [phone] No Panel Informationon 02-07 >60 >60 [facility] [address] Work Phone: [phone] Comment on above: CALCULATIONS OF PETER MATED GFR ARE PERFORMED USING THE MDRD STUDY EQUATION FOR THE IDMS-TRACEABLE CREATININE METHODS. CLIN CHEM 2007;53:766-72 LMPon 01-26-2021 Last menstrual period start date 02Jan2021 [facility] [address] Work Phone: No Panel Informationon 01-18 Normal [facility] [address] Work Phone: Placenta Pathology Request - NO EXAMon 04-29-2018 Placenta Pathology Request - NO EXAM Collected Normal [facility] Comment on above: Performed By: #### 9 [id number] ####PADMINI Basilioc Micro SubSection, Auto Diffon 04-26-2018 Basophils #/vol (Bld) 0.1 E3/mcL Normal 0.0-0.2 [facility] Comment on above: Order Comment: Order Added by Discern Expert. Performed By: #### 2 [id number] ####PADMINI [address] [place] [address] Basophils/100 WBC (Bld) 0.7 % Normal 0.0-2.0 [facility] Comment on above: Order Comment: Order Added by Discern Expert. Performed By: #### 2 [id number] ####PADMINI MancillaDzvSurf22[address] [place] [address] Eos Absolute 0.1 E3/mcL Normal 0.0-0.7 [facility] Comment on above: Order Comment: Order Added by Discern Expert. Performed By: #### 2 [id number] ####PADMINI [address] [place] [address] Eosinophils/100 WBC (Bld) 0.6 % Normal 0.0-11.0 [facility] Comment on above: Order Comment: Order Added by Discern Expert. Performed By: #### 2 [id number] ####PADMINI MancillaHxrQrrh9375 [place] [address] Lymphocytes #/vol (Bld) 2.5 E3/mcL Normal 1.2-3.4 [facility] Comment on above: Order Comment: Order Added by Discern Expert. Performed By: #### 2 [id number] ####PADMINI MancillaOccLsjb2274 [place] [address] Lymphocytes/100 WBC (Bld) 15.2 % Low 20.0-55.0 [facility] Comment on above: Order Comment: Order Added by Discern Expert. Performed By: #### 2 [id number] ####PADMINI [address] [place] [address] [place] Absolute 1.1 E3/mcL High 0.0-0.7 [facility] Comment on above: Order Comment: Order Added by Discern Expert. Performed By: #### 2 073048 ####PADMINI [address] [place] [address] Monocytes/100 WBC (Bld) 6.9 % Normal 0.0-10.0 [facility] Comment on above: Order Comment: Order Added by Discern Expert. Performed By: #### 2 [id number] ####PADMINI [address] [place] [address] Neutro Absolute 12.7 E3/mcL High 1.4-6.5 [facility] Comment on above: Order Comment: Order Added by Discern Expert. Performed By: #### 2 746381 ####PADMINI [address] [place] [address] Neutro Auto 76.6 % High 37.0-75.0 [facility] Comment on above: Order Comment: Order Added by Discern Expert. Performed By: #### 2 [id number] ####PADMINI [address] [place] [address] CBC w/ Auto Diffon 8 Erythrocyte distribution width Ratio (RBC) 13.9 % Normal 11.5-14.5 [facility] Comment on above: Performed By: #### 2 363466 ####PADMINI [address] [place] [address] Hematocrit Volume Fraction (Bld) 32.6 % Low 36.0-48.0 [facility] Comment on above: Performed By: #### 2 231169 ####PADMINI [address] [place] [address] Hemoglobin mass conc (Bld) 11.0 g/dL Low 12.0-16.0 [facility] Comment on above: Performed By: #### 2 [id number] ####PADMINI [address] [place] [address] MCH Entitic mass (RBC) 32.1 pg High 27.0-31.0 [facility] Comment on above: Performed By: #### 2 031304 ####PADMINI MancillaNaqWbgm1528 [place] [address] MCHC mass conc (RBC) 33.7 g/dL Normal 33.0-37.0 [facility] Comment on above: Performed By: #### 2 515747 ####PADMINI MancillaYlfTnwi1907 [place] [address] MCV Entitic volume (RBC) 95.4 fL Normal 78.0-100.0 [facility] Comment on above: Performed By: #### 2 373263 ####PADMINI MancillaMjkYwte4605 [place] [address] Platelet mean volume Entitic volume (Bld) 8.3 fL Normal 7.4-11.0 [facility] Comment on above: Performed By: #### 2 854852 ####PADMINI MancillaCabUalu[address]010 [place] [address] Platelets #/vol (Bld) 158 E3/mcL Normal 130-400 [facility] Comment on above: Performed By: #### 2 [id number] ####PADMINI MancillaRurKwlg3775 [place] [address] RBC #/vol (Bld) 3.41 E6/mcL Low 3.90-5.40 [facility] Comment on above: Performed By: #### 2 672412 ####PADMINI MancillaTxaYeyf8618 [place] [address] WBC #/vol (Bld) 16.6 E3/mcL High 3.6-11.0 [facility] Comment on above: Performed By: #### 2 197163 ####PADMINI MancillaNuxSwbs7503 [place] [address] Auto Diffon 04-24-2018 Basophils #/vol (Bld) 0.1 E3/mcL Normal 0.0-0.2 [facility] Comment on above: Order Comment: Order Added by Discern Expert. Performed By: #### 2 063626 ####PADMINI MancillaPupEavo9427 [place] [address] Basophils/100 WBC (Bld) 0.8 % Normal 0.0-2.0 [facility] Comment on above: Order Comment: Order Added by Discern Expert. Performed By: #### 2 194814 ####PADMINI DmgSbkv6711 [place] [address] Eos Absolute 0.1 E3/mcL Normal 0.0-0.7 [facility] Comment on above: Order Comment: Order Added by Discern Expert. Performed By: #### 2 810732 ####PADMINI FnmUnso2064 [place] [address] Eosinophils/100 WBC (Bld) 1.4 % Normal 0.0-11.0 [facility] Comment on above: Order Comment: Order Added by Discern Expert. Performed By: #### 2 443596 ####PADMINI DmxMkrt5132 [place] [address] Lymphocytes #/vol (Bld) 1.6 E3/mcL Normal 1.2-3.4 [facility] Comment on above: Order Comment: Order Added by Discern Expert. Performed By: #### 2 835775 ####PADMINI TykFbna6597 [place] [address] Lymphocytes/100 WBC (Bld) 17.5 % Low 20.0-55.0 [facility] Comment on above: Order Comment: Order Added by Discern Expert. Performed By: #### 2 842377 ####PADMINI YkiTaob[address]11 [place] [address] Wilson Absolute 0.6 E3/mcL Normal 0.0-0.7 [facility] Comment on above: Order Comment: Order Added by Discern Expert. Performed By: #### 2 344961 ####PADMINI KfjSxfr1163 [place] [address] Monocytes/100 WBC (Bld) 6.3 % Normal 0.0-10.0 [facility] Comment on above: Order Comment: Order Added by Discern Expert. Performed By: #### 2 339408 ####PADMINI AskXzsa8673 [place] [address] Neutro Absolute 6.9 E3/mcL High 1.4-6.5 [facility] Comment on above: Order Comment: Order Added by Discern Expert. Performed By: #### 2 099611 ####PADMINI MancillaDbiYutr6359 [place] [address] Neutro Auto 74.0 % Normal 37.0-75.0 [facility] Comment on above: Order Comment: Order Added by Discern Expert. Performed By: #### 2 843209 ####PADMINI [address] [place] [address] CBC w/ Auto Diffon 8 Erythrocyte distribution width Ratio (RBC) 13.5 % Normal 11.5-14.5 [facility] Comment on above: Performed By: #### 2 951269 ####PADMINI [address] [place] [id number] Hematocrit Volume Fraction (Bld) 33.1 % Low 36.0-48.0 [facility] Comment on above: Performed By: #### 2 885023 ####PADMINI [address] [place] [address] Hemoglobin mass conc (Bld) 11.4 g/dL Low 12.0-16.0 [facility] Comment on above: Performed By: #### 2 056149 ####PADMINI [address] [place] [address] MCH Entitic mass (RBC) 32.6 pg High 27.0-31.0 [facility] Comment on above: Performed By: #### 2 713706 ####PADMINI [address] [place] [address] MCHC mass conc (RBC) 34.5 g/dL Normal 33.0-37.0 [facility] Comment on above: Performed By: #### 2 633607 ####PADMINI [address] [place] [address] MCV Entitic volume (RBC) 94.4 fL Normal 78.0-100.0 [facility] Comment on above: Performed By: #### 2 167112 ####PADMINI MancillaQxsCrkp8701 [place] [address] Platelet mean volume Entitic volume (Bld) 8.1 fL Normal 7.4-11.0 [facility] Comment on above: Performed By: #### 2 367625 ####PADMINI MancillaGicIdtw[address] [place] [address] Platelets #/vol (Bld) 164 E3/mcL Normal 130-400 [facility] Comment on above: Performed By: #### 2 556741 ####PADMINI GvtSpto1494 [place] [address] RBC #/vol (Bld) 3.50 E6/mcL Low 3.90-5.40 [facility] Comment on above: Performed By: #### 2 205404 ####PADMINI PbeLuvl6410 [place] [address] WBC #/vol (Bld) 9.3 E3/mcL Normal 3.6-11.0 [facility] Comment on above: Performed By: #### 2 479848 ####PADMINI MancillaPcjXszm2910 [place] [address] Group B Strep PCRon 03-25-20 18 Group B Strep PCR Negative Normal [facility] Comment on above: Order Comment: For p ositive results only; Penicillin is the recommended antibiotic for the treatment of Group B Streptococcal disease. In case of penicillin allergy, Clindamycin may be used.All Negative GBS Screens by PCR will be confirmed by culture. Performed By: #### 2 [id number] ####PADMINI Microbiology [address]ebblj[address] [place] [address] .PN Glucose 1 Hron 8 Glucose mass conc 175 mg/dL Normal <=180 [facility] Comment on above: Performed By: #### 1 [id number] #### PADMINIEliezer MancillaChem [address] [place] [address] .PN Glucose 2 Hron 8 Glucose mass conc 145 mg/dL Normal <=155 [facility] Comment on above: Performed By: #### 1 [id number] #### PADMINI RemChem [address] [place] [address] .PN Glucose 3 Hron 8 Glucose mass conc 112 mg/dL Normal <=140 [facility] Comment on above: Performed By: #### 1 [id number] #### PADMINI RemChem [address] [place] [address] .PN Glucose Fastingon 2017 Glucose mass conc 80 mg/dL Normal <=95 [facility] Comment on above: Performed By: #### 1 [id number] #### PADMINI RemChem [address] [place] [address] Glucose POCon 01-16-2018 Glucose mass conc 72 mg/dL Normal 70-99 [facility] Comment on above: Performed By: #### 5 [id number] #### PADMINI POC Subsection [address] [place] [address] Auto Diffon 01-15-2018 Basophils #/vol (Bld) 0.1 E3/mcL Normal 0.0-0.2 [facility] Comment on above: Order Comment: Order Added by Discern Expert. Performed By: #### 2 596986 #### PADMINI RemHemo [address] [place] [address] Basophils/100 WBC (Bld) 0.5 % Normal 0.0-2.0 [facility] Comment on above: Order Comment: Order Added by Discern Expert. Performed By: #### 2 227759 #### PADMINI RemHemo [address] [place] [address] Eos Absolute 0.1 E3/mcL Normal 0.0-0.7 [facility] Comment on above: Order Comment: Order Added by Discern Expert. Performed By: #### 2 [id number] #### PADMINI RemHemo [address] [place] [address] Eosinophils/100 WBC (Bld) 0.7 % Normal 0.0-11.0 [facility] Comment on above: Order Comment: Order Added by Discern Expert. Performed By: #### 2 041793 #### PADMINI RemHemo [address] [place] [address] Lymphocytes #/vol (Bld) 1.8 E3/mcL Normal 1.2-3.4 [facility] Comment on above: Order Comment: Order Added by Discern Expert. Performed By: #### 2 912927 #### PADMINI RemHemo [address] [place] [address] Lymphocytes/100 WBC (Bld) 14.8 % Low 20.0-55.0 [facility] Comment on above: Order Comment: Order Added by Discern Expert. Performed By: #### 2 949169 #### PADMINI MancillaHemo [address] [place] [address] [place] Absolute 0.6 E3/mcL Normal 0.0-0.7 [facility] Comment on above: Order Comment: Order Added by Discern Expert. Performed By: #### 2 530707 #### PADMINI MancillaHemo [address] [place] [address] Monocytes/100 WBC (Bld) 5.1 % Normal 0.0-10.0 [facility] Comment on above: Order Comment: Order Added by Discern Expert. Performed By: #### 2 416797 #### PADMINI MancillaHemo [address] [place] [id number] Neutro Absolute 9.4 E3/mcL High 1.4-6.5 [facility] Comment on above: Order Comment: Order Added by Discern Expert. Performed By: #### 2 015535 #### PADMINI MancillaHemo [address] [place] [address] Neutro Auto 78.9 % High 37.0-75.0 [facility] Comment on above: Order Comment: Order Added by Discern Expert. Performed By: #### 2 096019 #### PADMINI MancillaHemo [address] [place] 4455305 CBC w/ Auto Diffon 8 Erythrocyte distribution width Ratio (RBC) 13.3 % Normal 11.5-14.5 [facility] Comment on above: Performed By: #### 2 962937 #### PADMINI MancillaHemo [address] [place], [place] [id number] Hematocrit Volume Fraction (Bld) 34.0 % Low 36.0-48.0 [facility] Comment on above: Performed By: #### 2 367388 #### PADMINI MancillaHemo [address] [place] 4455305 Hemoglobin mass conc (Bld) 11.6 g/dL Low 12.0-16.0 [facility] Comment on above: Performed By: #### 2 971867 #### PADMINI MancillaHemo [address] [place] 4455305 MCH Entitic mass (RBC) 32.0 pg High 27.0-31.0 [facility] Comment on above: Performed By: #### 2 111468 #### PADMINI RemHemo [address] [place] [address] MCHC mass conc (RBC) 34.2 g/dL Normal 33.0-37.0 [facility] Comment on above: Performed By: #### 2 242096 #### PADMINI RemHemo [address] [place] 4[address]305 MCV Entitic volume (RBC) 93.5 fL Normal 78.0-100.0 [facility] Comment on above: Performed By: #### 2 847803 #### PADMINI RemHemo [address] [place] [address] Platelet mean volume Entitic volume (Bld) 8.0 fL Normal 7.4-11.0 [facility] Comment on above: Performed By: #### 2 190073 #### PADMINI RemHemo [address] [place] [address] Platelets #/vol (Bld) 199 E3/mcL Normal 130-400 [facility] Comment on above: Performed By: #### 2 388213 #### PADMINI RemHemo [address] [place] [address] RBC #/vol (Bld) 3.63 E6/mcL Low 3.90-5.40 [facility] Comment on above: Performed By: #### 2 680823 #### PADMINI RemHemo [address] [place] [address] WBC #/vol (Bld) 11.9 E3/mcL High 3.6-11.0 [facility] Comment on above: Performed By: #### 2 394169 #### PADMINI RemHemo [address] [place] [address] Gest Scr Glu 1 Hron 01-16-20 18 Glucose mass conc 173 mg/dL High 70-140 [facility] Comment on above: Performed By: #### 3 [id number] #### PADMINI RemChem [address] [place] [address] US After 1st Trime steron 12-11-2017 US After 1st Trimester Exam Date/Time: 12/10/2017 14:27 EDT Reason for Exam: DATES & ANATOMY;Standard Anatomy Report HISTORY: anatomy. OBSTETRIC SONOGRAM 12/10/2017 COMPARISON STUDY: Pelvic ultrasound 10/10/2017. TECHNIQUE: Multiple sagittal and transverse images of the lower abdomen and pelvis were obtained. Grayscale, color, and M-mode Doppler was utilized. FINDINGS: The cervix is closed with length estimated at 6.4 cm. Anteverted gravid appearing uterus contains single fetus and demonstrates cephalic presentation. The placenta is located posteriorly. The echogenicity is relatively homogeneous. No obvious previa or abruption. Inferior edge of the placenta to internal os measures 3.2 cm. Female gender of the fetus identified. heart rate is 145 bpm. Estimated gestational age per ultrasound 20 weeks and 5 days with estimated due date 04/24/2018. Biparietal diameter 4.93 cm, 20 weeks and 6 days. Head circumference 17.49 cm, 20 weeks and 0 days. Abdominal circumference 16.10 cm, 21 weeks and 1 day. Femur length 3.59 cm, 21 weeks and 3 days. Estimated weight 402 g; 14 ounces; 60th percentile. Head circumference/abdominal circumference ratio 1.09. Size appears to be appropriate for dates. ANATOMY: Triple vessel cord, stomach, kidneys, spine, bladder, head/neck, four-chamber heart, and caval septum pellucidum identified. IMPRESSION: 1. Anteverted gravid appearing uterus containing single live fetus with estimated gestational age per ultrasound 20 weeks and 5 days and estimated due date of 04/24/2018. 2. Posterior placenta without previa or abruption. Cervix is closed. 3. No gross anomaly identified. Amniotic fluid volume appears to be Exam Date/Time: 12/10/2017 14:27 EDT Report within normal limits. FINAL REPORT Dictated: 12/11/2017 5:57 am Magdy Soto MD Signed (Electronic Signature): 12/11/2017 5:57 am Signed by: Magdy Soto MD Technologist: HAILEY Normal [facility] AFP Tetra Profileon 11-25-19 18 AFP TP AFP Mom Value 0.72 [facility] Comment on above: Performed By: #### 1 [id number] #### [facility] Send Outs Subsection [address] [place] [address] AFP TP AFP Kalie EIA 25.9 ng/mL [facility] Comment on above: Performed By: #### 1 [id number] #### PADMINI Send Outs Subsection [address] [place] [address] AFP TP Comments: Comment [facility] Comment on above: Result Comment: Beatrice Farooq, Ph.D., [facility] Principal Genetics Assistant Activities Director References: Available Upon Request. Multiples Of Median Cutoffs Abbreviation Definitions For AFP Elevations IDD- Insulin Dep Diabetes Bell 2.5 Black 2.8 OSBR- Open Spina Bifida IDD 2.0 Twins 4.5 Risk DSR Cutoff 1:270 DSR- Down Syndrome Risk T18 Cutoff 1:100 T18- Trisomy 18 Down Syndrome and Trisomy 18 screening are considered Investigational For further inquiries contact [facility] at [phone]. Performed At: [facility] [address] [facility], [place] [id number] Karen Esparza MD Ph:[phone] Performed By: #### 1 [id number] #### PADMINI Send Outs Subsection [address] [place] [address] AFP TP KALEY Mom Value 1.69 [facility] Comment on above: Performed By: #### 1 [id number] #### PADMINI Send Outs Subsection [address] [place] [address] AFP TP KALEY Value EIA 242.67 pg/mL [facility] Comment on above: Performed By: #### 1 [id number] #### PADMINI Send Outs Subsection [facility] [place] [address] AFP TP DSR 2nd Times 1IN 639 [facility] Comment on above: Performed By: #### 1 [id number] #### PADMINI Send Outs Subsection [facility] [place] [address] AFP TP DSR(by Age) 1IN 1074 [facility] Comment on above: Performed By: #### 1 [id number] #### PADMINI Send Outs Subsection [facility] [place] [address] AFP TP [place] [employer] [facility] Comment on above: Result Comment: 18.0 on 11/20/2017 Performed By: #### 1 [id number] #### PADMINI Send Outs Subsection [facility] [place] [address] AFP TP Gest Age 18.0 week(s) [facility] Comment on above: Performed By: #### 1 [id number] #### PADMINI Send Outs Subsection [facility] [place] [address] AFP TP hCG Mom 2.74 [facility] Comment on above: Performed By: #### 1 [id number] #### PADMINI Send Outs Subsection [address] [place] [address] AFP TP Insulin Dep Diabetes No [facility] Comment on above: Performed By: #### 1 [id number] #### PADMINI Send Outs Subsection [address] [place] [address] AFP TP Interp Comment [facility] Comment on above: Result Comment: Inte rpretation: Screen Negative This result is screen negative for OSB, Down Syndrome and Trisomy 18. The AFP MoM and patient specific risks calculated are based on the gestational age and the clinical information provided. This test can identify up to 80% of open neural tube defects. Closed neural tube defects and some open defects may not be detected by this test. The combination of maternal age, AFP, hCG, uE3, and KALEY identifies 75-80% of Down Syndrome. The combination of maternal age, AFP, hCG and uE3 identifies 60% of Trisomy 18 pregnancies. The [place] [employer] recommends amniocentesis be offered to women age 35 and older. Recalculations are not recommended when gestational dating by LMP and ultrasound are within 10 days. Performed By: #### 1 [id number] #### PADMINI Send Outs Subsection [address] [place] [address] AFP TP Mat Age TIGIST 23.9 [facility] Comment on above: Performed By: #### 1 [id number] #### PADMINI Send Outs Subsection [address] [place] [address] AFP TP Mult Gest No [facility] Comment on above: Performed By: #### 1 [id number] #### PADMINI Send Outs Subsection [address] [place] [address] AFP TP OSBR Risk 1 [place] [address] [facility] Comment on above: Performed By: #### 1 [id number] #### PADMINI Send Outs Subsection [address] [place] [address] AFP TP Race Normal [facility] Comment on above: Performed By: #### 1 [id number] #### PADMINI Send Outs Subsection [address] [place] [address] AFP TP T18 (By Age) Not increased Normal [facility] Comment on above: Performed By: #### 1 [id number] #### PADMINI Send Outs Subsection [address] [place] [address] AFP TP T18 Risk 1:4185 Normal [facility] Comment on above: Performed By: #### 1 [id number] #### PADMINI Send Outs Subsection [facility] [place] [address] AFP TP Test Results: Negative [facility] Comment on above: Performed By: #### 1 [id number] #### PADMINI Send Outs Subsection [facility] [place] [address] AFP TP uE3 Mom 1.41 [facility] Comment on above: Performed By: #### 1 [id number] #### PADMINI Send Outs Subsection [facility] [place] [address] AFP TP uE3 Value 1.66 ng/mL [facility] Comment on above: Performed By: #### 1 [id number] #### PADMINI Send Outs Subsection [facility] [place] [address] [place] [address] m[IU]/mL [facility] Comment on above: Performed By: #### 1 [id number] #### PADMINI Send Outs Subsection [facility] [place] [address] CBC with Diffon 10-10-2017 Basophils Auto #/vol (Bld) 0.0 K/mcL Normal 0-0.2 [facility] Comment on above: Performed By: #### C BCDIF, PT, PTT, CMET ####Unless otherwise noted, all testing performed by [facility] [place] [address] [place], [place] [phone]: [id number] Director: Pranav Lowe M.D. Basophils/100 WBC Auto (Bld) 0.6 % Normal [facility] Comment on above: Performed By: #### C BCDIF, PT, PTT, CMET ####Unless otherwise noted, all testing performed by [place] [phone]: [id number] Director: Pranav Lowe M.D. Eosinophils 0.0 K/mcL Normal 0-0.5 [facility] Comment on above: Performed By: #### C BCDIF, PT, PTT, CMET ####Unless otherwise noted, all testing performed by [address]CLIA: [id number] Director: Pranav Lowe M.D. Eosinophils/100 leukocytes 0.5 % Normal [facility] Comment on above: Performed By: #### C BCDIF, PT, PTT, CMET ####Unless otherwise noted, all testing performed by [address]CLIA: [id number] Director: Pranav Lowe M.D. Erythrocyte distribution width Auto Ratio (RBC) 13.0 % Normal 10.0-14.4 [facility] Comment on above: Performed By: #### C BCDIF, PT, PTT, CMET ####Unless otherwise noted, all testing performed by [address]CLIA: [id number] Director: Pranav Lowe M.D. Erythrocytes (RBC) 3.71 M/mcL Normal 3.7-5.0 [facility] Comment on above: Performed By: #### C BCDIF, PT, PTT, CMET ####Unless otherwise noted, all testing performed by [address] [phone]: [id number] Director: Pranav Lowe M.D. Hematocrit (HCT) 33.3 % Low 34.4-44.8 [facility] Comment on above: Performed By: #### C BCDIF, PT, PTT, CMET ####Unless otherwise noted, all testing performed by [address] [phone]: [id number] Director: Pranav Lowe M.D. Hemoglobin mass conc (Bld) 11.7 g/dL Normal 11.6-15.4 [facility] Comment on above: Performed By: #### C BCDIF, PT, PTT, CMET ####Unless otherwise noted, all testing performed by [address] [phone]: [id number] Director: Pranav Lowe M.D. Lymphocytes 1.6 K/mcL Normal 1.0-3.7 [facility] Comment on above: Performed By: #### C BCDIF, PT, PTT, CMET ####Unless otherwise noted, all testing performed by [address] [phone]: [id number] Director: Pranav Lowe M.D. Lymphocytes/100 leukocytes 19.7 % Normal [facility] Comment on above: Performed By: #### C BCDIF, PT, PTT, CMET ####Unless otherwise noted, all testing performed by [address] [phone]: [id number] Director: Pranav Lowe M.D. MCH 31.5 pg Normal 27.9-33.9 [facility] Comment on above: Performed By: #### C BCDIF, PT, PTT, CMET ####Unless otherwise noted, all testing performed by [address] [phone]: [id number] Director: Pranav Lowe M.D. MCHC mass conc (RBC) 35.0 g/dL Normal 33.1-35.1 [facility] Comment on above: Performed By: #### C BCDIF, PT, PTT, CMET ####Unless otherwise noted, all testing performed by [address] [phone]: [id number] Director: Pranav Lowe M.D. MCV 89.9 fL Normal 82.6-98.9 [facility] Comment on above: Performed By: #### C BCDIF, PT, PTT, CMET ####Unless otherwise noted, all testing performed by [address] [phone]: [id number] Director: Pranav Lowe M.D. Monocytes 0.6 K/mcL Normal 0.1-0.6 [facility] Comment on above: Performed By: #### C BCDIF, PT, PTT, CMET ####Unless otherwise noted, all testing performed by [address] [phone]: [id number] Director: Pranav Lowe M.D. Monocytes/100 leukocytes 7.9 % Normal [facility] Comment on above: Performed By: #### C BCDIF, PT, PTT, CMET ####Unless otherwise noted, all testing performed by [place] [phone]: [id number] Director: Pranav Lowe M.D. Neutrophils 5.6 K/mcL Normal 1.2-6.9 [facility] Comment on above: Performed By: #### C BCDIF, PT, PTT, CMET ####Unless otherwise noted, all testing performed by [place] [id number]: [id number] Director: Pranav Lowe M.D. Platelet mean volume (PMV) 8.0 fL Normal 7.0-10.6 [facility] Comment on above: Performed By: #### C BCDIF, PT, PTT, CMET ####Unless otherwise noted, all testing performed by [address] [phone]: [id number] Director: Pranav Lowe M.D. Platelets 189 K/mcL Normal 162-402 [facility] Comment on above: Performed By: #### C BCDIF, PT, PTT, CMET ####Unless otherwise noted, all testing performed by [address] [phone]: [id number] Director: Pranav Lowe M.D. Segmented Neut % 71.3 % Normal [facility] Comment on above: Performed By: #### C BCDIF, PT, PTT, CMET ####Unless otherwise noted, all testing performed by [facility] [address] [phone]: [id number] Director: Pranav Lowe M.D. WBC (Leukocytes) 7.9 K/mcL Normal 3.4-10.6 [facility] Comment on above: Performed By: #### C BCDIF, PT, PTT, CMET ####Unless otherwise noted, all testing performed by [address] [phone]: [id number] Director: Pranav Lowe M.D. [facility] 10-10-2017 Alanine aminotransferase (ALT) 16 U/L Normal 14-65 [facility] Comment on above: Result Comment: This test result might be falsely depressed or falsely elevated onsamples drawn from patients taking Sulfasalazine and Sulfapyridine.Venipuncture should occur prior to taking either of these drugs. Performed By: #### C BCDIF, PT, PTT, CMET ####Unless otherwise noted, all testing performed by [address] [phone]: [id number] Director: Pranav Lowe M.D. Albumin 3.4 g/dL Normal 3.2-5.2 [facility] Comment on above: Performed By: #### C BCDIF, PT, PTT, CMET ####Unless otherwise noted, all testing performed by [address] [phone]: [id number] Director: Pranav Lowe M.D. Alkaline phosphatase (ALP) 49 U/L Normal 40-140 [facility] Comment on above: Performed By: #### C BCDIF, PT, PTT, CMET ####Unless otherwise noted, all testing performed by [address] [phone]: [id number] Director: Pranav Lowe M.D. Aspartate aminotransferase (AST) 13 U/L Normal 0-45 [facility] Comment on above: Result Comment: This test result might be falsely depressed or falsely elevated onsamples drawn from patients taking Sulfasalazine and Sulfapyridine.Venipuncture should occur prior to taking either of these drugs. Performed By: #### C BCDIF, PT, PTT, CMET ####Unless otherwise noted, all testing performed by [address] [phone]: [id number] Director: Pranav Lowe M.D. Bilirubin (total) 0.3 mg/dL Normal 0.3-1.2 [facility] Comment on above: Performed By: #### C BCDIF, PT, PTT, CMET ####Unless otherwise noted, all testing performed by [address] [phone]: [id number] Director: Pranav Lowe M.D. Calcium 8.2 mg/dL Low 8.4-10.2 [facility] Comment on above: Performed By: #### C BCDIF, PT, PTT, CMET ####Unless otherwise noted, all testing performed by [address] [phone]: [id number] Director: Pranav Lowe M.D. Chloride 105 mmol/L Normal 98-108 [facility] Comment on above: Performed By: #### C BCDIF, PT, PTT, CMET ####Unless otherwise noted, all testing performed by [address] [phone]: [id number] Director: Pranav Lowe M.D. CO2 22 mmol/L Normal 21-32 [facility] Comment on above: Performed By: #### C BCDIF, PT, PTT, CMET ####Unless otherwise noted, all testing performed by [address] [phone]: [id number] Director: Pranav Lowe M.D. Creatinine 0.71 mg/dL Normal 0.40-1.10 [facility] Comment on above: Performed By: #### C BCDIF, PT, PTT, CMET ####Unless otherwise noted, all testing performed by [address] [phone]: [id number] Director: Pranav Lowe M.D. eGFR (black) mL/min/{1.73_m2} Normal [facility] Comment on above: Result Comment: Afri can [place] GFR Calc Performed By: #### C BCDIF, PT, PTT, CMET ####Unless otherwise noted, all testing performed by [address] [phone]: [id number] Director: Pranav Lowe M.D. eGFR (non-black) mL/min/{1.73_m2} Normal [facility] Comment on above: Result Comment: Non- GFR CalceGFR is an estimated Glomerular Filtration Rate based on the valueof the patient's serum creatinine. In outpatients, eGFR should be usedas a helpful tool in screening for CKD. In inpatients or patients withacute renal failure, eGFR represents the GFR at the moment of the drawand should be used with caution. Performed By: #### C BCDIF, PT, PTT, CMET ####Unless otherwise noted, all testing performed by [address] [phone]: [id number] Director: Pranav Lowe M.D. Glucose mass conc 73 mg/dL Normal 70-99 [facility] Comment on above: Result Comment: This test result might be falsely depressed or falsely elevated onsamples drawn from patients taking Sulfasalazine and Sulfapyridine.Venipuncture should occur prior to taking either of these drugs. Performed By: #### C BCDIF, PT, PTT, CMET ####Unless otherwise noted, all testing performed by [place] [phone]: [id number] Director: Pranav Lowe M.D. Potassium molar conc 3.9 mmol/L Normal 3.5-5.1 [facility] Comment on above: Performed By: #### C BCDIF, PT, PTT, CMET ####Unless otherwise noted, all testing performed by [address] [phone]: [id number] Director: Pranav Lowe M.D. Protein 7.3 g/dL Normal 6.0-8.0 [facility] Comment on above: Performed By: #### C BCDIF, PT, PTT, CMET ####Unless otherwise noted, all testing performed by [address] [phone]: [id number] Director: Pranav Lowe M.D. Sodium 138 mmol/L Normal 135-145 [facility] Comment on above: Performed By: #### C BCDIF, PT, PTT, CMET ####Unless otherwise noted, all testing performed by [address] [phone]: [id number] Director: Pranav Lowe M.D. Urea nitrogen 10 mg/dL Normal 8-25 [facility] Comment on above: Performed By: #### C BCDIF, PT, PTT, CMET ####Unless otherwise noted, all testing performed by [address] [phone]: [id number] Director: Pranav Lowe M.D. Partial Thromboplastin Timeo n 10-10-2017 aPTT 25 s Normal 23.0-34.0 [facility] Comment on above: Result Comment: Luz Marina ludwig therapeutic range for PTT is 68-104 sec. Performed By: #### C BCDIF, PT, PTT, CMET ####Unless otherwise noted, all testing performed by [address] [phone]: [id number] Director: Pranav Lowe M.D. Protimeon 10-10-2017 INR Coag RelTime (PPP) 0.94 {INR} Normal [facility] Comment on above: Result Comment: The [place] [employer] recommended therapeutic rangefor Warfarin (Coumadin) therapy goals:PROPHYLAXIS/TREATMENT of:INRVenous Thrombosis, Pulmonary Embolism2.0-3.0Prevention of VTE (Orthopedic Surgery)2.0-3.0Atrial Fibrillation2.0-3.0Myocardial Infarction2.0-3.0Mechanical Prosthetic Heart Valves (Aortic position)2.0-3.0Mechanical Prosthetic Heart Valves (Mitral Position)2.5-3.5American College of Chest Physicians evidence-based clinical practiceguidelines. CHEST. 2012 (9th ed) Performed By: #### C BCDIF, PT, PTT, CMET ####Unless otherwise noted, all testing performed by [address] [phone]: [id number] Director: Pranav Lowe M.D. Prothrombin time (PT) Coag time (PPP) 12.3 s Normal 11.8-14.3 [facility] Comment on above: Performed By: #### C BCDIF, PT, PTT, CMET ####Unless otherwise noted, all testing performed by [address] [phone]: [id number] Director: Pranav oLwe M.D. Rh Immune Globulin Panelon 0 10-10-2017 Rh Immune Globulin Panel Negative Normal [facility] Comment on above: Performed By: #### R HIG ####Unless otherwise noted, all testing performed by [address] [phone]: [id number] Director: Pranav Lowe M.D. US OB 1ST TRIM SNGLE OR 1ST GESTon 10-10-2017 US OB 1ST TRIM SNGLE OR 1ST GEST Final ReportAccession No: [id number] Performed: Oct 10 2017 4:32PMExamination: US OB 1ST TRIM SNGLE OR 1ST GESTHISTORY: Vaginal bleeding.COMPARISON: None.FINDINGS: A transvaginal ultrasound exam shows a single viableintrauterinegestat ion with a mean EGA of about 12 weeks 1 day and TIGIST on 04/23/2018. Asmall3.3 x 1.1 x 0.3 cm subchorionic hemorrhage of anechogenicity is present.Theamount of amniotic fluid is normal. heart rate is 170 BPM. Theovariesappear normal with the right measuring 4.0 x 1.5 x 1.5 cm and the left,3.2 x2.4 x 1.8 cm. No free fluid is demonstrated.IMPRESSION: Single viable intrauterine gestation with a mean EGA of about 12 weeks 1dayand TIGIST on April 23, 2018.A small 3.3 x 1.1 x 0.3 cm subchorionic hemorrhage.Interpreting Physician: MAIRA MOBLEY M.D.Trans: bminni : cc: Normal [facility] Urinalysis, Routineon 2017 Bilirubin,Urine Negative Normal NEG;NEGATIVE [facility] Comment on above: Performed By: #### U A ####Unless otherwise noted, all testing performed by [address] [phone]: [id number] Director: Pranav Lowe M.D. Blood,Urine Small Abnormal NEG;NEGATIVE [facility] Comment on above: Performed By: #### U A ####Unless otherwise noted, all testing performed by [address] [phone]: [id number] Director: Pranav Lowe M.D. Ketone,Urine Negative Normal NEG;NEGATIVE [facility] Comment on above: Performed By: #### U A ####Unless otherwise noted, all testing performed by [address] [phone]: [id number] Director: Pranav Lowe M.D. Leuk.Esterase,Urine Negative Normal Negative [facility] Comment on above: Performed By: #### U A ####Unless otherwise noted, all testing performed by [address] [phone]: [id number] Director: Pranav Lowe M.D. Nitrite,Urine Negative Normal NEG;NEGATIVE [facility] Comment on above: Performed By: #### U A ####Unless otherwise noted, all testing performed by [address] [phone]: [id number] Director: Pranav Lowe M.D. Protein,Urine Negative Normal NEG;NEGATIVE [facility] Comment on above: Performed By: #### U A ####Unless otherwise noted, all testing performed by [place] [id number]: [id number] Director: Pranav Lowe M.D. Specific [place],Urine 1.006 Normal 1.003-1.029 [facility] Comment on above: Performed By: #### U A ####Unless otherwise noted, all testing performed by [place] [id number]: [id number] Director: Pranav Lowe M.D. Urine, character Clear Normal [facility] Comment on above: Performed By: #### U A ####Unless otherwise noted, all testing performed by [address] [phone]: [id number] Director: Pranav Lowe M.D. Urine, color Yellow Normal [facility] Comment on above: Performed By: #### U A ####Unless otherwise noted, all testing performed by [address] [phone]: [id number] Director: Pranav Lowe M.D. Urine, erythrocytes in sediment by area /[HPF] Normal 0-5 [facility] Comment on above: Performed By: #### U A ####Unless otherwise noted, all testing performed by [address] [phone]: [id number] Director: Pranav Lowe M.D. Urine, glucose presence Negative Normal NEG;NEGATIVE [facility] Comment on above: Performed By: #### U A ####Unless otherwise noted, all testing performed by [place] [id number]: [id number] Director: Pranav Lowe M.D. Urine, leukocytes in sedmiment /[HPF] Normal 0-5 [facility] Comment on above: Performed By: #### U A ####Unless otherwise noted, all testing performed by [place] [id number]: [id number] Director: Pranav Lowe M.D. Urine, pH 6.0 [pH] Normal 4.5-8.0 [facility] Comment on above: Performed By: #### U A ####Unless otherwise noted, all testing performed by [address] [phone]: [id number] Director: Pranav Lowe M.D. Urobilinogen,Urine < 2.0 Normal <2 [facility] Comment on above: Performed By: #### U A ####Unless otherwise noted, all testing performed by [place] [id number]: [id number] Director: Pranav Lowe M.D. Vital Signs Date Time Vital Sign Value Performing Clinician Facility 05-11-2025 14:32-0400 Body height 170.18 cm Johana Hightower CNM Work Phone: [place] 05-11-2025 14:32-0400 Body mass index (BMI) [Ratio] 36.6 kg/m2 Johana Hightower CNM Work Phone: [place] 05-11-2025 14:32-0400 Body weight 106.28 kg Johana Hightower CNM Work Phone: [place] 05-11-2025 14:32-0400 Diastolic blood pressure 84 mm[Hg] Johana Hightower CNM Work Phone: [place] 05-11-2025 14:32-0400 Systolic blood pressure 125 mm[Hg] Johana CHAMBERSM Work Phone: [place] 04-20-2025 08:31-0400 Body height 170.18 cm Johana Hightower CNM Work Phone: [place] 04-20-2025 08:31-0400 Body mass index (BMI) [Ratio] 34.9 kg/m2 Johana Hightower CNM Work Phone: [place] 04-20-2025 08:31-0400 Body weight 101.23 kg Johana Hightower CNM Work Phone: [place] 04-20-2025 08:31-0400 Diastolic blood pressure 78 mm[Hg] Johana Hightower CNM Work Phone: [place] 04-20-2025 08:31-0400 Systolic blood pressure 128 mm[Hg] Johana Hightower CNM Work Phone: [place] 03-19-2025 15:09-0400 Body height 170.18 cm Latisha Vega NP-C Work Phone: [place] 03-19-2025 15:09-0400 Body mass index (BMI) [Ratio] 33.8 kg/m2 Latisha Elka Park FINAL INSPECTOR TRUCK TRAILER-C Work Phone: [place] 03-19-2025 15:09-0400 Body weight 98.11 kg Latisha [place] FINAL INSPECTOR TRUCK TRAILER-C Work Phone: [place] 03-19-2025 15:09-0400 Diastolic blood pressure 84 mm[Hg] Latisha Gary FINAL INSPECTOR TRUCK TRAILER-C Work Phone: [place] 03-19-2025 15:09-0400 Systolic blood pressure 120 mm[Hg] Latisha [place] FINAL INSPECTOR TRUCK TRAILER-C Work Phone: [place] 02-19-2025 14:41-0400 Body height 170.18 cm Latisha Gary FINAL INSPECTOR TRUCK TRAILER-C Work Phone: [place] 02-19-2025 14:41-0400 Body mass index (BMI) [Ratio] 32.3 kg/m2 Latisha Gary FINAL INSPECTOR TRUCK TRAILER-C Work Phone: [phone] [place] [address] 02-19-2025 14:41-0400 Body weight 93.66 kg Latisha Gary FINAL INSPECTOR TRUCK TRAILER-C Work Phone: [phone] [place] [address] 02-19-2025 14:41-0400 Diastolic blood pressure 83 mm[Hg] Latisha [place] FINAL INSPECTOR TRUCK TRAILER-C Work Phone: [phone] [place] [address] 02-19-2025 14:41-0400 Systolic blood pressure 124 mm[Hg] Latisha Gary FINAL INSPECTOR TRUCK TRAILER-C Work Phone: [place] 01-28-2025 14:53-0400 Body height 170.18 cm Latisha Gary FINAL INSPECTOR TRUCK TRAILER-C Work Phone: [phone] [place] [address] 01-28-2025 14:53-0400 Body mass index (BMI) [Ratio] 32.1 kg/m2 Latisha Gary FINAL INSPECTOR TRUCK TRAILER-C Work Phone: [place] 01-28-2025 14:53-0400 Body weight 92.98 kg Latisha [place] Park FINAL INSPECTOR TRUCK TRAILER-C Work Phone: [phone] [place] [address] 01-28-2025 14:53-0400 Diastolic blood pressure 91 mm[Hg] Latisha Vega FINAL INSPECTOR TRUCK TRAILER-C Work Phone: [place] 01-28-2025 14:53-0400 Systolic blood pressure 138 mm[Hg] Latisha Vega FINAL INSPECTOR TRUCK TRAILER-C Work Phone: [place] 05-23-2024 15:34-0400 Body height 170.2 cm Peyton Londonman PRINT BINDING WORKER-[employer]PERATIONS SUPERVISOR Work Phone: [facility] 05-23-2024 15:34-0400 Body mass index (BMI) [Ratio] 30.64 kg/m2 Peyton Starla PRINT BINDING WORKER-[employer] OPERATIONS SUPERVISOR Work Phone: [facility] 05-23-2024 15:34-0400 Body weight 88.72 kg Peyton Starla PRINT BINDING WORKER-AIR [employer] OPERATIONS SUPERVISOR Work Phone: [facility] 05-23-2024 15:34-0400 Diastolic blood pressure 76 mm[Hg] Peyton Starla PRINT BINDING WORKER-A[employer] OPERATIONS SUPERVISOR Work Phone: [facility] 05-23-2024 15:34-0400 Heart rate 75 /min Peyton Satrla PRINT BINDING WORKER-[employer] OPERATIONS SUPERVISOR Work Phone: [facility] 05-23-2024 15:34-0400 Systolic blood pressure 112 mm[Hg] Peyton Starla PRINT BINDING WORKER-[employer] OPERATIONS SUPERVISOR Work Phone: [facility] 11-01-2023 10:04-0400 Body height 170.2 cm Lindsay Fried PRINT BINDING WORKER-CNM, PRINT BINDING WORKER-[employer] OPERATIONS SUPERVISOR, DNP Work Phone: [facility] 11-01-2023 10:04-0400 Body mass index (BMI) [Ratio] 32.73 kg/m2 Lindsay Fried PRINT BINDING WORKER-CNM, PRINT BINDING WORKER-[employer] OPERATIONS SUPERVISOR, DNP Work Phone: [facility] 11-01-2023 10:04-0400 Body weight 94.8 kg Lindsay Fried PRINT BINDING WORKER-CNM, PRINT BINDING WORKER-[employer] OPERATIONS SUPERVISOR, DNP Work Phone: [facility] 11-01-2023 10:04-0400 Diastolic blood pressure 74 mm[Hg] Lindsay Fried PRINT BINDING WORKER-CNM, PRINT BINDING WORKER-[employer] OPERATIONS SUPERVISOR, DNP Work Phone: [facility] 11-01-2023 10:04-0400 Systolic blood pressure 126 mm[Hg] Lindsay Fried PRINT BINDING WORKER-CNM, PRINT BINDING WORKER-AIR [employer] OPERATIONS SUPERVISOR, DNP Work Phone: [facility] 09-26-2023 16:30-0500 Body temperature 98.4 [degF] Moose Eric Jr., DPM Work Phone: [facility] 09-26-2023 16:30-0500 Diastolic blood pressure 79 mm[Hg] Moose Eric Jr., DPM Work Phone: [facility] 09-26-2023 16:30-0500 Heart rate 71 /min Moose Eric Jr., DPM Work Phone: [facility] 09-26-2023 16:30-0500 Systolic blood pressure 124 mm[Hg] Moose Eric Jr., DPM Work Phone: [facility] 08-07-2023 15:56-0500 Body temperature 98.2 [degF] Saurabh Marilyn DPM Work Phone: [facility] 08-07-2023 15:56-0500 Diastolic blood pressure 86 mm[Hg] Saurabh [place] DPM Work Phone: [facility] 08-07-2023 15:56-0500 Heart rate 82 /min Saurabh [place] DPM Work Phone: [facility] 08-07-2023 15:56-0500 Systolic blood pressure 122 mm[Hg] Saurabh Marilyn DPM Work Phone: [facility] 07-31-2023 14:17-0500 Body temperature 98.2 [degF] Saurabh Marilyn DPM Work Phone: [facility] 07-31-2023 14:17-0500 Diastolic blood pressure 85 mm[Hg] Saurabh Marilyn DPM Work Phone: [facility] 07-31-2023 14:17-0500 Heart rate 81 /min Saurabh Marilyn DPM Work Phone: [facility] 07-31-2023 14:17-0500 Systolic blood pressure 129 mm[Hg] Saurabh Marilyn DPM Work Phone: [facility] 07-24-2023 15:28-0500 Body temperature 98.2 [degF] Saurabh Marilyn DPM Work Phone: [facility] 07-24-2023 15:28-0500 Diastolic blood pressure 63 mm[Hg] Saurabh Marilyn DPM Work Phone: [facility] 07-24-2023 15:28-0500 Heart rate 80 /min Saurabh [place] DPM Work Phone: [facility] 07-24-2023 15:28-0500 Systolic blood pressure 121 mm[Hg] Saurabh Marilyn DPM Work Phone: [facility] 10-02-2022 14:47-0400 Body height 170.18 cm Niall Rodriguez Work Phone: [facility] [employer] Work Phone: 10-02-2022 14:47-0400 Body mass index (BMI) [Ratio] 35.71 kg/m2 Niall Rodriguez Work Phone: [place] [address] [place] Work Phone: 10-02-2022 14:47-0400 Body surface area Derived from formula 2.14 m2 Niall Rodriguez Work Phone: [employer] [employer] Work Phone: 10-02-2022 14:47-0400 Body weight 103.42 kg Niall Rodriguez Work Phone: [place] [address] [place] Work Phone: 10-02-2022 14:47-0400 Diastolic blood pressure 70 mm[Hg] Niall Rodriguez Work Phone: [place] [address] [address] Work Phone: 10-02-2022 14:47-0400 Systolic blood pressure 132 mm[Hg] Niall Rodriguez Work Phone: [place] [address] [address] Work Phone: 09-06-2022 11:52-0500 Body temperature 96.98 [degF] Naill Rodriguez Other Phone: [facility] 09-06-2022 11:52-0500 Diastolic blood pressure 80 mm[Hg] Niall Rodriguez Other Phone: [facility] 09-06-2022 11:52-0500 Heart rate 79 /min Niall Rodriguez Other Phone: [facility] 09-06-2022 11:52-0500 Respiratory rate 12 /min Niall Rodriguez Other Phone: [facility] 09-06-2022 11:52-0500 SaO2% (BldA) [Mass fraction] 97 % Niall Rodriguez Other Phone: [facility] 09-06-2022 11:52-0500 Systolic blood pressure 134 mm[Hg] Niall Rodriguez Other Phone: [facility] 08-28-2022 15:04-0500 Body height 170.18 cm Niall Rodriguez Work Phone: [place] [address] [address] Work Phone: 08-28-2022 15:04-0500 Body mass index (BMI) [Ratio] 39.78 kg/m2 Niall Rodriguez Work Phone: [place] [address] [address] Work Phone: 08-28-2022 15:04-0500 Body surface area Derived from formula 2.24 m2 Niall Hardyey Work Phone: [place] [address] [address] Work Phone: 08-28-2022 15:04-0500 Body weight 115.2 kg Niall Hardyey Work Phone: [place] [address] [place] Work Phone: 08-28-2022 15:04-0500 Diastolic blood pressure 70 mm[Hg] Niall Hardyey Work Phone: [place] [address] [address] Work Phone: 08-28-2022 15:04-0500 Systolic blood pressure 122 mm[Hg] Niall Hardyey Work Phone: [place] [address] [place] Work Phone: 08-22-2022 13:09-0500 Body height 170.18 cm Niall Hardyey Work Phone: [place] [address] [place] Work Phone: 08-22-2022 13:09-0500 Body mass index (BMI) [Ratio] 39.71 kg/m2 Niall Hardyey Work Phone: [address] Work Phone: 08-22-2022 13:09-0500 Body surface area Derived from formula 2.24 m2 Niall Hardyey Work Phone: [place] [address] [address] Work Phone: 08-22-2022 13:09-0500 Body weight 115 kg Niall Hardyey Work Phone: [place] [address] [address] Work Phone: 08-22-2022 13:09-0500 Diastolic blood pressure 68 mm[Hg] Niall Hardyey Work Phone: [place] [address] [address] Work Phone: 08-22-2022 13:09-0500 Systolic blood pressure 120 mm[Hg] Niall Hardyey Work Phone: [place] [address] [address] Work Phone: 08-15-2022 13:16-0500 Body height 170.18 cm Niall Hardyey Work Phone: [place] [address] [address] Work Phone: 08-15-2022 13:16-0500 Body mass index (BMI) [Ratio] 39.12 kg/m2 Niall Hardyey Work Phone: [place] [address] [address] Work Phone: 08-15-2022 13:16-0500 Body surface area Derived from formula 2.22 m2 Niall Rodriguez Work Phone: [address] Work Phone: 08-15-2022 13:16-0500 Body weight 113.3 kg Niall Hardyey Work Phone: [place] [address] [place] Work Phone: 08-15-2022 13:16-0500 Diastolic blood pressure 74 mm[Hg] Niall Hardyey Work Phone: [place] [address] [address] Work Phone: 08-15-2022 13:16-0500 Systolic blood pressure 120 mm[Hg] Niall Hardyey Work Phone: [place] [address] [place] Work Phone: 08-08-2022 11:34-0500 Body height 170.18 cm Niall Hardyey Work Phone: [place] [address] [address] Work Phone: 08-08-2022 11:34-0500 Body mass index (BMI) [Ratio] 38.98 kg/m2 Niall Hardyey Work Phone: [place] [address] [address] Work Phone: 08-08-2022 11:34-0500 Body surface area Derived from formula 2.22 m2 Niall Hardyey Work Phone: [place] [address] [place] Work Phone: 08-08-2022 11:34-0500 Body weight 112.9 kg Niall Hardyey Work Phone: [place] [address] [address] Work Phone: 08-08-2022 11:34-0500 Diastolic blood pressure 72 mm[Hg] Niall Hardyey Work Phone: [place] [address] [place] Work Phone: 08-08-2022 11:34-0500 Systolic blood pressure 122 mm[Hg] Niall Hardyey Work Phone: [address] Work Phone: 07-25-2022 11:01-0500 Body height 170.18 cm Niall Hardyey Work Phone: [address] Work Phone: 07-25-2022 11:01-0500 Body mass index (BMI) [Ratio] 37.81 kg/m2 Niall Rodriguez Work Phone: [address] Work Phone: 07-25-2022 11:01-0500 Body surface area Derived from formula 2.19 m2 Niall Hardyey Work Phone: [place] [address] [place] Work Phone: 07-25-2022 11:01-0500 Body weight 109.5 kg Niall Rodriguez Work Phone: [place] [address] [place] Work Phone: 07-25-2022 11:01-0500 Diastolic blood pressure 68 mm[Hg] Niall Rodriguez Work Phone: [place] [address] [place] Work Phone: 07-25-2022 11:01-0500 Systolic blood pressure 122 mm[Hg] Niall Rodriguez Work Phone: [address] Work Phone: 07-10-2022 11:38-0500 Body height 170.18 cm Niall Rodriguez Work Phone: [place] [address] [place] Work Phone: 07-10-2022 11:38-0500 Body mass index (BMI) [Ratio] 37.39 kg/m2 Niall Rodriguez Work Phone: [address] Work Phone: 07-10-2022 11:38-0500 Body surface area Derived from formula 2.18 m2 Niall Rodriguez Work Phone: [address] Work Phone: 07-10-2022 11:38-0500 Body weight 108.3 kg Niall Rodriguez Work Phone: [address] Work Phone: 07-10-2022 11:38-0500 Diastolic blood pressure 66 mm[Hg] Niall Rodriguez Work Phone: [address] Work Phone: 07-10-2022 11:38-0500 Systolic blood pressure 124 mm[Hg] Niall Rodriguez Work Phone: [place] [address] [address] Work Phone: 06-26-2022 11:43-0500 Body height 170.18 cm Niall Rodriguez Work Phone: [place] [address] [address] Work Phone: 06-26-2022 11:43-0500 Body mass index (BMI) [Ratio] 37.77 kg/m2 Niall Rodriguez Work Phone: [address] Work Phone: 06-26-2022 11:43-0500 Body surface area Derived from formula 2.19 m2 Niall Hardyey Work Phone: [address] Work Phone: 06-26-2022 11:43-0500 Body weight 109.4 kg Niall Hardyey Work Phone: [address] Work Phone: 06-26-2022 11:43-0500 Diastolic blood pressure 66 mm[Hg] Niall Rodriguez Work Phone: [address] Work Phone: 06-26-2022 11:43-0500 Systolic blood pressure 112 mm[Hg] Niall Rodriguez Work Phone: [address] Work Phone: 05-29-2022 13:35-0500 Body height 170.18 cm Niall Rodriguez Work Phone: [address] Work Phone: 05-29-2022 13:35-0500 Body mass index (BMI) [Ratio] 36.01 kg/m2 Niall Rodriguez Work Phone: [address] Work Phone: 05-29-2022 13:35-0500 Body surface area Derived from formula 2.15 m2 Niall Rodriguez Work Phone: [place] [address] [place] Work Phone: 05-29-2022 13:35-0500 Body weight 104.3 kg Niall Rodriguez Work Phone: [place] [address] [address] Work Phone: 05-29-2022 13:35-0500 Diastolic blood pressure 64 mm[Hg] Niall Hardyey Work Phone: [place] [address] [place] Work Phone: 05-29-2022 13:35-0500 Systolic blood pressure 122 mm[Hg] Niall Hardyey Work Phone: [place] [address] [address] Work Phone: 05-01-2022 10:40-0400 Body height 170.18 cm Niall Hardyey Work Phone: [place] [address] [address] Work Phone: 05-01-2022 10:40-0400 Body mass index (BMI) [Ratio] 34.39 kg/m2 Niall Hardyey Work Phone: [place] [address] [place] Work Phone: 05-01-2022 10:40-0400 Body surface area Derived from formula 2.1 m2 Niall Hardyey Work Phone: [place] [address] [address] Work Phone: 05-01-2022 10:40-0400 Body weight 99.6 kg Niall Hardyey Work Phone: [place] [address] [address] Work Phone: 05-01-2022 10:40-0400 Diastolic blood pressure 68 mm[Hg] Niall Hardyey Work Phone: [place] [address] [address] Work Phone: 05-01-2022 10:40-0400 Systolic blood pressure 122 mm[Hg] Niall Hardyey Work Phone: [place] [address] [address] Work Phone: 03-31-2022 14:09-0400 Body height 170.18 cm No PCP None [place] [address] [place] Work Phone: 03-31-2022 14:09-0400 Body mass index (BMI) [Ratio] 33.56 kg/m2 No PCP None [facility] [address] [place] Work Phone: 03-31-2022 14:09-0400 Body surface area Derived from formula 2.08 m2 No PCP None [facility] Work Phone: 03-31-2022 14:09-0400 Body weight 97.2 kg No PCP None [facility] [address] [place] Work Phone: 03-31-2022 14:09-0400 Diastolic blood pressure 64 mm[Hg] No PCP None [facility] [place] Work Phone: 03-31-2022 14:09-0400 Systolic blood pressure 118 mm[Hg] No PCP None [facility] Work Phone: 03-03-2022 14:49-0400 Body height 170.18 cm No PCP None [facility] Work Phone: 03-03-2022 14:49-0400 Body mass index (BMI) [Ratio] 31.9 kg/m2 No PCP None [facility] Work Phone: 03-03-2022 14:49-0400 Body surface area Derived from formula 2.04 m2 No PCP None [facility] [facility] Work Phone: 03-03-2022 14:49-0400 Body weight 92.4 kg No PCP None [facility] [facility] [place] Work Phone: 03-03-2022 14:49-0400 Diastolic blood pressure 64 mm[Hg] No PCP None [facility] Work Phone: 03-03-2022 14:49-0400 Systolic blood pressure 114 mm[Hg] No PCP None [facility] [place] Work Phone: 01-27-2022 14:31-0400 Body height 170.18 cm No PCP None [facility] [place] Work Phone: 01-27-2022 14:31-0400 Body mass index (BMI) [Ratio] 31.97 kg/m2 No PCP None [facility] [place] Work Phone: 01-27-2022 14:31-0400 Body surface area Derived from formula 2.04 m2 No PCP None [facility] [place] Work Phone: 01-27-2022 14:31-0400 Body weight 92.6 kg No PCP None [facility] [address] [place] Work Phone: 01-27-2022 14:31-0400 Diastolic blood pressure 74 mm[Hg] No PCP None [facility] [place] Work Phone: 01-27-2022 14:31-0400 Systolic blood pressure 116 mm[Hg] No PCP None [facility] [place] Work Phone: 12-16-2021 15:02-0400 Body height 170.18 cm No PCP None [facility] [place] Work Phone: 12-16-2021 15:02-0400 Body mass index (BMI) [Ratio] 31.28 kg/m2 No PCP None [facility] [place] Work Phone: 12-16-2021 15:02-0400 Body surface area Derived from formula 2.02 m2 No PCP None [facility] [place] Work Phone: 12-16-2021 15:02-0400 Body weight 90.6 kg No PCP None [facility] [address] [place] Work Phone: 12-16-2021 15:02-0400 Diastolic blood pressure 72 mm[Hg] No PCP None [facility] [place] Work Phone: 12-16-2021 15:02-0400 Systolic blood pressure 118 mm[Hg] No PCP None [facility] [place] Work Phone: 07-12-2021 11:08-0500 Body height 170.18 cm No PCP None [facility] [address] [place] Work Phone: 07-12-2021 11:08-0500 Body mass index (BMI) [Ratio] 32.34 kg/m2 No PCP None [facility] [address] [place] Work Phone: 07-12-2021 11:08-0500 Body surface area Derived from formula 2.05 m2 No PCP None [facility] [address] [place] Work Phone: 07-12-2021 11:08-0500 Body temperature 96.9 [degF] No PCP None [facility] [address] [place] Work Phone: 07-12-2021 11:08-0500 Body weight 93.67 kg No PCP None [facility] [address] [place] Work Phone: 07-12-2021 11:08-0500 Diastolic blood pressure 80 mm[Hg] No PCP None [facility] [address] [place] Work Phone: 07-12-2021 11:08-0500 Systolic blood pressure 110 mm[Hg] No PCP None [facility] [address] [place] Work Phone: 06-21-2021 11:12-0500 Body height 170.18 cm No PCP None [facility] [address] [place] Work Phone: 06-21-2021 11:12-0500 Body mass index (BMI) [Ratio] 32.7 kg/m2 No PCP None [facility] [address] [place] Work Phone: 06-21-2021 11:12-0500 Body surface area Derived from formula 2.06 m2 No PCP None [facility] [address] [place] Work Phone: 06-21-2021 11:12-0500 Body temperature 96.8 [degF] No PCP None [facility] [address] [place] Work Phone: 06-21-2021 11:12-0500 Body weight 94.7 kg No PCP None [facility] [address] [place] Work Phone: 06-21-2021 11:12-0500 Diastolic blood pressure 80 mm[Hg] No PCP None [facility] [address] [place] Work Phone: 06-21-2021 11:12-0500 Systolic blood pressure 118 mm[Hg] No PCP None [facility] [place] Work Phone: 01-26-2021 14:51-0400 Body height 170.18 cm No PCP None [facility] [address] [place] Work Phone: 01-26-2021 14:51-0400 Body mass index (BMI) [Ratio] 33.77 kg/m2 No PCP None [facility] [place] Work Phone: 01-26-2021 14:51-0400 Body surface area Derived from formula 2.09 m2 No PCP None [facility] [place] Work Phone: 01-26-2021 14:51-0400 Body temperature 96.9 [degF] No PCP None [facility] [place] Work Phone: 01-26-2021 14:51-0400 Body weight 97.8 kg No PCP None [facility] [place] Work Phone: 01-26-2021 14:51-0400 Diastolic blood pressure 80 mm[Hg] No PCP None [facility] [place] Work Phone: 01-26-2021 14:51-0400 Systolic blood pressure 120 mm[Hg] No PCP None [facility] [place] Work Phone: 11-09-2020 13:42-0400 Body height 170.18 cm Pérez Yauco DO [facility] [address] [place] Work Phone: 11-09-2020 13:42-0400 Body mass index (BMI) [Ratio] 33.25 kg/m2 Pérez Ray DO [facility] [address] [place] Work Phone: 11-09-2020 13:42-0400 Body surface area Derived from formula 2.07 m2 Pérez Bell DO [facility] [address] [place] Work Phone: 11-09-2020 13:42-0400 Body temperature 97.1 [degF] Pérez Bell DO [facility] [address] [place] Work Phone: Comment on above: Method: Temporal 11-09-2020 13:42-0400 Body weight 96.3 kg Pérez Bell DO [facility] d [address] [place] Work Phone: 11-09-2020 13:42-0400 Diastolic blood pressure 80 mm[Hg] Pérez Bell DO [facility] [address] [place] Work Phone: Comment on above: Location: LUE; Position: Sitting 11-09-2020 13:42-0400 Systolic blood pressure 120 mm[Hg] Pérez Bell DO [facility] [address] [place] Work Phone: Comment on above: Location: LUE; Position: Sitting 11-24-2017 06:07-0400 Body weight Measured 88.9056 kg Pérez Ray [facility] Comment on above: Performed By: #### [id number] #### [place] [address] Encounters Encounter Date Encounter Type Care Provider Facility Start: 05-28-2025 End: 05-28-2025 ambulatory PEYTON Zepeda [facility] Start: 05-11-2025 End: 05-11-2025 Patient encounter procedure Johana Hightower [facility] -[facility] Work Phone: Start: 05-11-2025 End: 05-11-2025 ambulatory Johana Hightower Facility:[facility] Start: 04-28-2025 End: 04-28-2025 ambulatory SARAH Campoverde [facility] Start: 04-20-2025 End: 04-20-2025 Patient encounter procedure Latisha PATEL -[facility] Work Phone: Start: 04-20-2025 End: 04-20-2025 ambulatory Johana Hightower CNM Work Phone: -[facility] Start: 04-20-2025 End: 04-20-2025 ambulatory Johana Hightower Facility:[place] Start: 03-19-2025 End: 03-19-[address] Silke Burnett MD -[facility] Work Phone: Start: 03-19-2025 End: 03-19-2025 ambulatory Silke Burnett -[facility] Start: 02-19-2025 End: 02-19-2025 ambulatory Latisha Vega NP-C Work Phone: -Laboratory Specimen Start: 02-19-2025 End: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 Unknown [id number] 2.16.840.1.998839.3.579.2. 462 Unknown [id number] 2.16.840.1.058528.3.579.2. 462 Unknown [id number] 2.16.840.1.545391.3.579.2. 462 Unknown [id number] 2.16.840.1.183051.3.579.2. 462 Unknown [id number] 2.16.840.1.229727.3.579.2. 462 Social History Date Type Detail Facility Assertion Tobacco smoking consumption unknown (finding) [facility] [address] Work Phone: Start: 01-02-2019 End: 09-26-2023 Sexually active Sexually active [facility] [address] Phone: Tobacco smoking consumption unknown [facility] Start: 07-24-2023 End: 05-23-2024 Tobacco smoking status NHIS Never smoked tobacco [facility] Start: 07-24-2023 End: 05-23-2024 Tobacco use and exposure Smokeless tobacco non-user [facility] Start: 07-24-2023 End: 09-26-2023 Alcohol intake Current drinker of alcohol (finding) [facility] Start: 01-02-2019 End: 09-26-2023 Tobacco use panel [place] Start: 09-10-2017 Alcohol Comment socially [facility] Start: 1995 Sex Assigned At Not on file [facility] Start: 09-10-2017 Gender identity Identifies as female gender (finding) [facility] Start: 09-10-2017 Sexual orientation Heterosexual (finding) [facility] Start: 10-22-2023 End: 05-23-2024 Exposure to SARS-CoV-2 (event) Not sure [facility] Start: 05-23-2024 Alcoholic beverage intake Lifetime non-drinker (finding) [facility] Work Phone: Start: 1995 Sex Assigned At Female [place] Start: 01-30-2025 End: 01-30-2025 Tobacco smoking status NHIS Ex-smoker (finding) [place] Functional Status Date Assessment Result Facility Functional observable [facility] NEGATED: Highlighted row Functional performance Functional status health issues are not documented Disease [facility] Work Phone: Mental Status Date Assessment Result Facility 09-06-2022 Cognitive functi ons [id number] [facility] NEGATED: Highlighted row Cognitive function [Interpretation] Cognitive status health issues are not documented Disease [facility] [employer] Work Phone: Clinical Notes 11-19-2020 to 05-11-2025 Note Date & Type Note Facility 05-11-2025 Progress note [facility] 05-11-2025 Progress note Note Date/Time May 11, 2025 3:59pm [facility] [address], [address] [place] [address] OFFICE VISIT Date of Service: 05/11/25 MR#: [id number] Acct: [id number] Name: ISABELABHUMIAPOLINARY BIENVENIDOGEM CORREA Rep #: [id number] : 1995 Provider: ROSALINDA Hightower Age/Sex: 30/F Location: [facility] Status: Signed Intake Vital Signs 03/19/25 15:09 04/20/25 08:31 05/11/25 14:32 Height 5 ft 7 in 5 ft 7 in 5 ft 7 in Weight: 234 lb 5 oz BMI 36.6 BP 125/84 H Intake Visit Reasons: 21 WK OB Chief Complaint: 21wk OB Iuss Master Analyst Required: No Is patient in pain?: No Allergies Sulfa (Sulfonamide Antibiotics) Allergy (Intermediate, Verified 05/11/25 14:30) Swelling Medications ?Medication ?Instructions ?Recorded ?Confirmed ?Type docosahexaenoic acid 200 mg mg PO 01/28/25 05/11/25 Hi story capsule ( DHA) Last Menstrual Period: 12/15/24 : No Have you fallen in the past year?: No PFSH PFSH Surgical History [place] teeth removed S/P D&C (status post dilation and curettage) Family History Mother Breast cancer History of kidney cancer Osteoporosis Father Hypertension Sister Pre-eclampsia Grandmother Breast cancer Aunt Breast cancer Aunt Acute rheumatoid arthritis Social History adopted: No household members: spouse and children number of children: 2 current occupational status: employed 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 pets and animals: Yes (Gloves/mask) pets and animals: cat(s) history of recent travel: Yes ([place]) out of state: Yes out of country: No sexually active: Yes Smoking Status: Former smoker quit date: 07/23/24 second hand exposure: Yes alcohol intake: never substance use type: does not use well-balanced diet: about half the time caffeine: Yes Type: coffee Number of servings: 1 eating out: 1-3 times/week during the past year weight has: decreased > 10 lbs what type of physical activity do you participate in: walking frequency: 5-6 times per week duration: 15-30 minutes/day katya/yazidism: [employer] seatbelt use: always do you feel safe at home: Yes additional social history: : [email or web address] History 3 Elective abortions Hx Para 2 Spontaneous abortions Hx # Term Pregnancies Ectopic pregnancies Hx # Pregnancies Multiple births # of living children 2 Past Pregnancies Del. Date Name GA/Weeks Outcome Route Bth Weight Infant Gen Labor Lgth Anesthesia Del Locatn Provider FOB 05/15/18 hCarlene 39 live - full term 7lbs 4oz Female epidural Chester Peacock 09/05/22 Cheyanne 39 live - full term 8lbs 3oz Female epidural [facility] Peacock Delivery Date: 05/15/18 Last Updated by: Alyssa Reed RN Sub chorionic hematoma, Induced Delivery Date: 09/05/22 Last Updated by: Alyssa Reed RN [place] GDM, Induced HPI 21 WK OB Details: GENARO HATHAWAY is a 30 year old who presents for routine OB visit. OB Visit TIGIST Calculator Estimated Delivery Date Method Current WG Current Estimate 09/21/25 LMP (Certain) 21w 0d Other Estimates 09/21/25 Ultrasound #1 21w 0d Expected Delivery Route/Plan Labor Preferences- CB/BF classes: [] labor support person: [] labor intervention preferences: [] pain management options preferred: [] cut cord/dad catch: [] : [] PP control planned: [] discussed possible routes of delivery and associated risks: [] special requests: [] Specific Issue/Plans Covid status: [] Flu vaccine: [] Tdap vaccine: [] Rhogam: [] LARC form signed: [] Problem list reviewed and updated with the most current plan of care details and appropriate orders placed. Relevant counseling for the gestational age provided. Continue routine care and follow up unless otherwise noted in visit notes/problem list details Initial Weight: 206 lb Date -?-?-?-?-?-?-?-?-?-?-?-?- EGA Weight BP Urine Prot -?-?-?-?--?-?-?-?-?-?-?-?- Glucose FHR FuHt Pres Dilation -?-?-?-?-?-?-?-?-?-?--?-?- Effaced St Visit Note 02/19/25 -?-?-?-?-?-?-?-?-?-?-?-?- 9w 3d 206 lb 8 oz (+8 oz) 124/83 -?-?-?-?-?-?-?-?-?-?-?-?- 172 -?-?-?-?-?-?-?-?-?-?-?-?- KW- CRL 2.66 and cons with dates. accepts NIPT 03/19/25 -?-?-?-?-?-?-?-?-?-?-?-?- 13w 3d 216 lb 5 oz (+10 lb 5 oz) 120/84 Negative -?-?-?-?-?-?-?-?-?-?-?-?- Negative 160 -?-?-?-?-?-?-?-?-?-?-?-?- SM- no vb crampi ng 04/20/25 -?-?-?-?-?-?-?-?-?-?-?-?- 18w 0d 223 lb 3 oz (+17 lb 3 oz) 128/78 Negative -?-?-?-?-?-?-?-?-?-?-?-?- Negative 154 -?-?-?-?-?-?-?-?-?-?-?-?- MH-No VB. Maame g movement. Weight discussed. PN labs 05/11/25 -?-?-?-?-?-?-?-?-?-?-?-?- 21w 0d 234 lb 5 oz (+28 lb 5 oz) 125/84 Negative -?-?-?-?-?-?-?-?-?-?-?-?- Negative 165 -?-?-?-?-?-?-?-?-?-?-?-?- KW- no vb/ctx. s ome fm. concerns expressed about friends experience on the unit. ACOG First Trimester First Trimester: Desire for , Alcohol, Tobacco Cessation, Illicit/Recreational Drug/Substance Use, Intimate Partner Violence, Barriers to care, Unstable Housing, Communication Barriers, Environmental/Work Hazards, Anticipated Course of Care, Toxoplasmosis Precations, Use of Any medications, Sexual activity, Exercise, Dental Care, Sauna/Hot tub use, Seat Belt use, Childbirth classes/Hospital facilities, Travel, Indications for Ultrasound and Screening for Aneuploidy; Discussed Second Trimester Second Trimester: Signs and Symptoms of Labor, Selecting a care provider, Reproductive Life Planning & Contreception, Care Planning, Depression/Anxiety and Intimate Partner Violence; Discussed Tobacco Cessation Third Trimester Third Trimester: Pain Management Plans, Labor support person(s), Immediate Larc, Signs and Symptoms of Preeclampsia, Infant Feeding No , Education and Family Medical Leave or Disability Forms ROS Const Reports system reviewed and no additional complaints, except as documented Eyes Reports system reviewed and no additional complaints, except as documented ENT Reports system reviewed and no additional complaints, except as documented Card Reports system reviewed and no additional complaints, except as documented Resp Reports system reviewed and no additional complaints, except as documented GI Reports system reviewed and no additional complaints, except as documented, Denies nausea and Denies vomiting Reports system reviewed and no additional complaints, except as documented Musc Reports system reviewed and no additional complaints, except as documented Skin/Breast Reports system reviewed and no additional complaints, except as documented Neuro Yes system reviewed and no additional complaints, except as documented Psych Reports system reviewed and no additional complaints, except as documented Endo Reports system reviewed and no additional complaints, except as documented Kj/Lymph Reports system reviewed and no additional complaints, except as documented Aller/Immun Reports system reviewed and no additional complaints, except as documented Exam Const General: cooperative, healthy appearing and no acute distress Orientation: alert, awake and oriented x3 Neck Neck: normal visual inspection and full ROM Resp Effort & Inspection: normal respiratory effort, able to speak in complete sentences and symmetric chest movement GI Inspection: normal to inspection Palpation: soft and other Other: gravid Skin General: no rashes or lesions noted Neuro General: patient alert, patient awake and patient oriented x3 Cognition: normal cognition Speech: speech normal Gait: normal gait Motor: muscle tone normal throughout Extrem General: normal to inspection and full ROM Psych Appearance: grossly normal Mental Status: mental status grossly normal Mood: congruent mood Affect: normal affect Speech and Movement: speech and movement normal Attitude: cooperative Thought Process: normal Thought Content: normal Judgment: judgment good Results POC Urinalysis 2 Dip (Clinic) Office Urine Glucose Negative Last Edit by Jessica Monroy on 05/11/25 14:39 Office Urine Protein Negative Last Edit by Jessica Monroy on 05/11/25 14:39 Coding Level of Care Code OB Routine Diagnoses Fibroid, uterine D25.9 Supervision of high risk in second trimester O09.92 Trimester: second trimester 21 weeks gestation of Z3A.21 Weeks of gestation: 21 weeks Obesity affecting in second trimester, unspecified obesity type O99.212 Obesity type affecting : unspecified obesity Trimester: second trimester Cessation of tobacco use prior to Anxiety F41.9 Assessment and Plan Assessment and Plan (1) Fibroid, uterine: Status: Acute Comment: 2cm fundal (2) Supervision of high-risk : Status: Acute Qualifiers: Trimester: second trimester Qualified Code(s): O09.92 - Supervision of high risk , unspecified, second trimester Comment: PRR, , TIGIST 09/21/25, PC: Juliocesar, : Ayush (3) : Status: Acute Qualifiers: Weeks of gestation: 21 weeks Qualified Code(s): Z3A.21 - 21 weeks gestation of Comment: Discussed genetic/carrier testing - undecided. CL nl. (4) Obesity affecting : Status: Acute Qualifiers: Obesity type affecting : unspecified obesity Trimester: second trimester Qualified Code(s): O99.212 - Obesity complicating , second trimester Comment: BMI 32.1; HgBA1c ordered w/NOB (5) Cessation of tobacco use prior to : Status: Acute Comment: Stopped Jul 2024 (6) Anxiety: Status: Acute Comment: In counseling Orders: Orders POC Urinalysis 2 Dip (Clinic) Today Plan Details Additional Comments: ACOG trimester education reviewed and updated. see problem list details for updated plan management information and see below for orders placed at this visit. GA appropriate handout given. Clinical Quality Measures Falls Risk Screening/Assistive Devices Have you fallen in the past year?: No 05/11/25 5958 <Electronically signed by Johana wallace CNM> Date _ Johana Davis Signature: Date (if applicable) CC: ~ [facility] [employer] Work Phone: [phone] [facility] [address] [place] [address], [address] [place] [address] OFFICE VISIT Date of Service: 04/20/25 MR#: [id number] Acct: [id number] Name: GENARO HATHAWAY Rep #: [id number] : 1995 Provider: AMANDA Vega Age/Sex: 29/F Location: [facility] Status: Signed Intake Vital Signs 02/19/25 14:41 03/19/25 15:09 04/20/25 08:31 Height 5 ft 7 in 5 ft 7 in 5 ft 7 in Weight: 223 lb 3 oz BMI 34.9 BP 128/78 H Intake Visit Reasons: 17 wk ob Chief Complaint: 17 Week OB Iuss Master Analyst Required: No Is patient in pain?: No Allergies Sulfa (Sulfonamide Antibiotics) Allergy (Intermediate, Verified 04/20/25 08:33) Swelling Medications ?Medication ?Instructions ?Recorded ?Confirmed ?Type docosahexaenoic acid 200 mg mg PO 01/28/25 04/20/25 Hi story capsule ( DHA) Last Menstrual Period: 12/15/24 Zika: Zika virus screening: Negative : No PFSH PFSH Surgical History [place] teeth removed S/P D&C (status post dilation and curettage) Family History Mother Breast cancer History of kidney cancer Osteoporosis Father Hypertension Sister Pre-eclampsia Grandmother Breast cancer Aunt Breast cancer Aunt Acute rheumatoid arthritis Social History adopted: No household members: spouse and children number of children: 2 current occupational status: employed 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 pets and animals: Yes (Gloves/mask) pets and animals: cat(s) history of recent travel: [place] ([place]) out of state: Yes out of country: No sexually active: Yes Smoking Status: Former smoker quit date: 07/23/24 second hand exposure: Yes alcohol intake: never substance use type: does not use well-balanced diet: about half the time caffeine: Yes Type: coffee Number of servings: 1 eating out: 1-3 times/week during the past year weight has: decreased > 10 lbs what type of physical activity do you participate in: walking frequency: 5-6 times per week duration: 15-30 minutes/day katya/yazidism: Baptist seatbelt use: always do you feel safe at home: Yes additional social history: : [employer] Work History 3 Elective abortions Hx Para 2 Spontaneous abortions Hx # Term Pregnancies Ectopic pregnancies Hx # Pregnancies Multiple births # of living children 2 Past Pregnancies Del. Date Name GA/Weeks Outcome Route Bth Weight Infant Gen Labor Lgth Anesthesia Del Locatn Provider FOB 05/15/18 Charlene 39 live - full term 7lbs 4oz Female epidural Chester Peacock 09/05/22 Cheyanne 39 live - full term 8lbs 3oz Female epidural [place] Ayush Delivery Date: 05/15/18 Last Updated by: Alyssa Reed RN Sub chorionic hematoma, Induced Delivery Date: 09/05/22 Last Updated by: Alyssa Reed RN [place] GDM, Induced HPI 17 wk ob Details: GENARO HATHAWAY is a 29 year old who presents for routine OB visit. OB Visit TIGIST Calculator Estimated Delivery Date Method Current WG Current Estimate 09/21/25 LMP (Certain) 18w 0d Other Estimates 09/21/25 Ultrasound #1 18w 0d Expected Delivery Route/Plan Labor Preferences- CB/BF classes: [] labor support person: [] labor intervention preferences: [] pain management options preferred: [] cut cord/dad catch: [] : [] PP control planned: [] discussed possible routes of delivery and associated risks: [] special requests: [] Specific Issue/Plans Covid status: [] Flu vaccine: [] Tdap vaccine: [] Rhogam: [] LARC form signed: [] Problem list reviewed and updated with the most current plan of care details and appropriate ordersplaced. Relevant counseling for the gestational age provided. Continue routine care and follow up unless otherwise noted in visit notes/problem list details Initial Weight: 206 lb Date -?-?-?-?-?-?-?-?-?-?-?-?- EGA Weight BP Urine Prot -?-?-?-?-?-?-?-?-?-?-?-?- Glucose FHR FuHt Pres Dilation -?-?-?-?-?-?-?-?-?-?-?-?- Effaced St Visit Note 02/19/25 -?-?-?-?-?-?-?-?-?-?-?-?- 9w 3d 206 lb 8 oz (+8 oz) 124/83 -?-?-?-?-?-?-?-?-?-?-?-?- 172 -?-?-?-?-?-?-?-?-?-?-?-?- KW- CRL 2.66 and cons with dates. accepts NIPT 03/19/25 -?-?-?-?-?-?-?-?-?-?-?-?- 13w 3d 216 lb 5 oz (+10 lb 5 oz) 120/84 Negative -?-?-?-?-?-?-?-?-?-?-?-?- Negative 160 -?-?-?-?-?-?-?-?-?-?-?-?- SM- no vb crampi ng 04/20/25 -?-?-?-?-?-?-?-?-?-?-?-?- 18w 0d 223 lb 3 oz (+17 lb 3 oz) 128/78 Negative -?-?-?-?-?-?-?-?-?-?-?-?- Negative 154 -?-?-?-?-?-?-?-?-?-?-?-?- MH-No VB. Kimmiein g movement. Weight discussed. PN labs ACOG First Trimester First Trimester: Desire for , Alcohol, Tobacco Cessation, Illicit/Recreational Drug/Substance Use, Intimate Partner Violence, Barriers to care, Unstable Housing, Communication Barriers, Environmental/Work Hazards, Anticipated Course of Care, Toxoplasmosis Precations, Use of Any med ications, Sexual activity, Exercise, Dental Care, Sauna/Hot tub use, Seat Belt use, Childbirth classes/Hospital facilities, Travel, Indications for Ultrasound and Screening for Aneuploidy; Discussed Second Trimester Second Trimester: Signs and Symptoms of Labor, Selecting a care provider, Reproductive Life Planning & Contreception, Care Planning, Depression/Anxiety and Intimate Partner Violence; Discussed Tobacco Cessation Third Trimester Third Trimester: Pain Management Plans, Labor support person(s), Immediate Larc, Signs and Symptoms of Preeclampsia, Infant Feeding No , [place] Education and Family Medical Leave or Disability Forms ROS Const Reports system reviewed and no additional complaints, except as documented GI Denies abdominal pain, Denies nausea and Denies vomiting Exam Const General: cooperative Nutritional Appearance: well nourished GI Palpation: soft, nontender and other (gravid) Results POC Urinalysis 2 Dip (Clinic) Office Urine Glucose Negative Last Edit by Genaro Gabriel on 04/20/25 08 :39 Office Urine Protein Negative Last Edit by Genaro Gabriel on 04/20/25 08 :39 Coding Level of Care Code OB Routine Diagnoses Supervision of high risk in second trimester O09.92 Trimester: second trimester 18 weeks gestation of Z3A.18 Weeks of gestation: 18 weeks Obesity affecting in second trimester, unspecified obesity type O99.212 Trimester: second trimester Obesity type affecting : unspecified obesity Cessation of tobacco use prior to Anxiety F41.9 Assessment and Plan Assessment and Plan (1) Supervision of high-risk : Status: Acute Qualifiers: Trimester: second trimester Qualified Code(s): O09.92 - Supervision of high risk , unspecified, second trimester Comment: , TIGIST 09/21/25, PC: Juliocesar, : Ayush (2) : Status: Acute Qualifiers: Weeks of gestation: 18 weeks Qualified Code(s): Z3A.18 - 18 weeks gestation of Comment: Discussed genetic/carrier testing - undecided (3) Obesity affecting : Status: Acute Qualifiers: Trimester: second trimester Obesity type affecting : unspecified obesity Qualified Code(s): O99.212 - Obesity complicating , second trimester Comment: BMI 32.1; HgBA1c ordered w/NOB (4) Cessation of tobacco use prior to : Status: Acute Comment: Stopped Jul 2024 (5) Anxiety: Status: Acute Comment: In counseling Orders: Orders POC Urinalysis 2 Dip (Clinic) Today Plan problem list reviewed and updated for most current plan of care and appropriate orders placed. Relevant counseling for the gestational age appropriate provided and ACOG education checklist updated. Continue routine care and follow up. 04/20/25 0845 s FINAL INSPECTOR TRUCK TRAILER FINAL INSPECTOR TRUCK TRAILER-C> Date _ Latisha Vega FINAL INSPECTOR TRUCK TRAILER FINAL INSPECTOR TRUCK TRAILER-C Cosigner Signature: Date (if applicable) CC: ~ [facility]08-28-2025 [facility] [address] [place] [address], [address] [place] [address] OFFICE VISIT Date of Service: 03/19/25 MR#: [id number] Acct: [id number] Name: GENARO HATHAWAY BIENVENIDO SUNNY Rep #: [id number] : 1995 Provider: Dr. Presley Burnett MD Age/Sex: 29/F Location: [facility] Status: Signed Intake Vital Signs 01/28/25 14:53 02/19/25 14:41 03/19/25 15:09 Height 5 ft 7 in 5 ft 7 in 5 ft 7 in Weight: 216 lb 5 oz BMI 33.8 BP 120/84 H Intake Visit Reasons: 13wk OB Iuss Master Analyst Required: No Is patient in pain?: No Allergies Sulfa (Sulfonamide Antibiotics) Allergy (Intermediate, Verified 03/19/25 15:10) Swelling Medications ?Medication ?Instructions ?Recorded ?Confirmed ?Type docosahexaenoic acid 200 mg mg PO 01/28/25 03/19/25 Hi story capsule ( DHA) Last Menstrual Period: 12/15/24 Zika: Zika virus screening: Negative : No PFSH PFSH Surgical History [place] teeth removed S/P D&C (status post dilation and curettage) Family History Mother Breast cancer History of kidney cancer Osteoporosis Father Hypertension Sister Pre-eclampsia Grandmother Breast cancer Aunt Breast cancer Aunt Acute rheumatoid arthritis Social History adopted: No household members: spouse and children number of children: 2 current occupational status: employed 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 pets and animals: Yes (Gloves/mask) pets and animals: cat(s) history of recent travel: [place] ([place]) out of state: Yes out of country: No sexually active: Yes Smoking Status: Former smoker quit date: 07/23/24 second hand exposure: Yes alcohol intake: never substance use type: does not use well-balanced diet: about half the time caffeine: Yes Type: coffee Number of servings: 1 eating out: 1-3 times/week during the past year weight has: decreased > 10 lbs what type of physical activity do you participate in: walking frequency: 5-6 times per week duration: 15-30 minutes/day katya/yazidism: Baptist seatbelt use: always do you feel safe at home: Yes additional social history: : [employer] Work History 3 Elective abortions Hx Para 2 Spontaneous abortions Hx # Term Pregnancies Ectopic pregnancies Hx # Pregnancies Multiple births # of living children 2 Past Pregnancies Del. Date Name GA/Weeks Outcome Route Bth Weight Gen Labor Lgth Anesthesia Del Locatn Provider FOB 05/15/18 Charlene 39 live - full term 7lbs 4oz Female epidural [facility] Peacock 09/05/22 Cheyanne 39 live - full term 8lbs 3oz Female epidural [place] Ayush Delivery Date: 05/15/18 Last Updated by: Alyssa Reed RN Sub chorionic hematoma, Induced Delivery Date: 09/05/22 Last Updated by: Alyssa Reed RN [place] GDM, Induced HPI 13wk OB Details: GENARO HATHAWAY is a 29 year old who presents for routine OB visit. OB Visit TIGIST Calculator Estimated Delivery Date Method Current WG Current Estimate 09/21/25 LMP (Certain) 13w 3d Other Estimates 09/21/25 Ultrasound #1 13w 3d Expected Delivery Route/Plan Labor Preferences- CB/BF classes: [] labor support person: [] labor intervention preferences: [] pain management options preferred: [] cut cord/dad catch: [] : [] PP control planned: [] discussed possible routes of delivery and associated risks: [] special requests: [] Specific Issue/Plans Covid status: [] Flu vaccine: [] Tdap vaccine: [] Rhogam: [] LARC form signed: [] Problem list reviewed and updated with the most current plan of care details and appropriate ordersplaced. Relevant counseling for the gestational age provided. Continue routine care and follow up unless otherwise noted in visit notes/problem list details Initial Weight: 206 lb Date -?-?-?--?-?-?-?-?-?-?-?-?- EGA Weight BP Urine Prot -?-?-?-?-?-?-?-?-?-?-?-?- Glucose FHR FuHt Pres Dilation -?-?-?-?-?-?-?-?-?-?-?-?- Effaced St Visit Note 02/19/25 -?-?-?-?-?-?-?-?-?-?-?-?- 9w 3d 206 lb 8 oz (+8 oz) 124/83 -?-?-?-?-?-?-?-?-?-?-?-?- 172 -?-?-?-?-?-?-?-?-?-?-?-?- KW- CRL 2.66 and cons with dates. accepts NIPT 03/19/25 -?-?-?-?-?-?-?-?-?-?-?-?- 13w 3d 216 lb 5 oz (+10 lb 5 oz) 120/84 Negative -?-?-?-?-?-?-?-?-?-?-?-?- Negative 160 -?-?-?-?-?-?-?-?-?-?-?-?- SM- no vb crampi ng ACOG First Trimester First Trimester: Desire for , Alcohol, Tobacco Cessation, Illicit/Recreational Drug/Substance Use, Intimate Partner Violence, Barriers to care, Unstable Housing, Communication Barriers, Environmental/Work Hazards, Anticipated Course of Care, Toxoplasmosis Precations, Use of Any med ications, Sexual activity, Exercise, Dental Care, Sauna/Hot tub use, Seat Belt use, Childbirth classes/Hospital facilities, Travel, Indications for Ultrasound and Screening for Aneuploidy; Discussed Second Trimester Second Trimester: Signs and Symptoms of Labor, Selecting a care provider, Reproductive Life Planning & Contreception, Care Planning, Depression/Anxiety and Intimate Partner Violence; Discussed Tobacco Cessation Third Trimester Third Trimester: Pain Management Plans, Labor support person(s), Immediate Larc, Signs and Symptoms of Preeclampsia, Feeding No , Education and Family Medical Leave or Disability Forms Results POC Urinalysis 2 Dip (Clinic) Office Urine Glucose Negative Last Edit by Latisha Burns on 03/19/25 15:18 Office Urine Protein Negative Last Edit by Latisha Burns on 03/19/25 15:18 Coding Level of Care Code OB Routine Diagnoses Supervision of high-risk O09.90 13 weeks gestation of Z3A.13 Weeks of gestation: 13 weeks Obesity affecting O99.210 Cessation of tobacco use prior to Anxiety F41.9 Assessment and Plan Assessment and Plan (1) Supervision of high-risk : Status: Acute Comment: , TIGIST 09/21/25, PC: Juliocesar, : Ayush (2) : Status: Acute Qualifiers: Weeks of gestation: 13 weeks Qualified Code(s): Z3A.13 - 13 weeks gestation of Comment: Discussed genetic/carrier testing - undecided (3) Obesity affecting : Status: Acute Comment: BMI 32.1; HgBA1c ordered w/NOB (4) Cessation of tobacco use prior to : Status: Acute Comment: Stopped Jul 2024 (5) Anxiety: Status: Acute Comment: In counseling Orders: Orders POC Urinalysis 2 Dip (Clinic) Today 03/19/25 1541 charlie BOLIVAR> Date _ Silke Burnett MD Cosigner Signature: Date (if applicable) CC: ~ [facility]08-28-2025 Progress note Author Silke Burnett [facility] Note Date/Time March 19, 2025 3: 41pm [facility] [address] [place] [address] OFFICE VISIT Date of Service: 03/19/25 MR#: [id number] Acct: [id number] Name: GENARO HATHAWAY Rep #: [id number] : 1995 Provider: Dr. Presley Burnett MD Age/Sex: 29/F Location: [facility] Status: Signed Intake Vital Signs 01/28/25 14:53 02/19/25 14:41 03/19/25 15:09 Height 5 ft 7 in 5 ft 7 in 5 ft 7 in Weight: 216 lb 5 oz BMI 33.8 BP 120/84 H Intake Visit Reasons: 13wk OB Iuss Master Analyst Required: No Is patient in pain?: No Allergies Sulfa (Sulfonamide Antibiotics) Allergy (Intermediate, Verified 03/19/25 15:10) Swelling Medications ?Medication ?Instructions ?Recorded ?Confirmed ?Type docosahexaenoic acid 200 mg mg PO 01/28/25 03/19/25 Hi story capsule ( DHA) Last Menstrual Period: 12/15/24 Zika: Zika virus screening: Negative : No PFSH PFSH Surgical History [place] teeth removed S/P D&C (status post dilation and curettage) Family History Mother Breast cancer History of kidney cancer Osteoporosis Father Hypertension Sister Pre-eclampsia Grandmother Breast cancer Aunt Breast cancer Aunt Acute rheumatoid arthritis Social History adopted: No household members: spouse and children number of children: 2 current occupational status: employed 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 pets and animals: Yes (Gloves/mask) pets and animals: cat(s) history of recent travel: [place] ([place]) out of state: Yes out of country: No sexually active: Yes Smoking Status: Former smoker quit date: 07/23/24 second hand exposure: Yes alcohol intake: never substance use type: does not use well-balanced diet: about half the time caffeine: Yes Type: coffee Number of servings: 1 eating out: 1-3 times/week during the past year weight has: decreased > 10 lbs what type of physical activity do you participate in: walking frequency: 5-6 times per week duration: 15-30 minutes/day katya/yazidism: Baptist seatbelt use: always do you feel safe at home: Yes additional social history: : Ayush [employer] Work History 3 Elective abortions Hx Para 2 Spontaneous abortions Hx # Term Pregnancies Ectopic pregnancies Hx # Pregnancies Multiple births # of living children 2 Past Pregnancies Del. Date Name GA/Weeks Outcome Route Bth Weight Infant Gen Labor Lgth Anesthesia Del Locatn Provider FOB 05/15/18 Charlene 39 live - full term 7lbs 4oz Female epidural [place] Peacock 09/05/22 Cheyanne 39 live - full term 8lbs 3oz Female epidural [place] [facility] Ayush Delivery Date: 05/15/18 Last Updated by: Alyssa Reed RN Sub chorionic hematoma, Induced Delivery Date: 09/05/22 Last Updated by: Alyssa Reed RN [place] GDM, Induced HPI 13wk OB Details: GENARO HATHAWAY is a 29 year old who presents for routine OB visit. OB Visit TIGIST Calculator Estimated Delivery Date Method Current WG Current Estimate 09/21/25 LMP (Certain) 13w 3d Other Estimates 09/21/25 Ultrasound #1 13w 3d Expected Delivery Route/Plan Labor Preferences- CB/BF classes: [] labor support person: [] labor intervention preferences: [] pain management options preferred: [] cut cord/dad catch: [] : [] PP control planned: [] discussed possible routes of delivery and associated risks: [] special requests: [] Specific Issue/Plans Covid status: [] Flu vaccine: [] Tdap vaccine: [] Rhogam: [] LARC form signed: [] Problem list reviewed and updated with the most current plan of care details and appropriate orders placed. Relevant counseling for the gestational age provided. Continue routine care and follow up unless otherwise noted in visit notes/problem list details Initial Weight: 206 lb Date -?-?-?--?-?-?-?-?-?-?-?-?- EGA Weight BP Urine Prot -?-?-?-?-?-?-?-?-?-?-?-?- Glucose FHR FuHt Pres Dilation -?-?-?-?-?-?-?-?-?-?-?-?- Effaced St Visit Note 02/19/25 -?-?-?-?-?-?-?-?-?-?-?-?- 9w 3d 206 lb 8 oz (+8 oz) 124/83 -?-?-?-?-?-?-?-?-?-?-?-?- 172 -?-?-?-?-?-?-?-?-?-?-?-?- KW- CRL 2.66 and cons with dates. accepts NIPT 03/19/25 -?-?-?-?-?-?-?-?-?-?-?-?- 13w 3d 216 lb 5 oz (+10 lb 5 oz) 120/84 Negative -?-?-?-?-?-?-?-?-?-?-?-?- Negative 160 -?-?-?-?-?-?-?-?-?-?-?-?- SM- no vb crampi ng ACOG First Trimester First Trimester: Desire for , Alcohol, Tobacco Cessation, Illicit/Recreational Drug/Substance Use, Intimate Partner Violence, Barriers to care, Unstable Housing, Communication Barriers, Environmental/Work Hazards, Anticipated Course of Care, Toxoplasmosis Precations, Use of Any medications, Sexual activity, Exercise, Dental Care, Sauna/Hot tub use, Seat Belt use, Childbirth classes/Hospital facilities, Travel, Indications for Ultrasound and Screening for Aneuploidy; Discussed Second Trimester Second Trimester: Signs and Symptoms of Labor, Selecting a care provider, Reproductive Life Planning & Contreception, Care Planning, Depression/Anxiety and Intimate Partner Violence; Discussed Tobacco Cessation Third Trimester Third Trimester: Pain Management Plans, Labor support person(s), Immediate Larc, Signs and Symptoms of Preeclampsia, Feeding No , Wheeler Education and Family Medical Leave or Disability Forms Results POC Urinalysis 2 Dip (Clinic) Office Urine Glucose Negative Last Edit by Latisha Burns on 03/19/25 15:18 Office Urine Protein Negative Last Edit by Latisha Burns on 03/19/25 15:18 Coding Level of Care Code OB Routine Diagnoses Supervision of high-risk O09.90 13 weeks gestation of Z3A.13 Weeks of gestation: 13 weeks Obesity affecting O99.210 Cessation of tobacco use prior to Anxiety F41.9 Assessment and Plan Assessment and Plan (1) Supervision of high-risk : Status: Acute Comment: , TIGIST 09/21/25, PC: Juliocesar, : Ayush (2) : Status: Acute Qualifiers: Weeks of gestation: 13 weeks Qualified Code(s): Z3A.13 - 13 weeks gestation of Comment: Discussed genetic/carrier testing - undecided (3) Obesity affecting : Status: Acute Comment: BMI 32.1; HgBA1c ordered w/NOB (4) Cessation of tobacco use prior to : Status: Acute Comment: Stopped Jul 2024 (5) Anxiety: Status: Acute Comment: In counseling Orders: Orders POC Urinalysis 2 Dip (Clinic) Today 03/19/25 1541 <Electronically signed by Silke guerra MD> Date _ Silke Burnett MD [facility] Signature: Date (if applicable) CC: ~ [facility] Work Phone: [phone] [facility] [address] [place] [address], [address] [place] [address] OFFICE VISIT Date of Service: 02/19/25 MR#: [id number] Acct: [id number] Name: GENARO HATHAWAY Rep #: [id number] : 1995 Provider: ROSALINDA Hightower Age/Sex: 29/F Location: [facility] Status: Signed Intake Vital Signs 01/28/25 14:53 02/19/25 14:41 Height 5 ft 7 in 5 ft 7 in Weight: 206 lb 8 oz BMI 32.3 BP 124/83 H Intake Visit Reasons: *NEW* NOB LMP 12/15, TIGIST 3/ Chief Complaint: New OB Iuss Master Analyst Required: No Is patient in pain?: No Allergies Sulfa (Sulfonamide Antibiotics) Allergy (Intermediate, Verified 02/19/25 14:39) Swelling Medications ?Medication ?Instructions ?Recorded ?Confirmed ?Type docosahexaenoic acid 200 mg mg PO 01/28/25 02/19/25 Hi story capsule ( DHA) Last Menstrual Period: 12/15/24 : Yes PFSH PFSH Surgical History [place] teeth removed S/P D&C (status post dilation and curettage) Family History Mother Breast cancer History of kidney cancer Osteoporosis Father Hypertension Sister Pre-eclampsia Grandmother Breast cancer Aunt Breast cancer Aunt Acute rheumatoid arthritis Social History adopted: No household members: spouse and children number of children: 2 current occupational status: employed 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 pets and animals: Yes (Gloves/mask) pets and animals: cat(s) history of recent travel: Yes ([place]) out of state: Yes out of country: No sexually active: Yes Smoking Status: Former smoker quit date: 07/23/24 second hand exposure: Yes alcohol intake: never substance use type: does not use well-balanced diet: about half the time caffeine: Yes Type: coffee Number of servings: 1 eating out: 1-3 times/week during the past year weight has: decreased > 10 lbs what type of physical activity do you participate in: walking frequency: 5-6 times per week duration: 15-30 minutes/day katya/yazidism: Baptist seatbelt use: always do you feel safe at home: Yes additional social history: : [employer] Work History 3 Elective abortions Hx Para 2 Spontaneous abortions Hx # Term Pregnancies Ectopic pregnancies Hx # Pregnancies Multiple births # of living children 2 Past Pregnancies Del. Date Name GA/Weeks Outcome Route Bth Weight Infant Gen Labor Lgth Anesthesia Del Locatn Provider FOB 05/15/18 Charlene 39 live - full term 7lbs 4oz Female epidural [facility] 09/05/22 Cheyanne 39 live - full term 8lbs 3oz Female epidural [facility] Delivery Date: 05/15/18 Last Updated by: Alyssa Reed RN Sub chorionic hematoma, Induced Delivery Date: 09/05/22 Last Updated by: Alyssa Reed RN [place] GDM, Induced HPI *NEW* NOB LMP 12/15, TIGIST 09/21 Details: GENARO HATHAWAY is a 29 year old who presents for New OB visit. OB Visit TIGIST Calculator Estimated Delivery Date Method Current WG Current Estimate 09/21/25 LMP (Certain) 9w 3d Other Estimates 09/21/25 Ultrasound #1 9w 3d Estimated Due Date: 09/21/25 Expected Delivery Route/Plan Labor Preferences- CB/BF classes: [] labor support person: [] labor intervention preferences: [] pain management options preferred: [] cut cord/dad catch: [] : [] PP control planned: [] discussed possible routes of delivery and associated risks: [] special requests: [] Specific Issue/Plans Covid status: [] Flu vaccine: [] Tdap vaccine: [] Rhogam: [] LARC form signed: [] Problem list reviewed and updated with the most current plan of care details and appropriate ordersplaced. Relevant counseling for the gestational age provided. Continue routine care and follow up unless otherwise noted in visit notes/problem list details Initial Weight: 206 lb Date -?-?-?-?-?-?-?-?-?-?-?-?- EGA Weight BP Urine Prot -?-?-?-?-?-?-?-?-?-?-?-?- Glucose FHR FuHt Pres Dilation -?-?-?-?-?-?-?-?-?-?-?-?- Effaced St Visit Note 02/19/25 -?-?-?-?-?-?-?-?-?-?-?-?- 9w 3d 206 lb 8 oz (+8 oz) 124/83 -?-?-?-?-?-?-?-?-?-?-?-?- 172 -?-?-?-?-?-?-?-?-?-?-?-?- KW- CRL 2.66 and cons with dates. accepts NIPT Menstrual History Last Menstrual Period: 12/15/24 Reported LMP: definite Normal amount/duration: Yes Frequency in days: 26 On hormonal BC at conception: No hCG+: 01/15/25 Antepartum Record Genetic Screening: Congenital Heart Defect: Other, Neural Tube Defect: Other, Hemoglobinopathy Or Carrier: Other, Cystic Fibrosis: Other, Chromosome Abnormality: Other, Alin-Sachs: Other, Hemophilia: Other, Intellectual Disability/Autism: Other, Recurrent Loss/Stillbirth: Partner (FOB mom w/stillbirth of a twin), Other Structural Defect: Other, Other Genetic Disease: Other and Maternal Metabolic Disorder: Other Infection History: Live with someone with TB or Exposed to TB: No, Patient or Partner has history of Genital Herpes: No, Rash or Viral illness since last mentrual period: No, Prior GBS-Infected child: No, History of STD: No, HIV Infection: No, History of Hepatitis: No, Recent travel outside of [place]: No, Concern for hepatitis exposure: No, Varicella immune: Yes (Had chicken pox ) and Covid Vaccinated: No Medical History Medical History: Positive: Drug/latex allergies/reactions (sulfa) and Operations/hospitalizations (see surg hx) and Negative: Diabetes, Hypertension, Heart disease, Auto-immune disorder, Kidney disease/UTI, Neurologic/epilepsy, Psychiatric, Depression/ depression, Hepatitis/liver disease, Varicosities/phlebitis, Thyroid dysfunction, Trauma/domestic violence, History of blood transfusions, D (Rh) Sensitized, Pulmonary (e.g.,TB,Asthma), Seasonal allergies, Breast, Wireworker surgery, Anesthetic complications, History of abnormal pap, Uterine anomaly/iwona, Infertility, Anti-retroviral treatment, Relevant family history and Other ACOG First Trimester First Trimester: Desire for , Alcohol, Tobacco Cessation, Illicit/Recreational Drug/Substance Use, Intimate Partner Violence, Barriers to care, Unstable Housing, Communication Barriers, Environmental/Work Hazards, Anticipated Course of Care, Toxoplasmosis Precations, Use of Any med ications, Sexual activity, Exercise, Dental Care, Sauna/Hot tub use, Seat Belt use, Childbirth classes/Hospital facilities, , Travel, Indications for Ultrasound and Screening for Aneuploidy Second Trimester Second Trimester: Signs and Symptoms of Labor, Selecting a care provider, Reproductive Life Planning & Contreception, Care Planning, Depression/Anxiety and Intimate Partner Violence; Discussed Tobacco Cessation Third Trimester Third Trimester: Pain Management Plans, Labor support person(s), Immediate Larc, Signs and Symptoms of Preeclampsia, Feeding Yes , Education and Family Medical Leave or Disability Forms ROS Const Reports system reviewed and no additional complaints, except as documented, Denies fatigue, Denies headache(s) and Denies lethargy ENT Denies headache(s) Card Reports system reviewed and no additional complaints, except as documented Resp Reports system reviewed and no additional complaints, except as documented GI Reports system reviewed and no additional complaints, except as documented, Denies abdominal pain, Denies constipation, Denies cramping, Denies diarrhea and Denies dyspepsia Reports system reviewed and no additional complaints, except as documented, Denies abnormal vaginalbleeding, Denies difficulty voiding, Denies dyspareunia and Denies dysuria Musc Reports system reviewed and no additional complaints, except as documented Skin/Breast Reports system reviewed and no additional complaints, except as documented Neuro Yes system reviewed and no additional complaints, except as documented and No headache(s) Psych Reports system reviewed and no additional complaints, except as documented, Denies anhedonia and Denies anxiety Endo Reports system reviewed and no additional complaints, except as documented and Denies fatigue Exam Const General: cooperative, healthy appearing and comfortable Neck Neck: normal visual inspection and full ROM Chest Chest palpation & inspection: normal inspection of the chest Breast inspection: normal inspection of the breasts and normal inspection of the axillae Breast palpation: normal palpation of the breasts and normal palpation of the axillae Resp Effort & Inspection: normal respiratory effort and able to speak in complete sentences GI Inspection: normal to inspection Palpation: soft External Female Exam: normal external appearance and normal appearance of the urethra Urethra: normal appearance of the urethra Skin General: no rashes or lesions noted Neuro General: patient alert, patient awake and patient oriented x3 Extrem General: normal to inspection and full ROM Psych Appearance: grossly normal and well kempt Mental Status: mental status grossly normal Mood: congruent mood Affect: normal affect Speech and Movement: speech and movement normal Thought Process: normal Thought Content: normal Coding Level of Care Code OB Routine Diagnoses Supervision of high-risk O09.90 9 weeks gestation of Z3A.09 Weeks of gestation: 9 weeks Obesity affecting O99.210 Cessation of tobacco use prior to Anxiety F41.9 Assessment and Plan Assessment and Plan (1) Supervision of high-risk : Status: Acute Comment: , TIGIST 09/21/25, PC: Juliocesar, : Ayush (2) : Status: Acute Qualifiers: Weeks of gestation: 9 weeks Qualified Code(s): Z3A.09 - 9 weeks gestation of Comment: Discussed genetic/carrier testing - undecided (3) Obesity affecting : Status: Acute Comment: BMI 32.1; HgBA1c ordered w/NOB (4) Cessation of tobacco use prior to : Status: Acute Comment: Stopped Jul 2024 (5) Anxiety: Status: Acute Comment: In counseling Orders: Orders PAP IG HPV APTIMA 16/18,45 Today O09.90 - Supervision of high risk , unspecified, unspecified trimester, Z12.4 - Encounter for screening for malignant neoplasm of cervix Comments Comments: Patient oriented to practice and discussed care expectations and screenings. ACOG book offered to patient. Discussed routine and specially indicated labs if needed- patient consents to testing. See problem list details for plan information. Optional screening including maternal carrier screenings, neural tube defect screening, genetic screening options including quad screen, nuchal translucency, sequential screening, and NIPT screening offered to patient and patient chose: [ ] 02/19/25 1523 s CNM> Date _ Johana Hightower CNM Cosigner Signature: Date (if applicable) CC: ~ [facility]07-31-2025 Progress note Author Johana Hightower [facility] Note Date/Time February 19, 2025 3:[address] [facility] [address] [place] [address] OFFICE VISIT Date of Service: 02/19/25 MR#: [id number] Acct: [id number] Name: GENARO HATHAWAY Rep #: [id number] : 1995 Provider: ROSALINDA Hightower Age/Sex: 29/F Location: [facility] Status: Signed Intake Vital Signs 01/28/25 14:53 02/19/25 14:41 Height 5 ft 7 in 5 ft 7 in Weight: 206 lb 8 oz BMI 32.3 BP 124/83 H Intake Visit Reasons: *NEW* NOB LMP 12/15, TIGIST 09/21 Chief Complaint: New OB Iuss Master Analyst Required: No Is patient in pain?: No Allergies Sulfa (Sulfonamide Antibiotics) Allergy (Intermediate, Verified 02/19/25 14:39) Swelling Medications ?Medication ?Instructions ?Recorded ?Confirmed ?Type docosahexaenoic acid 200 mg mg PO 01/28/25 02/19/25 Hi story capsule ( DHA) Last Menstrual Period: 12/15/24 : Yes PFSH PFSH Surgical History [place] teeth removed S/P D&C (status post dilation and curettage) Family History Mother Breast cancer History of kidney cancer Osteoporosis Father Hypertension Sister Pre-eclampsia Grandmother Breast cancer Aunt Breast cancer Aunt Acute rheumatoid arthritis Social History adopted: No household members: spouse and children number of children: 2 current occupational status: employed 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 pets and animals: Yes (Gloves/mask) pets and animals: cat(s) history of recent travel: [place] ([place]) out of state: Yes out of country: No sexually active: Yes Smoking Status: Former smoker quit date: 07/23/24 second hand exposure: Yes alcohol intake: never substance use type: does not use well-balanced diet: about half the time caffeine: Yes Type: coffee Number of servings: 1 eating out: 1-3 times/week during the past year weight has: decreased > 10 lbs what type of physical activity do you participate in: walking frequency: 5-6 times per week duration: 15-30 minutes/day katya/yazidism: Baptist seatbelt use: always do you feel safe at home: Yes additional social history: : Ayush [employer] History 3 Elective abortions Hx Para 2 Spontaneous abortions Hx # Term Pregnancies Ectopic pregnancies Hx # Pregnancies Multiple births # of living children 2 Past Pregnancies Del. Date Name GA/Weeks Outcome Route Bth Weight Gen Labor Lgth Anesthesia Del Locatn Provider FOB 05/15/18 Charlene 39 live - full term 7lbs 4oz Female epidural [place] [facility] 09/05/22 Cheyanne 39 live - full term 8lbs 3oz Female epidural [facility] Delivery Date: 05/15/18 Last Updated by: Alyssa Reed RN Sub chorionic hematoma, Induced Delivery Date: 09/05/22 Last Updated by: Alyssa Reed RN [place] GDM, Induced HPI *NEW* NOB LMP 12/15, TIGIST 09/21 Details: GENARO HATHAWAY is a 29 year old who presents for New OB visit. OB Visit TIGIST Calculator Estimated Delivery Date Method Current WG Current Estimate 09/21/25 LMP (Certain) 9w 3d Other Estimates 09/21/25 Ultrasound #1 9w 3d Estimated Due Date: 09/21/25 Expected Delivery Route/Plan Labor Preferences- CB/BF classes: [] labor support person: [] labor intervention preferences: [] pain management options preferred: [] cut cord/dad catch: [] : [] PP control planned: [] discussed possible routes of delivery and associated risks: [] special requests: [] Specific Issue/Plans Covid status: [] Flu vaccine: [] Tdap vaccine: [] Rhogam: [] LARC form signed: [] Problem list reviewed and updated with the most current plan of care details and appropriate orders placed. Relevant counseling for the gestational age provided. Continue routine care and follow up unless otherwise noted in visit notes/problem list details Initial Weight: 206 lb Date -?-?-?-?-?-?-?-?-?-?-?-?- EGA Weight BP Urine Prot -?-?-?-?-?-?-?-?-?-?-?-?- Glucose FHR FuHt Pres Dilation -?-?-?-?-?-?-?-?-?-?-?-?- Effaced St Visit Note 02/19/25 -?-?-?-?-?-?-?-?-?-?-?-?- 9w 3d 206 lb 8 oz (+8 oz) 124/83 -?-?-?-?-?-?-?-?-?-?-?-?- 172 -?-?-?-?-?-?-?-?-?-?-?-?- KW- CRL 2.66 and cons with dates. accepts NIPT Menstrual History Last Menstrual Period: 12/15/24 Reported LMP: definite Normal amount/duration: Yes Frequency in days: 26 On hormonal BC at conception: No hCG+: 01/15/25 Antepartum Record Genetic Screening: Congenital Heart Defect: Other, Neural Tube Defect: Other, Hemoglobinopathy Or Carrier: Other, Cystic Fibrosis: Other, Chromosome Abnormality: Other, Alin-Sachs: Other, Hemophilia: Other, Intellectual Disability/Autism: Other, Recurrent Loss/Stillbirth: Partner (FOB mom w/stillbirth of a twin), Other Structural Defect: Other, Other Genetic Disease: Other and Maternal Metabolic Disorder: Other Infection History: Live with someone with TB or Exposed to TB: No, Patient or Partner has history of Genital Herpes: No, Rash or Viral illness since last mentrual period: No, Prior GBS-Infected child: No, History of STD: No, HIV Infection: No, History of Hepatitis: No, Recent travel outside of [place]: No, Concern for hepatitis exposure: No, Varicella immune: Yes (Had chicken pox ) and Covid Vaccinated: No Medical History Medical History: Positive: Drug/latex allergies/reactions (sulfa) and Operations/hospitalizations (see surg hx) and Negative: Diabetes, Hypertension, Heart disease, Auto-immune disorder, Kidney disease/UTI, Neurologic/epilepsy, Psychiatric, Depression/ depression, Hepatitis/liver disease, Varicosities/phlebitis, Thyroid dysfunction, Trauma/domestic violence, History of blood transfusions, D (Rh) Sensitized, Pulmonary (e.g.,TB,Asthma), Seasonal allergies, Breast, Wireworker surgery, Anesthetic complications, History of abnormal pap, Uterine anomaly/iwona, Infertility, Anti-retroviral treatment, Relevant family history and Other ACOG First Trimester First Trimester: Desire for , Alcohol, Tobacco Cessation, Illicit/Recreational Drug/Substance Use, Intimate Partner Violence, Barriers to care, Unstable Housing, Communication Barriers, Environmental/Work Hazards, Anticipated Course of Care, Toxoplasmosis Precations, Use of Any medications, Sexual activity, Exercise, Dental Care, Sauna/Hot tub use, Seat Belt use, Childbirth classes/Hospital facilities, , Travel, Indications for Ultrasound and Screening for Aneuploidy Second Trimester Second Trimester: Signs and Symptoms of Labor, Selecting a care provider, Reproductive Life Planning & Contreception, Care Planning, Depression/Anxiety and Intimate Partner Violence; Discussed Tobacco Cessation Third Trimester Third Trimester: Pain Management Plans, Labor support person(s),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 history of hypertensi on: Father(V17.49, Z82.49) Status:Active Family history of malignant neoplasm of breast: Grandmother, Mother, Aunt(V16.3, Z80.3) Status:Active Unknown Family Member Name Dates Details Family history of osteoporos is: Mother(V17.81, Z82.62) Status:Active Family history of renal cell carcinoma: Mother(V16.51, Z80.51) Status:Active Family history of hypertensi on: Father(V17.49, Z82.49) Status:Active Family history of malignant neoplasm of breast: Grandmother, Mother, Aunt(V16.3, Z80.3) Status:Active Unknown Family Member Name Dates Details Family history of osteoporos is: Mother(V17.81, Z82.62) Status:Active Family history of renal cell carcinoma: Mother(V16.51, Z80.51) Status:Active Family history of hypertensi on: Father(V17.49, Z82.49) Status:Active Family history of malignant neoplasm of breast: Grandmother, Mother, Aunt(V16.3, Z80.3) Status:Active Unknown Family Member Name Dates Details Family history of osteoporos is: Mother(V17.81, Z82.62) Status:Active Family history of renal cell carcinoma: Mother(V16.51, Z80.51) Status:Active Family history of hypertensi on: Father(V17.49, Z82.49) Status:Active Family history of malignant neoplasm of breast: Grandmother, Mother, Aunt(V16.3, Z80.3) Status:Active Unknown Family Member Name Dates Details Family history of osteoporos is: Mother(V17.81, Z82.62) Status:Active Family history of renal cell carcinoma: Mother(V16.51, Z80.51) Status:Active Family history of hypertensi on: Father(V17.49, Z82.49) Status:Active Family history of malignant neoplasm of breast: Grandmother, Mother, Aunt(V16.3, Z80.3) Status:Active Unknown Family Member Name Dates Details Family history of osteoporos is: Mother(V17.81, Z82.62) Status:Active Family history of renal cell carcinoma: Mother(V16.51, Z80.51) Status:Active Family history of hypertensi on: Father(V17.49, Z82.49) Status:Active Family history of malignant neoplasm of breast: Grandmother, Mother, Aunt(V16.3, Z80.3) Status:Active Unknown Family Member Name Dates Details Family history of osteoporos is: Mother(V17.81, Z82.62) Status:Active Family history of renal cell carcinoma: Mother(V16.51, Z80.51) Status:Active Family history of hypertensi on: Father(V17.49, Z82.49) Status:Active Family history of malignant neoplasm of breast: Grandmother, Mother, Aunt(V16.3, Z80.3) Status:Active Unknown Family Member Name Dates Details Family history of osteoporos is: Mother(V17.81, Z82.62) Status:Active Family history of renal cell carcinoma: Mother(V16.51, Z80.51) Status:Active Family history of hypertensi on: Father(V17.49, Z82.49) Status:Active Family history of malignant neoplasm of breast: Grandmother, Mother, Aunt(V16.3, Z80.3) Status:Active Unknown Family Member Name Dates Details Family history of osteoporos is: Mother(V17.81, Z82.62) Status:Active Family history of renal cell carcinoma: Mother(V16.51, Z80.51) Status:Active Family history of hypertensi on: Father(V17.49, Z82.49) Status:Active Family history of malignant neoplasm of breast: Grandmother, Mother, Aunt(V16.3, Z80.3) Status:Active Unknown Family Member Name Dates Details Family history of osteoporos is: Mother(V17.81, Z82.62) Status:Active Family history of renal cell carcinoma: Mother(V16.51, Z80.51) Status:Active Family history of hypertensi on: Father(V17.49, Z82.49) Status:Active Family history of malignant neoplasm of breast: Grandmother, Mother, Aunt(V16.3, Z80.3) Status:Active Unknown Family Member Name Dates Details Family history of osteoporos is: Mother(V17.81, Z82.62) Status:Active Family history of renal cell carcinoma: Mother(V16.51, Z80.51) Status:Active Family history of hypertensi on: Father(V17.49, Z82.49) Status:Active Family history of malignant neoplasm of breast: Grandmother, Mother, Aunt(V16.3, Z80.3) Status:Active Unknown Family Member Name Dates Details Family history of osteoporos is: Mother(V17.81, Z82.62) Status:Active Family history of renal cell carcinoma: Mother(V16.51, Z80.51) Status:Active Family history of hypertensi on: Father(V17.49, Z82.49) Status:Active Family history of malignant neoplasm of breast: Grandmother, Mother, Aunt(V16.3, Z80.3) Status:Active Unknown Family Member Name Dates Details Family history of osteoporos is: Mother(V17.81, Z82.62) Status:Active Family history of renal cell carcinoma: Mother(V16.51, Z80.51) Status:Active Family history of hypertensi on: Father(V17.49, Z82.49) Status:Active Family history of malignant neoplasm of breast: Grandmother, Mother, Aunt(V16.3, Z80.3) Status:Active Unknown Family Member Name Dates Details Family history of osteoporos is: Mother(V17.81, Z82.62) Status:Active Family history of renal cell carcinoma: Mother(V16.51, Z80.51) Status:Active Family history of hypertensi on: Father(V17.49, Z82.49) Status:Active Family history of malignant neoplasm of breast: Grandmother, Mother, Aunt(V16.3, Z80.3) Status:Active Unknown Family Member Name Dates Details Family history of osteoporos is: Mother(V17.81, Z82.62) Status:Active Family history of renal cell carcinoma: Mother(V16.51, Z80.51) Status:Active Family history of hypertensi on: Father(V17.49, Z82.49) Status:Active Family history of malignant neoplasm of breast: Grandmother, Mother, Aunt(V16.3, Z80.3) Status:Active Unknown Family Member Name Dates Details Family history of osteoporos is: Mother(V17.81, Z82.62) Status:Active Family history of renal cell carcinoma: Mother(V16.51, Z80.51) Status:Active Family history of hypertensi on: Father(V17.49, Z82.49) Status:Active Family history of malignant neoplasm of breast: Grandmother, Mother, Aunt(V16.3, Z80.3) Status:Active Unknown Family Member Name Dates Details Family history of osteoporos is: Mother(V17.81, Z82.62) Status:Active Family history of renal cell carcinoma: Mother(V16.51, Z80.51) Status:Active Family history of hypertensi on: Father(V17.49, Z82.49) Status:Active Family history of malignant neoplasm of breast: Grandmother, Mother, Aunt(V16.3, Z80.3) Status:Active Unknown Family Member Name Dates Details Family history of osteoporos is: Mother(V17.81, Z82.62) Status:Active Family history of renal cell carcinoma: Mother(V16.51, Z80.51) Status:Active Family history of hypertensi on: Father(V17.49, Z82.49) Status:Active Family history of malignant neoplasm of breast: Grandmother, Mother, Aunt(V16.3, Z80.3) Status:Active Unknown Family Member Name Dates Details Family history of osteoporos is: Mother(V17.81, Z82.62) Status:Active Family history of renal cell carcinoma: Mother(V16.51, Z80.51) Status:Active Family history of hypertensi on: Father(V17.49, Z82.49) Status:Active Family history of malignant neoplasm of breast: Grandmother, Mother, Aunt(V16.3, Z80.3) Status:Active Unknown Family Member Name Dates Details Family history of osteoporos is: Mother(V17.81, Z82.62) Status:Active Family history of renal cell carcinoma: Mother(V16.51, Z80.51) Status:Active Family history of hypertensi on: Father(V17.49, Z82.49) Status:Active Family history of malignant neoplasm of breast: Grandmother, Mother, Aunt(V16.3, Z80.3) Status:Active Unknown Family Member Name Dates Details Family history of osteoporos is: Mother(V17.81, Z82.62) Status:Active Family history of renal cell carcinoma: Mother(V16.51, Z80.51) Status:Active Family history of hypertensi on: Father(V17.49, Z82.49) Status:Active Family history of malignant neoplasm of breast: Grandmother, Mother, Aunt(V16.3, Z80.3) Status:Active Unknown Family Member Name Dates Details Family history of osteoporos is: Mother(V17.81, Z82.62) Status:Active Family history of renal cell carcinoma: Mother(V16.51, Z80.51) Status:Active Family history of hypertensi on: Father(V17.49, Z82.49) Status:Active Family history of malignant neoplasm of breast: Grandmother, Mother, Aunt(V16.3, Z80.3) Status:Active Unknown Family Member Name Dates Details Family history of osteoporos is: Mother(V17.81, Z82.62) Status:Active Family history of renal cell carcinoma: Mother(V16.51, Z80.51) Status:Active Family history of hypertensi on: Father(V17.49, Z82.49) Status:Active Family history of malignant neoplasm of breast: Grandmother, Mother, Aunt(V16.3, Z80.3) Status:Active Unknown Family Member Name Dates Details Family history of osteoporos is: Mother(V17.81, Z82.62) Status:Active Family history of renal cell carcinoma: Mother(V16.51, Z80.51) Status:Active Family history of hypertensi on: Father(V17.49, Z82.49) Status:Active Family history of malignant neoplasm of breast: Grandmother, Mother, Aunt(V16.3, Z80.3) Status:Active Unknown Family Member Name Dates Details Family history of osteoporos is: Mother(V17.81, Z82.62) Status:Active Family history of renal cell carcinoma: Mother(V16.51, Z80.51) Status:Active Family history of hypertensi on: Father(V17.49, Z82.49) Status:Active Family history of malignant neoplasm of breast: Grandmother, Mother, Aunt(V16.3, Z80.3) Status:Active Unknown Family Member Name Dates Details Family history of osteoporos is: Mother(V17.81, Z82.62) Status:Active Family history of renal cell carcinoma: Mother(V16.51, Z80.51) Status:Active Family history of hypertensi on: Father(V17.49, Z82.49) Status:Active Family history of malignant neoplasm of breast: Grandmother, Mother, Aunt(V16.3, Z80.3) Status:Active Unknown Family Member Name Dates Details Family history of osteoporos is: Mother(V17.81, Z82.62) Status:Active Family history of renal cell carcinoma: Mother(V16.51, Z80.51) Status:Active Family history of hypertensi on: Father(V17.49, Z82.49) Status:Active Family history of malignant neoplasm of breast: Grandmother, Mother, Aunt(V16.3, Z80.3) Status:Active Unknown Family Member Name Dates Details Family history of osteoporos is: Mother(V17.81, Z82.62) Status:Active Family history of renal cell carcinoma: Mother(V16.51, Z80.51) Status:Active Family history of hypertensi on: Father(V17.49, Z82.49) Status:Active Family history of malignant neoplasm of breast: Grandmother, Mother, Aunt(V16.3, Z80.3) Status:Active Unknown Family Member Name Dates Details Family history of osteoporos is: Mother(V17.81, Z82.62) Status:Active Family history of renal cell carcinoma: Mother(V16.51, Z80.51) Status:Active Family history of hypertensi on: Father(V17.49, Z82.49) Status:Active Family history of malignant neoplasm of breast: Grandmother, Mother, Aunt(V16.3, Z80.3) Status:Active Unknown Family Member Name Dates Details Family history of osteoporos is: Mother(V17.81, Z82.62) Status:Active Family history of renal cell carcinoma: Mother(V16.51, Z80.51) Status:Active Family history of hypertensi on: Father(V17.49, Z82.49) Status:Active Family history of malignant neoplasm of breast: Grandmother, Mother, Aunt(V16.3, Z80.3) Status:Active Unknown Family Member Name Dates Details Family history of osteoporos is: Mother(V17.81, Z82.62) Status:Active Family history of renal cell carcinoma: Mother(V16.51, Z80.51) Status:Active Family history of hypertensi on: Father(V17.49, Z82.49) Status:Active Family history of malignant neoplasm of breast: Grandmother, Mother, Aunt(V16.3, Z80.3) Status:Active Relationship Condition Age at Onset Recorded Date/T stacy mother Malignant neoplasm of breast Unknown History of malignant neoplasm of kidney U nknown Osteoporosis Unknown father Hypertension Unknown sister Pre-eclampsia Unknown grandmother Malignant neoplasm of breast Unknown aunt Malignant neoplasm of breast Unknown aunt Acute rheumatoid arthritis Unknown Advance Directives No Advanced Directives Records FoundNo Advanced Directives Records FoundNo Advanced Directives Records FoundNo Advanced Directives Records FoundNo Advanced Directives Records FoundNo Advanced Directives Records FoundNo Advanced Directives Records FoundNo Advanced Directives Records FoundNo Advanced Directives Records FoundNo Advanced Directives Records FoundNo Advanced Directives Records FoundNo Advanced Directives Records FoundNo Advanced Directives Records FoundNo Advanced Directives Records FoundNo Advanced Directives Records Found Chief Complaint Pt here for Post Visit (4 WEEK). Patient had a VAGINAL delivery of a FEMALE infant on 09/05/22 at ( 39 weeks), infant weighed 8# 8oz. Patient is currently BOTTLE feeding STILL PUMPING. Patientwould like to discuss control options. Pt IS NOT HAVING ANY post depression. Pt has NOT resumed sexual activity. Pt has no questions or concerns at this time.Patient is here due to amenorrhea. LMP: 12/04/2021. Patient c/o being tired and breast tenderness. Patient denies any nausea, vomiting, cramps or vaginal bleeding.PT HERE TODAY TO GO OVER RESULTS. PT HAS NO CONCERNS AT THIS TIME. LMP 12/06/21PT IS HERE TODAY FOR A 3 WEEK F/U. SAW DR. OSEI FOR HEAVY BLEEDING AND HE ORDERED BLOOD WORK AND IS HERE TODAY TO DISCUSS THE RESULTS. LMP: 1Patient is here due to heavy periods. Patient states that she goes through 1 super tampon every 1-1.5 hours for the first 2-3 days of her period and that she is passing clots that are the size of twoquarters together. She is not taking control and has not for the last 3 years. She states that she had a D&C in January 2021. Chief Complaint and Reason for Visit Chief Complaint Admit Date PNOB Confirm January 28, 2025 2: 46pm Chief Complaint Admit Date PNOB Confirm January 28, 2025 2: 46pm Amb Documentation January 30, 2025 11:3 6am *NEW* NOB LMP 12/15, TIGIST 09/21February 19, 2 025 2:38pm Reason for Visit Admit Date Amenorrhea January 28, 2025 2:46p m Anxiety February 19, 2025 2:38 pm Cessation of tobacco use prior to pregna ncy February 19, 2025 2:38pm Obesity affecting February 19, 2 025 2:38pm February 19, 2025 2:38 pm Supervision of high-risk February 19, 2025 2:38pm Chief Complaint Admit Date PNOB Confirm January 28, 2025 2: 46pm Amb Documentation January 30, 2025 11:3 6am *NEW* NOB LMP 12/15, TIGIST 09/21February 19, 2 025 2:38pm 13wk OB March 19, 2025 3: 03pm Reason for Visit Admit Date Amenorrhea January 28, 2025 2:46p m Anxiety February 19, 2025 2:38 pm Cessation of tobacco use prior to pregna ncy February 19, 2025 2:38pm Obesity affecting February 19, 2 025 2:38pm February 19, 2025 2:38 pm Supervision of high-risk February 19, 2025 2:38pm Anxiety March 19, 2025 3: 03pm Cessation of tobacco use prior to pregna ncy March 19, 2025 3:03pm Obesity affecting March 19, 2025 3:03pm March 19, 2025 3: 03pm Supervision of high-risk Augus t 2024 3:03pm Chief Complaint Admit Date PNOB Confirm January 28, 2025 2: 46pm Amb Documentation January 30, 2025 11:3 6am *NEW* NOB LMP 12/15, TIGIST 09/21February 19, 2 025 2:38pm 13wk OB March 19, 2025 3: 03pm 17 wk ob April 20, 2025 8:28am Reason for Visit Admit Date Amenorrhea January 28, 2025 2:46p m Anxiety February 19, 2025 2:38 pm Cessation of tobacco use prior to pregna ncy February 19, 2025 2:38pm Obesity affecting February 19, 2 025 2:38pm February 19, 2025 2:38 pm Supervision of high-risk February 19, 2025 2:38pm Anxiety March 19, 2025 3: 03pm Cessation of tobacco use prior to pregna ncy March 19, 2025 3:03pm Obesity affecting March 19, 2025 3:03pm March 19, 2025 3: 03pm Supervision of high-risk Augus t 2024 3:03pm Anxiety April 20, 2025 8:28am Cessation of tobacco use prior to pregna ncy April 20, 2025 8:28am Obesity affecting April 202024 8:28am April 20, 2025 8:28am Supervision of high-risk Septe mber 2024 8:28am Chief Complaint Admit Date PNOB Confirm January 28, 2025 2: 46pm Amb Documentation January 30, 2025 11:3 6am *NEW* NOB LMP 12/15, TIGIST 3/2 February 19, 2 025 2:38pm 13wk OB March 19, 2025 3: 03pm 17 wk ob April 20, 2025 8:28am 21 WK OB May 11, 2025 2 :29pm Reason for Visit Admit Date Amenorrhea January 28, 2025 2:46p m Anxiety February 19, 2025 2:38 pm Cessation of tobacco use prior to pregna ncy February 19, 2025 2:38pm Obesity affecting February 19, 2 025 2:38pm February 19, 2025 2:38 pm Supervision of high-risk February 19, 2025 2:38pm Anxiety March 19, 2025 3: 03pm Cessation of tobacco use prior to pregna ncy March 19, 2025 3:03pm Obesity affecting March 19, 2025 3:03pm March 19, 2025 3: 03pm Supervision of high-risk Augus t 2024 3:03pm Anxiety April 20, 2025 8:28am Cessation of tobacco use prior to pregna ncy April 20, 2025 8:28am Obesity affecting April 202024 8:28am April 20, 2025 8:28am Supervision of high-risk Septe mber 2024 8:28am Anxiety May 11, 2025 2 :29pm Cessation of tobacco use prior to pregna ncy May 11, 2025 2:29pm Fibroid, uterine May 11, 2025 2 :29pm Obesity affecting April 2:29pm May 11, 2025 2 :29pm Supervision of high-risk Octob 2024 2:29pm Additional Source Comments INFORMATION SOURCE (unrecogn ized section and content) DATE CREATED AUTHOR 01/11/2018 [facility] DATE CREATED AUTHOR AUTHOR'S ORGANIZ ATION 01/11/2018 [facility] DATE CREATED AUTHOR AUTHOR'S ORGANIZ ATION 01/24/2018 [facility] DATE CREATED AUTHOR AUTHOR'S ORGANIZ ATION 10/06/2018 [facility] DATE CREATED AUTHOR AUTHOR'S ORGANIZ ATION 04/24/2020 [facility] DATE CREATED AUTHOR AUTHOR'S ORGANIZ ATION 10/03/2022 [facility] DATE CREATED AUTHOR AUTHOR'S ORGANIZ ATION 10/24/[address] [facility] DATE CREATED AUTHOR AUTHOR'S ORGANIZ ATION 04/10/2023 [facility] DATE CREATED AUTHOR AUTHOR'S ORGANIZ ATION 09/27/2023 [facility] DATE CREATED AUTHOR AUTHOR'S ORGANIZ ATION 10/11/2024 [facility] DATE CREATED AUTHOR AUTHOR'S ORGANIZ ATION 11/01/2024 [facility] DATE CREATED AUTHOR AUTHOR'S ORGANIZ ATION 12/07/2024 [facility] DATE CREATED AUTHOR AUTHOR'S ORGANIZ ATION 12/10/2024 [facility] DATE CREATED AUTHOR AUTHOR'S ORGANIZ ATION 05/17/2025 [facility] DATE CREATED AUTHOR AUTHOR'S ORGANIZ ATION 05/30/2025 [facility] <item> Privacy Markings (unrecogniz ed section and content) Section Author: Arabella Pennington PROHIBITION ON REDISCLOSURE OF CONFIDENTIAL INFORMATION This notice accompanies a disclosure of information concerning a client made to you with the consent of such client. Reason for Visit (unrecogniz ed section and content) Reason Comments Ingrown Toenail R great toe nail ing rown x 1 mo - pt states that she gets ingrown nails but this time it is not resolving - pt states that the L great toe nail gets ingrown sometimes as well Reason Comments Procedure R great toe nail ang mical matrixectomy Reason Comments Post-op Post op phenol matri xectomy. Reason Comments Toe Pain Great right toe pain . Possible infection. Redness started 1.5 months ago. Reason Comments abnormal discharge LMP- 10-17-23. C/O ab n discharge x 1 week. Occasional itching and cramping but denies any burning. Slight yellow discoloration but has cleared up the past 2 days. Reason Comments Establish Care Care Teams (unrecognized sec tion and content) Cotton Ball Bagger Relationship Specialty Start Date End Date Lupe Veliz CNP [address] [place] [phone] PCP - General Obstetrics/Gynecology 09/10/17 [employer] Bagger Relationship Specialty Start Date End Date Lupe Veliz CNP [address] [place] [phone] PCP - General Obstetrics/Gynecology 09/10/17 [employer] Bagger Relationship Specialty Start Date End Date Lupe Veliz CNP [address] [place] [phone] PCP - General Obstetrics/Gynecology 09/10/17 Cotton Ball Bagger Relationship Specialty Start Date End Date Lupe Veliz CNP [address] [place] [phone] PCP - General Obstetrics/Gynecology 09/10/17 Cotton Ball Bagger Relationship Specialty Start Date End Date Lupe Veliz CNP [address] [place] [phone] PCP - General Obstetrics/Gynecology 09/10/17 Cotton Ball Bagger Relationship Specialty Start Date End Date Niall Rodriguez MD [address] [place] [phone] PCP - General 04/21/22 [employer] Bagger Relationship Specialty Start Date End Date Niall Rodriguez MD [address] [place] [phone] PCP - General 04/21/22 Team Status: Active Member Role/Relationship Status Dates Dr. Jed Cameron MD Family Provider Active Team Status: Inactive Member Role/Relationship Status Dates Latisha Vega NP [employer]OR [employer]ILER-C Attending Provider Active Start: January 28, 2025 End: January 28, 2025 Team Status: Inactive Member Role/Relationship Status Dates Latisha Vega NP FINAL INSPECTOR [employer] TRAILER-C Attending Provider Active Start: January 28, 2025 End: January 28, 2025 Team Status: Active Member Role/Relationship Status Dates Alyssa Reed RN Attending Provider Active St art: January 30, 2025 Team Status: Inactive Member Role/Relationship Status Dates Johana Hightower CNM Attending Provider Active S tart: February 19, 2025 End: February 19, 2025 Team Status: Inactive Member Role/Relationship Status Dates Johana Hightower CNM Attending Provider Active S tart: February 19, 2025 End: February 19, 2025 Team Status: Inactive Member Role/Relationship Status Dates Dr. Silke Burnett MD Attending Provider Active Start: March 19, 2025 End: March 19, 2025 Team Status: Inactive Member Role/Relationship Status Dates Latisha Vega NP, FIN[employer] INSPECTOR [employer] TRAILER-C Attending physician Active Start: January 28, 2025 End: January 28, 2025 Team Status: Active Member Role/Relationship Status Dates Alyssa Reed RN Attending physician Active S tart: January 30, 2025 Team Status: Inactive Member Role/Relationship Status Dates Johana Hightower CNM Attending physician Active Start: February 19, 2025 End: February 19, 2025 Team Status: Inactive Member Role/Relationship Status Dates Johana Hightower CNM Attending physician Active Start: February 19, 2025 End: February 19, 2025 Team Status: Inactive Member Role/Relationship Status Dates Dr. Silke Burnett MD Attending physician Active Start: March 19, 2025 End: March 19, 2025 Team Status: Inactive Member Role/Relationship Status Dates Latisha Vega NP, NP-C Attending physician Active Start: April 20, 2025 End: April 20, 2025 Team Status: Active Member Role/Relationship Status Dates Johana Hightower CNM Attending physician Active Start: April 20, 2025 Johana Hightower CNM Referring Provider Active S tart: April 20, 2025 Team Status: Inactive Member Role/Relationship Status Dates Johana Hightower CNM Attending physician Active Start: April 20, 2025 End: April 20, 2025 Johana Hightower CNM Referring Provider Active S tart: April 20, 2025 End: April 20, 2025 Team Status: Inactive Member Role/Relationship Status Dates Johana Hightower CNM Attending physician Active Start: May 11, 2025 End: May 11, 2025 Goals (unrecognized section and content) Type Care Experience Labor Preferences-CB /BF classes: []labor support person: []labor intervention preferences: []pain management options preferred: []cut cord/dad catch: []: []PP control planned: []discussed possible routes of delivery and associated risks: []special requests: [] FOR RECORDS PERTAINING TO PATIENTS WHO ARE OR HAVE BEEN ENROLLED IN A CHEMICAL DEPENDENCY/SUBSTANCEABUSE PROGRAM, SOME INFORMATION MAY BE OMITTED. This clinical summary was aggregated from multiple sources. Caution should be exercised in using it in the provision of clinical care. This summary normalizes information from multiple sources, and as a consequence, information in this document may materially change the coding, format and clinical context of patient data. In addition, data may be omitted in some cases. CLINICAL DECISIONS SHOULD BE BASED ON THE PRIMARY CLINICAL RECORDS. [facility]. provides no warranty or guarantee of the accuracy or completeness of information in this document.
[2025-07-08 07:49] LABS: Glucose GTT-Gestation. Fasting 93 mg/dL (<105)
[2025-07-08 10:27] LABS: Glucose GTT-Gestational 1 Hr 154 mg/dL (<190)
[2025-07-08 11:22] LABS: Glucose GTT-Gestational 2 Hr 112 mg/dL (<165)
[2025-07-08 12:06] LABS: Glucose GTT-Gestational 3 Hr 82 L (<145)
== END | disposition home or self-care (01) ==
LOC: LAB 07:02
PROVIDERS: Referring Provider Nurse Practitioner Women's Health; Visit Provider Nurse Practitioner Women's Health
DX: O99.810 Abnormal glucose complicating pregnancy (principal); Z3A.00 Weeks of gestation of pregnancy not specified
CPT/HCPCS: 36415; 82951; 82952